=== PATIENT | male | born 1955 ===

== ENCOUNTER 2020-07-01 12:21 | Outpatient (REF) | payer MEDICARE, MEDICAID, SELFPAY | END 2020-07-01 12:22 | disposition home or self-care (01) | LOC: HO.LAB 12:21 | PROVIDERS: Visit Provider Internal Medicine | DX: Z20.828 Contact with and (suspected) exposure to other viral communicable diseases (principal) | CPT/HCPCS: C9803; U0003 ==

== ENCOUNTER → 2021-02-02 06:56 | Outpatient (REF) | payer MEDICARE, SELFPAY ==
--- NOTE | 2021-02-02 | ECG_ITS ---
Test Reason : F31.9 BIPOLAR DISORD Blood Pressure : / mmHG Vent. Rate : 048 BPM Atrial Rate : 048 BPM P-R Int : 140 ms QRS Dur : 074 ms QT Int : 406 ms P-R-T Axes : 076 067 076 degrees QTc Int : 362 ms Sinus bradycardia Otherwise normal ECG When compared with ECG of 02-APR-2018 09:00, Vent. rate has decreased BY 49 BPM QT has shortened Referred By: Magdalena Fisher Electronically Signed By:SAUD ALEXANDER MD
== END ==
LOC: HO.CARD 06:56
PROVIDERS: PCP Family Medicine; Visit Provider Family Medicine
DX: F31.9 Bipolar disorder, unspecified (principal)
CPT/HCPCS: 93005

== ENCOUNTER → 2021-09-20 11:07 | Outpatient (BNVA) | payer MEDICARE, SELFPAY | PROVIDERS: PCP Registered Nurse Community Health; Referring Provider Registered Nurse Community Health; Visit Provider Physician Assistant | DX: Z12.11 Encounter for screening for malignant neoplasm of colon (principal); F11.90 Opioid use, unspecified, uncomplicated; F40.298 Other specified phobia; R10.13 Epigastric pain | CPT/HCPCS: 99202 ==

== ENCOUNTER 2021-12-03 09:00 | Day surgery (SDC) | payer MEDICARE, SELFPAY ==
[2021-11-29 14:21] VITALS: BMI 19.7
--- NOTE | 2021-12-02 09:37 | P.CONAN_ITS ---
Documented by User: Breonna Encarnacion NP 12/02/21 09:37 HPI - Anesthesia Eval Consult details Narrative: 66yo M for Upper Endoscopy and Colonoscopy Methadone daily PMFSH Active Problems Active Problems: All Active Problems (Updated 11/29/21 @ 14:20 by Grace Siegel RN) Encounter for screening colonoscopy (Acute) Dyspepsia (Acute) Cancer phobia (Acute) Methadone use (Acute) Past Medical History Medical History Anxiety Methadone use Family History Family History Father Cancer Father Cancer Other HTN (hypertension) Surgical History Surgical History History of esophagogastroduodenoscopy (EGD) Hx of colonoscopy Social History Social History Patient Tobacco Use Status: Current everyday Tobacco user Tobacco use type: Cigarette Cigarettes Per Day: 5 Use of substances other than those prescribed or required for medical reasons: No Are you DNR?: No Advance Directives: No Advance Directives Information Provided: Yes Advance Directives on File: No Meds Allergies Allergy/AdvReac Type Severity Reaction Status Date / Time No Known Allergies Allergy Verified 11/29/21 14:21 [No Known Allergies*] Home Medications Medication Instructions Recorded Confirmed Last Taken Type famotidine 40 mg tablet 40 mg PO BID 09/20/21 11/29/21 Unknown History methadone 40 mg soluble tablet 35 mg PO DAILY tab 09/20/21 11/29/21 12/03/21 History nicotine (polacrilex) 4 mg gum mg PO 09/20/21 Unknown History nicotine 14 mg/24 hr daily 1 patch TOPICAL DAILY 09/20/21 11/29/21 Unknown History transdermal patch perphenazine 8 mg tablet 8 mg PO BID 09/20/21 11/29/21 Unknown History Exam Exam Date and Time: December 02, 2021 0937 Height,Weight and Vital Signs: Height 5 ft 6 in Weight 55.338 kg Assessment and Plan Assessment Anesthesia Assessment: Chart Reviewed Documented by User: Moni Brooks MD 12/03/21 10:32 [facility] Past Medical History Medical History Anxiety Methadone use Functional capacity: independent ambulation Family History Family History Father Cancer Father Cancer Other HTN (hypertension) Family history of problems with anesthesia: No Surgical History Surgical History History of esophagogastroduodenoscopy (EGD) Hx of colonoscopy History of Problems with Anesthesia: No Social History Social History Patient Tobacco Use Status: Current everyday Tobacco user Tobacco use type: Cigarette Cigarettes Per Day: 5 Use of substances other than those prescribed or required for medical reasons: No Are you DNR?: No Advance Directives: No Advance Directives Information Provided: Yes Advance Directives on File: No Meds Allergies Allergy/AdvReac Type Severity Reaction Status Date / Time No Known Allergies Allergy Verified 11/29/21 14:21 [No Known Allergies*] Home Medications Medication Instructions Recorded Confirmed Last Taken Type famotidine 40 mg tablet 40 mg PO BID 09/20/21 11/29/21 Unknown History methadone 40 mg soluble tablet 35 mg PO DAILY tab 09/20/21 11/29/21 12/03/21 History nicotine (polacrilex) 4 mg gum mg PO 09/20/21 Unknown History nicotine 14 mg/24 hr daily 1 patch TOPICAL DAILY 09/20/21 11/29/21 Unknown History transdermal patch perphenazine 8 mg tablet 8 mg PO BID 09/20/21 11/29/21 Unknown History Exam Airway Mallampati Class: II TM Dist: >3cm Neck ROM: Full Denture: Upper and Lower Heart: RRR Lungs: CTS Assessment and Plan Final Anesthetic Review Family History of Problems with Anesthesia: No History of Problems with Anesthesia: No NPO: Yes ASA Class: II Final Preanesthetic Review: No Changes in Pt Med Stat, Meds/Allgs Chart Reviewed, Consent Obtained/Reviewed and Anes Risks/Benef Reviewed Patient Risk: Low Procedure Risk: Low Anesthetic Plan Anesthetic Plan: MAC: Disposition: Standard PACU
[2021-12-03 09:17] VITALS: BP 106/72; PULSE 78; RESP 16; TEMP 36.4; O2SAT 97
[2021-12-03] MEDS: Lactated Ringers 1,000 ML 100 ML IVCONT (09:32)
--- NOTE | 2021-12-03 10:10 | MHC.SHP ---
Pre-Procedural Eval Section A Date of Service: 12/03/21 The patient is an INPATIENT: No The History & Physical has been completed within 30 days and I have reviewed it.: No Section B Chief Complaint: screening,epigastric pain Relevant Family History (Specify if Yes): Yes Relevant Social History: Tobacco Use Present Medications: see Short Stay Collaborative assessment Medical History: Significant History (Dyspepsia, cancer phobia, methadone use) History of Previous Operations: Relevant previous surgery/procedure and date(s) (History of EGD and colonoscopy) Allergies: Allergies Allergy/AdvReac Type Severity Reaction Status Date / Time No Known Allergies Allergy Verified 11/29/21 14:21 [No Known Allergies*] Review of Systems Sugical H&P ROS: Negative: Constitution, Cardiovascular and Gastrointestinal and Yes, Specify: Respiratory (chronic cough) Exam Surgical H&P Exam: Normal: Heart, Normal: Lungs, Normal: Extremities and Normal: Abdomen Plan Diagnosis/Plan: Unchanged I have reviewed the history and physical and performed a pertinent physical examination on my patient. No changes have occurred unless specified.
--- NOTE | 2021-12-03 10:12 | W.PM.OPN ---
Operative Note Operative Note Date of Service: 12/03/21 Narrative: Pre-op diagnosis: Colon cancer screening, dyspepsia, family history of throat cancer (Dad in his early 60's) Post-op diagnosis:?other (gastritis, duodenitis, diverticulosis) Procedure: FLEXIBLE TRANSORAL UPPER GASTROINTESTINAL ENDOSCOPY WITH BIOPSIES AND COLONOSCOPY TILL CECUM UPPER ENDOSCOPY Consent:?Indications for the procedure and potential complications of bleeding, perforation, reaction to medications and missed diagnosis were discussed with the patient and informed consent was obtained. Instrument:?Olympus GIF H 190 mid size upper endoscope Monitoring: Vital signs and clinical assessment, continuous EKG monitoring, Pulse oximetry, Carbon Dioxide monitoring and blood pressure monitoring were done throughout the procedure. Procedure:?The patient was placed in the left lateral decubitis position and pre-procedure medications were administered and a bite block was placed. The endoscope was inserted into the mouth and advanced under direct vision to the third part of duodenum. A careful inspection was made as the upper endoscope was withdrawn including a retroflexed examination of the proximal stomach; Findings and interventions are described below. Findings: Larynx:? Normal Esophagus:?GE junction at 40 cms.? No esophagitis or Tolliver's. Stomach:?Mild gastric erythema. Biopsies were obtained. Grade 2 flap valve on retroflexed examination of the cardia. Duodenum:?Mild duodenitis in the bulb and nomral descending duodenum Intervention:?Biopsies as noted above COLONOSCOPY PROCEDURE NOTE Consent:?Indications for the procedure and potential complications of bleeding, perforation, reaction to medications and missed diagnosis were discussed with the patient and informed consent was obtained. Instrument:?Olympus PCF H 190 L variable stiffness pediatric colonoscope Monitoring:?Vital signs and clinical assessment, intermittent blood pressure monitoring, continuous EKG monitoring, Pulse oximetry and Carbon Dioxide monitoring were done throughout the procedure. Colon withdrawl time was 21? minutes. Procedure:?The patient was placed in the left lateral decubitis position and pre-procedure medications were administered. After a digital rectal examination of the ano-rectum, the video colonoscope was inserted into the rectum and advanced through the colon to the cecum. The colonoscope was slowly withdrawn in a retrograde panoramic fashion and the colon mucosa was carefully examined including a retroflexed view of the rectum. Findings and interventions are described below. Procedure Difficulty:?: Colon was long and tortuous and there was spasm and some loop formation Findings: Terminal Ileum: Not evaluated Cecum:? Partially evaluated due to poor prep in the cecum Ascending Colon:??Normal Transverse Colon:??Normal Descending Colon:? Moderate diverticulosis Sigmoid Colon:??Moderate diverticulosis Rectum:??Normal Ano-rectum:??Hypertrophied anal papillae Colon preparation:? Good to fair despite copious irrigation and poor in the cecum due to semi-solid stools Impression and Post Procedure Diagnosis: Endoscopy Findings: STOMACH: Mild gastric erythema. Biopsies were obtained to check for H Pylori. DUODENUM: Mild duodenitis in the bulb Colonoscopy Findings: No polyps were detected Moderate diverticulosis seen in the Left colon Plan: Await pathology results Patient has an appointment on 12/16/21 in the GI Clinic with FRANCO Moss. Repeat Colonoscopy interval based on path results - in 5 years due to fair prep (Bisacodyl 2 tablets daily x 5 days before colonoscopy versus 2 day prep for future colonoscopies). Above findings were reviewed with the patient and diverticulosis handouts were given in the discharge area Surgeon: Rizwan Casas MD Anesthesia:?MAC (Melva Akhtar CRNA) Was an Medical Practitioners used for this Procedure?:?Yes Medical Practitioners:?Idania Sheffield Estimated blood loss (mL):?0 Pathology:?other (a. gastric antrum bx's, r/o h. pylori) Condition:?stable Disposition:?PACU
[2021-12-03 11:33] VITALS: BP 105/56; PULSE 76; RESP 16; TEMP 36.4; O2SAT 99
[2021-12-03 11:48] VITALS: BP 104/62; PULSE 68; RESP 17; TEMP 36.1; O2SAT 97
--- NOTE | 2021-12-03 14:36 | HO.POSTANES ---
Post Anesthesia Evaluation Post Anesthesia Evaluation Vital Signs: Vital Signs Temp Pulse Resp BP Pulse Ox 12/03/21 11:48 97.0 F 68 17 104/62 97 12/03/21 11:33 97.6 F 76 16 105/56 L 99 12/03/21 09:17 97.6 F 78 16 106/72 97 Anesthesia: Monitored Mental Status: Awake Pain Control: Satisfactory Nausea/Vomiting: None Hydration: Adequate Anesthesia-Related Issues: No Anes. Related Issues
== END 2021-12-03 13:10 | disposition home or self-care (01) ==
PROVIDERS: Visit Provider Internal Medicine Gastroenterology
PROC: (CPT 43239; principal; 2021-12-03 10:30)
DX: Z12.11 Encounter for screening for malignant neoplasm of colon (principal); K57.30 Diverticulosis of large intestine without perforation or abscess without bleeding; K62.89 Other specified diseases of anus and rectum; K29.60 Other gastritis without bleeding; K29.80 Duodenitis without bleeding; Z80.1 Family history of malignant neoplasm of trachea, bronchus and lung; F41.1 Generalized anxiety disorder; F11.90 Opioid use, unspecified, uncomplicated; F40.298 Other specified phobia; Z79.899 Other long term (current) drug therapy
CPT/HCPCS: 43239; G0121; 88305; 88342; J2250

== ENCOUNTER → 2021-12-16 08:42 | Outpatient (BNVA) | payer MEDICARE, SELFPAY | PROVIDERS: Visit Provider Physician Assistant | DX: K57.30 Diverticulosis of large intestine without perforation or abscess without bleeding (principal) | CPT/HCPCS: 99212 ==

== ENCOUNTER 2022-03-08 12:37 | Outpatient (REF) | payer MEDICARE, SELFPAY ==
--- NOTE | ~2022-03-08 | XR_ITS ---
EXAMINATION: XR SHOULDER, RIGHT CLINICAL INFORMATION: Shoulder pain COMPARISON: None TECHNIQUE: Four views of the right shoulder. FINDINGS: No fracture or dislocation. The glenohumeral joint is well aligned. Small osteophytes are present. The joint space is maintained. Mild hypertrophic degenerative change of the acromioclavicular joint. The visualized lung is clear. The visualized ribs are intact. XR/XR shoulder RT min 2V IMPRESSION: Mild degenerative changes at the right shoulder.
== END 2022-03-08 12:38 | disposition home or self-care (01) ==
LOC: HO.XRAY 12:37
PROVIDERS: PCP Registered Nurse Community Health; Visit Provider Registered Nurse Community Health
DX: M25.511 Pain in right shoulder (principal)
CPT/HCPCS: 73030

== ENCOUNTER → 2022-03-25 09:59 | Outpatient (BNVA) | payer MEDICARE, SELFPAY | PROVIDERS: PCP Registered Nurse Community Health; Visit Provider Surgery | DX: K40.90 Unilateral inguinal hernia, without obstruction or gangrene, not specified as recurrent (principal); F11.90 Opioid use, unspecified, uncomplicated; R10.13 Epigastric pain | CPT/HCPCS: 99202 ==

== ENCOUNTER 2022-03-30 08:43 | Outpatient (REF) | payer MEDICARE, SELFPAY ==
--- NOTE | 2022-03-30 09:00 | PFT_ITS ---
Forced vital capacity 69%, FEV1 41%, FEV1/FVC ratio is 45, HOT13-47 of 16% and MVV 34%. Post bronchodilator therapy, there is marked improvement in FVC, FEV1, and ONR94-19. Total lung capacity 104% and residual volume 178%. Diffusion capacity 51%. CONCLUSION: Severe obstructive airway disorder with evidence of air trapping. Marked improvement after bronchodilator therapy resulting in partial reversibility. These findings are consistent with asthma/COPD overlap syndrome. Clinical correlation is recommended. MD GERONIMO Pino/MODL / [phone]
== END 2022-03-30 08:44 | disposition home or self-care (01) ==
LOC: HO.RESP 08:43
PROVIDERS: PCP Registered Nurse Community Health; Visit Provider Registered Nurse Community Health
DX: R06.02 Shortness of breath (principal); F17.200 Nicotine dependence, unspecified, uncomplicated
CPT/HCPCS: 94060; 94727; 94729

== ENCOUNTER → 2022-07-13 10:40 | Outpatient (BNVA) | payer OTHER, SELFPAY | PROVIDERS: PCP Registered Nurse Community Health; Visit Provider Internal Medicine | DX: J44.9 Chronic obstructive pulmonary disease, unspecified (principal); F17.210 Nicotine dependence, cigarettes, uncomplicated | CPT/HCPCS: 99202 ==

== ENCOUNTER 2023-03-23 13:26 | Outpatient (REF) | payer OTHER, SELFPAY ==
--- NOTE | ~2023-03-23 | XR_ITS ---
EXAMINATION: XR SHOULDER, BILATERAL CLINICAL INFORMATION: Bilateral Shoulder Pain COMPARISON: None available. TECHNIQUE: AP external rotation, Grashey, scapular Y, and axillary views of the both shoulders. FINDINGS: Examination of the right shoulder show slight elevation of the right humeral head, which could indicate rotator cuff insufficiency. No fracture, dislocation or bone lesion is evident. There are no significant erosive or proliferative findings. Examination of the left shoulder shows no fracture, dislocation or bone lesion. No erosive or proliferative changes are detected. XR/XR shoulder LT min 2V IMPRESSION: 1. Mild elevation of the right humeral head which could indicate chronic rotator cuff insufficiency or thickening. 2. Unremarkable plain radiographs of the left shoulder.
--- NOTE | ~2023-03-23 | XR_ITS ---
EXAMINATION: XR SHOULDER, BILATERAL CLINICAL INFORMATION: Bilateral Shoulder Pain COMPARISON: None available. TECHNIQUE: AP external rotation, Grashey, scapular Y, and axillary views of the both shoulders. FINDINGS: Examination of the right shoulder show slight elevation of the right humeral head, which could indicate rotator cuff insufficiency. No fracture, dislocation or bone lesion is evident. There are no significant erosive or proliferative findings. Examination of the left shoulder shows no fracture, dislocation or bone lesion. No erosive or proliferative changes are detected. XR/XR shoulder RT min 2V IMPRESSION: 1. Mild elevation of the right humeral head which could indicate chronic rotator cuff insufficiency or thickening. 2. Unremarkable plain radiographs of the left shoulder.
== END 2023-03-23 13:27 | disposition home or self-care (01) ==
LOC: HO.HHCX 13:26
PROVIDERS: Visit Provider Family Medicine
DX: S46.011A Strain of muscle(s) and tendon(s) of the rotator cuff of right shoulder, initial encounter (principal); S46.012A Strain of muscle(s) and tendon(s) of the rotator cuff of left shoulder, initial encounter
CPT/HCPCS: 73030

== ENCOUNTER 2023-04-20 09:43 | Outpatient (AMB) | payer OTHER, SELFPAY ==
--- NOTE | 2023-04-20 10:04 | MHC.OFFVIS ---
Intake Intake Visit Reasons: New Pt - Bilateral Shoulder Pain Intake Note: Leon is a 68 year old left hand dominant male who presents today as a new patient with complaints of bilateral shoulder pain. Right should worse than the left shoulder. Patient reports that this pain has been ongoing for about 15 years. 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 Has not done PT in many years, found minimal relief with Tylenol and Lidocaine patches. Allergies No Known Allergies [No Known Allergies*] Allergy (Verified 04/20/23 10:08) Medication List - Last Reconciled 04/20/23 by Jocelyn Shanks, RN albuterol sulfate 90 mcg/actuation 2 puffs inhalation Q6H PRN famotidine 40 mg PO DAILY PRN fluticasone propion-salmeterol 500-50 mcg/dose (Wixela Inhub) 1 inh inhalation BID 30 days methadone 35 mg PO DAILY perphenazine 8 mg PO BID PRN HPI New Pt - Bilateral Shoulder Pain HPI Details Leon is a 68 year old man who presents with complaints of chronic bilateral shoulder pain, R>L. He says his pain has been present for ~15 years. He has pain with daily activity, which he says is primarily in his neck & upper back. He denies any numbness or tingling. He attended PT in [place] in the past, which he did not find particularly helpful. [facility] Medical History (Updated 04/20/23 @ 10:29 by Jaun Powell) Asthma-COPD overlap syndrome Smoker Anxiety Methadone use Surgical History Hx of colonoscopy History of esophagogastroduodenoscopy (EGD) Family History Father Cancer Father Cancer Other HTN (hypertension) Social History Patient Tobacco Use Status: Current everyday Tobacco user Tobacco use type: Cigarette Cigarettes Per Day: 3 Years Smoked: 53 Review of Systems Const All systems reviewed & are unremarkable except as noted in HPI and below Physical Exam Const General: no acute distress, alert and awake Orientation/consciousness: patient oriented x3 HEENT Head: Yes normocephalic and Yes atraumatic Eyes EOM: EOMs intact bilaterally Resp Effort & Inspection: normal respiratory effort and able to speak in complete sentences Cardio Jugular venous distension: no JVD Skin General skin exam: turgor normal Rashes: no rashes Neuro General: patient oriented x3 Extrem Other: Bilateral Shoulders: Tenderness over ky-scapular region & trapezius + H&N on the right, but mild Psych Appearance: grossly normal Affect: normal affect Attitude: cooperative Office Procedures Joint Injection/Drain Joint Injection/Drain Details: Injected 1 mL of Decadron and 3 mL 1% lidocaine and 3 mL of 0.25% Marcaine. Site was prepped using aseptic technique. Patient tolerated the procedure well. Primary Site: right shoulder Approach Used: posterolateral Coding 81254 - Large joint Procedure code (CPT) selection complete Results Reviewed Results Reviewed: 04/20/23 10:16 BUPivacaine MPF 0.25 % [Sensorcaine-MPF 0.25% 10 ML] 10 ml .ROUTE .STK-MED ONE Lidocaine HCl 2 % MPF [Xylocaine 2 % MPF] 5 ml .ROUTE .STK-MED ONE dexAMETHasone sod phosphate [Decadron] 4 mg .ROUTE .STK-MED ONE I personally reviewed relevant radiographs. 1. Mild elevation of the right humeral head which could indicate chronic rotator cuff insufficiency or thickening. 2. Unremarkable plain radiographs of the left shoulder. Assessment & Plan Assessment & Plan (1) Chronic periscapular pain: Code(s): M25.519 - Pain in unspecified shoulder; G89.29 - Other chronic pain Plan: This is a 68 year old man primarily with ky-scapular & thoracic pain, along with right shoulder impingement syndrome He has pain with daily activity, and denies any numbness or tingling. He found limited relief from PT in the past and denies any other treatment. I injected his right shoulder today, which he tolerated well. If this injection is helpful then we can repeat in the future, but I suspect this will not be the case. I think he would benefit from seeing our colleagues in Pain Management for what appears to be periscapular and thoracic back pain instead. (2) Impingement syndrome of right shoulder: Code(s): M75.41 - Impingement syndrome of right shoulder Plan Scribed for Anup Graham MD by Jaun Powell medical sales consultant, on 04/20/23 at 10:15 AM, EST. Coding Level of Care Code New Pt Level 3 (91816) Diagnoses Chronic periscapular pain M25.519; G89.29 Impingement syndrome of right shoulder M75.41 CPT Codes Coding - 96821 Large joint: 72811 - Large joint ([id number])
== END 2023-04-20 10:39 | disposition home or self-care (01) ==
PROVIDERS: PCP Registered Nurse Community Health; Visit Provider Orthopaedic Surgery
DX: M75.41 Impingement syndrome of right shoulder (principal); G89.29 Other chronic pain
CPT/HCPCS: 20610; 99203

== ENCOUNTER → 2023-04-20 09:43 | Outpatient (BNVA) | payer OTHER, SELFPAY | PROVIDERS: PCP Registered Nurse Community Health; Visit Provider Orthopaedic Surgery | DX: M75.41 Impingement syndrome of right shoulder (principal); G89.29 Other chronic pain; M25.511 Pain in right shoulder | CPT/HCPCS: 20610; J1100 ==

== ENCOUNTER 2024-01-16 10:54 | Outpatient (REF) | payer OTHER, SELFPAY ==
--- NOTE | ~2024-01-16 | XR_ITS ---
EXAMINATION: XR SHOULDER, LEFT CLINICAL INFORMATION: Acute left shoulder pain COMPARISON: Radiographs 03/23/2023 TECHNIQUE: AP external rotation, Grashey, scapular Y, and axillary views of the left shoulder. FINDINGS: Mild glenohumeral and moderate acromioclavicular osteoarthritis. No change. No fracture or malalignment. XR/XR shoulder LT min 2V IMPRESSION: Mild glenohumeral and moderate acromioclavicular osteoarthritis.
== END 2024-01-16 10:55 | disposition home or self-care (01) ==
LOC: HO.HHCX 10:54
PROVIDERS: Visit Provider Family Medicine
DX: M25.512 Pain in left shoulder (principal)
CPT/HCPCS: 73030

== ENCOUNTER 2024-02-08 09:05 | Outpatient (AMB) | payer OTHER, SELFPAY ==
[2024-02-08 09:06] VITALS: BMI 19.8
--- NOTE | 2024-02-08 09:06 | MHC.OFFVIS ---
Vital Signs 02/08/24 09:06 Height 5 ft 6 in Weight 122 lb 8 oz BMI 19.8 Intake Visit Reasons: Right inguinal hernia Intake Note: This patient presents for a right inguinal hernia assessment. Pt c/o; reports bulge, reports pain and discomfort, occasional constipation. Shock Absorption Floor Layer Required: No Shock Absorption Floor Layer Services: Shock Absorption Floor Layer Offered & Declined Accompanied by: Other Relationship Allergies No Known Allergies [No Known Allergies*] Allergy (Verified 02/08/24 09:12) Medication List - Last Reconciled 02/08/24 by Asim Delcid MD albuterol sulfate 90 mcg/actuation 2 puffs inhalation Q6H PRN famotidine 40 mg PO DAILY PRN fluticasone propion-salmeterol 500-50 mcg/dose (Wixela Inhub) 1 inh inhalation BID 30 days methadone 35 mg PO DAILY perphenazine 8 mg PO BID PRN HPI HPI Right inguinal hernia: Details: 69-year-old male referred for a right inguinal hernia. He says that he has had this reducible mass on right groin for about 10 years. He however says that he has been worsening with more discomfort. His states that she thinks this has been getting bigger. He has a history of COPD and asthma as well as remote history of drug abuse. He has been on methadone for years now and says he has not used drugs for several years. He says he is healthy overall. [facility] Medical History Asthma-COPD overlap syndrome Smoker Anxiety Methadone use Surgical History Hx of colonoscopy History of esophagogastroduodenoscopy (EGD) Family History Father Cancer Father Cancer Other HTN (hypertension) Social History Patient Tobacco Use Status: Current everyday Tobacco user Tobacco use type: Cigarette Cigarettes Per Day: 3 Years Smoked: 53 Review of Systems Const Denies chills and Denies fever(s) Card Denies chest pain, Denies dyspnea and Denies dyspnea on exertion Resp Denies cough, Denies dyspnea and Denies dyspnea on exertion GI Denies hematochezia and Denies change in bowel habits Denies hematuria and Denies difficulty urinating Musc Denies back pain and Denies limited range of motion Neuro Denies focal weakness and Denies convulsions Psych Denies depression and Denies mood swings Physical Exam Vital Signs: BMI result Body Mass Index 19.8 Const General: comfortable and no acute distress Orientation/consciousness: patient oriented x3 Neck Neck: Yes no lymphadenopathy Resp Auscultation: clear to auscultation bilaterally Cardio Rhythm: regular rhythm GI Other: Reducible mass on the right groin Palpation (GI): Soft to palpation, nontender and no guarding Neuro General: patient oriented x3 Assessment & Plan Assessment & Plan (1) Right inguinal hernia: Code(s): K40.90 - Unilateral inguinal hernia, without obstruction or gangrene, not specified as recurrent Category: Medical Plan He has significant discomfort with his right inguinal hernia. Wants to proceed with repair. I reviewed with him the technique of repair of the right inguinal hernia with mesh. I explained the risks including but not limited to bleeding, infections, bowel injury, injury to other organs including the vas deferens, recurrence, postop pain, as well as the benefits and alternatives. I also explained to him what to expect postoperatively . He understands and wants to proceed. Coding Level of Care Code New Pt Level 3 (17826) Diagnoses Right inguinal hernia K40.90
== END 2024-02-08 09:28 | disposition home or self-care (01) ==
PROVIDERS: PCP Registered Nurse Community Health; Visit Provider Surgery
DX: K40.90 Unilateral inguinal hernia, without obstruction or gangrene, not specified as recurrent (principal)
CPT/HCPCS: 99204

== ENCOUNTER → 2024-02-08 09:05 | Outpatient (BNVA) | payer OTHER, SELFPAY | PROVIDERS: PCP Registered Nurse Community Health; Visit Provider Surgery | DX: K40.90 Unilateral inguinal hernia, without obstruction or gangrene, not specified as recurrent (principal) | CPT/HCPCS: 99202 ==

== ENCOUNTER 2024-02-16 10:28 | Outpatient (AMB) | payer OTHER, SELFPAY ==
--- NOTE | 2024-02-16 11:10 | A.OFFVIS_ITS ---
Vital Signs 02/16/24 11:11 Height 5 ft 6 in Weight 122 lb BMI 19.7 Intake Visit Reasons: OV-B/L shoulder pain-Left shoulder worse Intake Note: Leon is a 69 year old male who presents today for a follow up appointment of his bilateral periscapular pain. He was last seen in April of 2023, where the right shoulder injection. He was also given a referral to pain management for thoracic back and periscapular pain. Patient reports that this injection was helpful he would like to have both of his shoulder injected. 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 He was last seen in April of 2023, where the right shoulder injection. He was also given a referral to pain management for thoracic back and periscapular pain. Patient reports that this injection was helpful he would like to have both of his shoulder injected. 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 [facility] Medical History Asthma-COPD overlap syndrome Smoker Anxiety Methadone use Surgical History Hx of colonoscopy History of esophagogastroduodenoscopy (EGD) Family History Father Cancer Father Cancer Other HTN (hypertension) Social History Patient Tobacco Use Status: Current everyday Tobacco user Tobacco use type: Cigarette Cigarettes Per Day: 3 Years Smoked: 53 Physical Exam Vital Signs: BMI result Body Mass Index 19.7 Const General: no acute distress, alert and awake Orientation/consciousness: patient oriented x3 HEENT Head: Yes normocephalic and Yes atraumatic Eyes EOM: EOMs intact bilaterally Resp Effort & Inspection: normal respiratory effort and able to speak in complete sentences Cardio Jugular venous distension: no JVD Skin General skin exam: turgor normal Rashes: no rashes Neuro General: patient oriented x3 Extrem Other: Bilateral Shoulders: Tenderness over ky-scapular region & trapezius + H&N on the right, but mild Psych Appearance: grossly normal Affect: normal affect Attitude: cooperative Office Procedures Joint Injection/Aspiration Joint Injection/Aspiration Details: Injected 1 mL of Decadron and 3 mL 1% lidocaine and 3 mL of 0.25% Marcaine. Site was prepped using aseptic technique. Patient tolerated the procedure well. Primary Site: right shoulder Secondary Site: left shoulder Approach Used: anterolateral Coding - Large joint 52184 - Glenohumeral/Tronchanteric Bursa/Intraarticular Procedure code (CPT) selection complete Assessment & Plan Assessment & Plan (1) Impingement of both shoulders: Code(s): M25.811 - Other specified joint disorders, right shoulder; M25.812 - Other specified joint disorders, left shoulder Category: Medical Plan: Bilateral shoulder impingement syndrome/ bursitis Injected both shoulders. F/u if no improvment Coding Level of Care Code Est Pt Level 3 (25150) Diagnoses Impingement of both shoulders M25.811; M25.812 CPT Codes Coding - Large joint: 23258 - Large joint ([id number]) Coding - Joint 7: 74680 - Glenohumeral/Tronchanteric Bursa/Intraarticular ([id number])
[2024-02-16 11:11] VITALS: BMI 19.7
== END 2024-02-16 11:32 | disposition home or self-care (01) ==
PROVIDERS: PCP Registered Nurse Community Health; Visit Provider Orthopaedic Surgery
DX: M25.811 Other specified joint disorders, right shoulder (principal); M25.812 Other specified joint disorders, left shoulder
CPT/HCPCS: 20610; 99213

== ENCOUNTER → 2024-02-16 10:28 | Outpatient (BNVA) | payer OTHER, SELFPAY | PROVIDERS: PCP Registered Nurse Community Health; Visit Provider Orthopaedic Surgery | DX: M25.811 Other specified joint disorders, right shoulder (principal); M25.812 Other specified joint disorders, left shoulder | CPT/HCPCS: 20610; 99212; J0665; J1100 ==

== ENCOUNTER 2024-02-22 09:01 | Outpatient (AMB) | payer OTHER, SELFPAY ==
[2024-02-22 09:18] VITALS: BP 94/52; PULSE 61; O2SAT 92; BMI 19.4
--- NOTE | 2024-02-22 09:18 | A.OFFVIS_ITS ---
Vital Signs 02/22/24 09:18 Height 5 ft 6 in Weight 120 lb 2.431 oz BMI 19.4 BP 94/52 L Blood Pressure Location Rt brachial Position Sitting Pulse 61 Pulse Source Pulse Oximeter Pulse Oximetry (%) 92 Oxygen Delivery Method Room Air Intake Visit Reasons: R Inguinal Hernia - Bhavin 03/05 Intake Note: pt is here for pre-op clearance and states he feels well, pt needs refill on Wixela sent to 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 UNDERGOING HERNIORRHAPHY HE WAS LAST SEEN BY ME IN JUNE 2022. HIS THE PULMONARY FUNCTION TEST SHOWED THAT HE HAD RATHER SEVERE OBSTRUCTIVE AIRWAY DISORDER WITH GOOD RESPONSE TO BRONCHODILATORS, C/W ASTHMA/COPD OVERLAP SYNDROME. HE HAS BEEN SMOKING CIGARETTES FOR WHOLE ADULT LIFE. HE CLAIMS THAT HE HAS NOT SMOKED SINCE 8 MONTHS AGO. BREATHING HADDAD FEELING BETTER AND HAS ONLY MILD OCCASIONAL COUGH. HE WORKS AT [employer] AND WALKS AROUND THE WHOLE DAY WITHOUT GETTING SHORT OF BREATH. HIS CURRENT INHALER IS WIXELA 500-50 1 INHALATION B.I.D. HE HARDLY NEEDS TO USE ALBUTEROL. [facility] Medical History Asthma-COPD overlap syndrome Smoker Anxiety Methadone use Surgical History Hx of colonoscopy History of esophagogastroduodenoscopy (EGD) Family History Father Cancer Father Cancer Other HTN (hypertension) Social History Patient Tobacco Use Status: Former Tobacco user Tobacco use type: Cigarette Cigarettes Per Day: 3 Years Smoked: 53 Review of Systems Const All systems reviewed & are unremarkable except as noted in HPI and below Eyes Reports no additional complaints ENT Reports no additional complaints Card Denies chest pain, Denies irregular heart rhythm and Reports dyspnea on exertion (mild) Resp Reports as per HPI and Reports dyspnea on exertion (mild) GI Reports dyspepsia and Reports heartburn (Controlled with med) Reports no additional complaints Musc Reports back pain and Reports myalgias Skin/Breast Reports system reviewed and no additional complaints, except as documented Neuro Reports no additional complaints Psych Reports anxiety Endo Reports no additional complaints Tarun/Lymph Reports no additional complaints Aller/Immun Reports no additional complaints Physical Exam Vital Signs: Last Vital Signs Pulse 61 02/22/24 09:18 BP 94/52 L 02/22/24 09:18 Pulse Ox 92 02/22/24 09:18 Oxygen Delivery Method Room Air 02/22/24 09:18 BMI result Body Mass Index 19.4 Const Other: He is of a thin build, otherwise healthy looking General: comfortable, no acute distress, alert and awake Orientation/consciousness: patient oriented x3 HEENT Head: Yes normal to inspection General nose exam: No nasal polyps present and No nasal discharge present Face and sinus: Yes sinuses nontender Mouth: oropharynx normal Throat: Yes posterior oropharynx normal Eyes General: appearance normal, both eyes and all related structures Neck Neck: Yes normal visual inspection, Yes no lymphadenopathy, Yes trachea midline and Yes no JVD Thyroid: Thyroid normal Chest Chest palpation & inspection: normal inspection of the chest, normal palpation of entire chest wall and no tenderness Resp Other: Percussion note hyper-resonant, Breath sounds are moderately distant with Prolonged expiratory phase NO WHEEZES OR CREPITATIONS ARE HEARD TODAY. Cardio Palpation: normal PMI Rate: regular rate Rhythm: regular rhythm Heart sounds: no gallops and no murmurs Peripheral pulses: Peripheral pulses 2+ throughout GI Palpation (GI): Soft to palpation, nontender, No hepatosplenomegaly present and no masses Auscultation: normal bowel sounds Back/Spine/Pelvis Thoracic/Lumbar Spine: thoracic and lumbar spine normal to inspection Skin General skin exam: no rashes or lesions noted Neuro General: patient oriented x3 and no focal motor deficits Cranial nerves: Yes CN's II-XII intact bilaterally Extrem General: Yes normal to inspection, Yes no clubbing, cyanosis or edema and Yes no calf tenderness Psych Appearance: grossly normal and well kempt Speech and movement: Normal speech and movement present Office Procedures Spirometry Testing Spirometry Comments: In office spirometry completed with results given to Dr Bridges. 28746- Spirometry Results Reviewed Results Reviewed: SPIROMETRY FVC 83% FEV1 54%, FEF 25-75 % c/w moderately severe obstructive airway disorder Assessment & Plan Assessment & Plan (1) Asthma-COPD overlap syndrome: Comment: THIS GENTLEMAN HAS BEEN TREATED FOR ASTHMA/COPD OVERLAP SYNDROME WITH ICS/LABA . COMBINATION AND HAS DONE VERY WELL CURRENTLY HE IS ON WIXELA 500-50 1 INHALATION B.I.D.. HE HARDLY NEEDS TO USE ALBUTEROL HFA. HIS PHYSICAL CAPACITY IS GOOD HE WORKS WHOLE DAY WITHOUT SHORTNESS OF BREATH. Code(s): J44.9 - Chronic obstructive pulmonary disease, unspecified Category: Medical (2) Smoker: Comment: Longstanding history but cut down to 3-5 cigarettes a day for a few years and then has now completely quit. He seems to be well motivated and does not have intention to go back to smoking. Code(s): F17.200 - Nicotine dependence, unspecified, uncomplicated Category: Social Hx Plan: Commended for not smoking. I talked to him about annual lung screening, and he is agreeable So I have made referral for annual lung screening program Plan FAR PULMONARY CLEARANCE IS CONCERNED, HE HAS NO CONTRAINDICATION. FROM PULMONARY POINT OF VIEW HE IS CLEARED FOR SURGERY. . Medications: New fluticasone propion-salmeterol 250-50 mcg/dose (Wixela Inhub) 1 inh inhalation BID 60 ea 5RF asthma/copd 30 days Coding Level of Care Code Est Pt Level 3 (42287) Diagnoses Asthma-COPD overlap syndrome J44.9 Smoker F17.200 CPT Codes Spirometry - CPT: 69719- Spirometry ([id number])
== END 2024-02-22 09:50 | disposition home or self-care (01) ==
PROVIDERS: PCP Registered Nurse Community Health; Visit Provider Internal Medicine
DX: J44.9 Chronic obstructive pulmonary disease, unspecified (principal); F17.200 Nicotine dependence, unspecified, uncomplicated
CPT/HCPCS: 94010; 99213

== ENCOUNTER → 2024-02-22 09:01 | Outpatient (BNVA) | payer OTHER, SELFPAY | PROVIDERS: PCP Registered Nurse Community Health; Visit Provider Internal Medicine | DX: J44.9 Chronic obstructive pulmonary disease, unspecified (principal); F17.210 Nicotine dependence, cigarettes, uncomplicated | CPT/HCPCS: 94010; 99212 ==

== ENCOUNTER 2024-03-05 08:11 | Day surgery (SDC) | payer MEDICARE, SELFPAY ==
[2024-02-22 10:25] VITALS: BP 112/65; PULSE 52; RESP 16; O2SAT 97; BMI 19.4
--- NOTE | 2024-03-04 11:42 | HO.ANESPROP2 ---
Documented by User: Breonna Encarnacion NP 03/04/24 11:43 HPI - Anesthesia Eval Consult details Narrative: 69yo M for Right Hernia Inguinal Reducible with mesh Pulmo optimized PAT 02/22/[address] Ortiz Methadone daily PMFSH Active Problems Active Problems: All Active Problems Personal history of nicotine dependence (Acute) Impingement of both shoulders (Acute) Impingement syndrome of right shoulder (Acute) Chronic periscapular pain (Acute) Right inguinal hernia (Acute) Diverticulosis of colon (Acute) Cancer phobia (Acute) Dyspepsia (Acute) Asthma-COPD overlap syndrome (Acute) Methadone use (Acute) Past Medical History Medical History Methadone use Hepatitis Memory impairment Asthma-COPD overlap syndrome Personal history of nicotine dependence Arthritis Shoulder pain, bilateral Mood disorder Inguinal hernia Dizziness Heartburn Vitamin D deficiency Anxiety Family History Family History Father Cancer Father Cancer Other HTN (hypertension) Family history of problems with anesthesia: No Surgical History Surgical History Hx of hemorrhoidectomy Hx of removal of cyst Hx of colonoscopy History of esophagogastroduodenoscopy (EGD) History of Problems with Anesthesia: No Social History Social History Are you a primary child care center administrator to a significant other at home: No Do you presently have visiting nurse or other home services: No Comment: counts correct Patient Tobacco Use Status: Former Tobacco user Tobacco use type: Cigarette Cigarettes Per Day: 3 Years Smoked: 53 Meds Allergies Allergy/AdvReac Type Severity Reaction Status Date / Time No Known Allergies Allergy Verified 03/05/24 09:00 [No Known Allergies*] Home Medications ?Medication ?Instructions ?Recorded ?Confirmed ?Last Taken ?Type albuterol sulfate 90 mcg/actuation 2 puff inhalation Q6H PRN 07/13/22 02/22/24 Unknown History aerosol inhaler Shortness Of Breath Or Wheezing famotidine 40 mg tablet 40 mg PO DAILY PRN Heartburn 07/13/22 02/22/24 Unknown History ascorbic acid (vitamin C) 500 mg 500 mg PO DAILY 02/22/24 02/22/24 Unknown History tablet (Vitamin C) cyanocobalamin (vitamin B-12) 500 500 mcg PO DAILY 02/22/24 02/22/24 Unknown History mcg tablet (Vitamin B-12) fluticasone 250 mcg-salmeterol 50 1 inh inhalation DAILY asthma/copd 02/22/24 02/22/24 03/05/24 04:00 History mcg/dose blistr powdr for inhalation (Wixela Inhub) methadone 35 mg PO BEDTIME 02/22/24 02/22/24 03/05/24 04:00 History omega 0-gqv-oxt-fish oil 1,000 mg 1 cap PO DAILY 02/22/24 02/22/24 02/27/24 History (120 mg-180 mg) capsule (Fish Oil) Exam Height,Weight and Vital Signs: Height 5 ft 6 in Weight 54.431 kg Last Vital Signs Pulse 52 02/22/24 10:25 Resp 16 02/22/24 10:25 BP 112/65 02/22/24 10:25 Pulse Ox 97 02/22/24 10:25 O2 Del Method Room Air 02/22/24 10:25 Assessment and Plan Assessment Anesthesia Assessment: Chart Reviewed Final Anesthetic Review Family History of Problems with Anesthesia: No History of Problems with Anesthesia: No Documented by User: Chela Orantes MD 03/05/24 12:21 [facility] Active Problems Active Problems: All Active Problems Personal history of nicotine dependence (Acute) Impingement of both shoulders (Acute) Impingement syndrome of right shoulder (Acute) Chronic periscapular pain (Acute) Right inguinal hernia (Acute) Diverticulosis of colon (Acute) Cancer phobia (Acute) Dyspepsia (Acute) Asthma-COPD overlap syndrome (Acute) Methadone use (Acute)- last dose this morning 03/05/24 Smoker- quit 9 months ago Left shoulder pain from arthritis Past Medical History Medical History Methadone use Hepatitis Memory impairment Asthma-COPD overlap syndrome Personal history of nicotine dependence Arthritis Shoulder pain, bilateral Mood disorder Inguinal hernia Dizziness Heartburn Vitamin D deficiency Anxiety Family History Family History Father Cancer Father Cancer Other HTN (hypertension) Family history of problems with anesthesia: No Surgical History Surgical History Hx of hemorrhoidectomy Hx of removal of cyst Hx of colonoscopy History of esophagogastroduodenoscopy (EGD) History of Problems with Anesthesia: No Social History Social History Are you a primary child care center administrator to a significant other at home: No Do you presently have visiting nurse or other home services: No Comment: counts correct Patient Tobacco Use Status: Former Tobacco user Tobacco use type: Cigarette Cigarettes Per Day: 3 Years Smoked: 53 Meds Allergies Allergy/AdvReac Type Severity Reaction Status Date / Time No Known Allergies Allergy Verified 03/05/24 09:00 [No Known Allergies*] Home Medications ?Medication ?Instructions ?Recorded ?Confirmed ?Last Taken ?Type albuterol sulfate 90 mcg/actuation 2 puff inhalation Q6H PRN 07/13/22 02/22/24 Unknown History aerosol inhaler Shortness Of Breath Or Wheezing famotidine 40 mg tablet 40 mg PO DAILY PRN Heartburn 07/13/22 02/22/24 Unknown History ascorbic acid (vitamin C) 500 mg 500 mg PO DAILY 02/22/24 02/22/24 Unknown History tablet (Vitamin C) cyanocobalamin (vitamin B-12) 500 500 mcg PO DAILY 02/22/24 02/22/24 Unknown History mcg tablet (Vitamin B-12) fluticasone 250 mcg-salmeterol 50 1 inh inhalation DAILY asthma/copd 02/22/24 02/22/24 03/05/24 04:00 History mcg/dose blistr powdr for inhalation (Wixela Inhub) methadone 35 mg PO BEDTIME 02/22/24 02/22/24 03/05/24 04:00 History omega 8-wxn-mud-fish oil 1,000 mg 1 cap PO DAILY 02/22/24 02/22/24 02/27/24 History (120 mg-180 mg) capsule (Fish Oil) Exam Height,Weight and Vital Signs: Height 5 ft 6 in Weight 54.431 kg Last Vital Signs Pulse 52 02/22/24 10:25 Resp 16 02/22/24 10:25 BP 112/65 02/22/24 10:25 Pulse Ox 97 02/22/24 10:25 O2 Del Method Room Air 02/22/24 10:25 Vital Signs Temp Pulse Resp BP Pulse Ox O2 Del Method 03/05/24 09:08 97.7 F 48 L 15 105/60 99 Room Air Airway Mallampati Class: II TM Dist: >3cm Neck ROM: Full Denture: Upper Loose/Missing/Broken Teeth: Yes (Full denture top. No teeth bottom) Heart: RRR Lungs: CTAB Assessment and Plan Assessment Anesthesia Assessment: Anesthesia Plan Discussed and Chart Reviewed Final Anesthetic Review Family History of Problems with Anesthesia: No History of Problems with Anesthesia: No NPO: Yes ASA Class: III Final Preanesthetic Review: No Changes in Pt Med Stat, Meds/Allgs Chart Reviewed, Consent Obtained/Reviewed and Anes Risks/Benef Reviewed Patient Risk: Intermediate Procedure Risk: Low Assessment/Block/Sedation in SS: Assess/Block/Sedation-SS Anesthetic Plan Anesthetic Plan: GA Disposition: Standard PACU
[2024-03-05 09:08] VITALS: BP 105/60; PULSE 48; RESP 15; TEMP 36.5; O2SAT 99
[2024-03-05 09:27] VITALS: BMI 19.0
[2024-03-05] MEDS: Lactated Ringers 1,000 ML 100 ML IVCONT (09:53)
--- NOTE | 2024-03-05 11:08 | MHC.SHP ---
Pre-Procedural Eval Section A - 24 Hr Update-Section A only Date of Service: 03/05/24 The patient is an INPATIENT: No Changes since office visit: No Cold of Flu in the past 2 weeks, No New Medical Problems, No Changes in Medication and No Patient answered all questions The patient has been examined within 24 hours of the surgical procedure. The History & Physical has been completed within 30 days and I have reviewed it.: Yes Section B - Complete if H&P > 30 days Chief Complaint: Unilateral inguinal hernia, without obstruction Allergies: Allergies Allergy/AdvReac Type Severity Reaction Status Date / Time No Known Allergies Allergy Verified 03/05/24 09:00 [No Known Allergies*] Plan I have reviewed the history and physical and performed a pertinent physical examination on my patient. No changes have occurred unless specified. Time Spent With Patient Time: Total time managing care of this patient today ____ minutes.
--- NOTE | 2024-03-05 12:19 | W.PM.OPN ---
Operative Note Operative Note Date of Service: 03/05/24 Narrative: Preop Diagnosis: Right inguinal hernia, reducible Postop diagnosis: Right inguinal hernia, reducible, direct Procedure: Repair of a right inguinal hernia with mesh and plug Surgeon: Asim Delcid MD occupational therapist's assistant: FRANCO Acharya The patient is a 69-year-old male with a reducible mass on the right groin consistent with a right inguinal hernia. He understood the technique of repair with mesh and was aware of the risks, benefits, and alternatives He was brought to the operating room and placed supine under general anesthesia via laryngeal mask airway. The right groin was prepped and draped in the usual sterile fashion. A surgical time-out was done. The patient received cefazolin 2 g IV preoperatively I infiltrated the planned line of incision with lidocaine 1%. I made a short incision on the skin along an imaginary line from the anterior superior iliac spine to the pubic ramus using blade 15. This was carried down with electrocautery through the full-thickness of the skin and subcutaneous fat down to the fascia. The external oblique aponeurosis was visualized and was dissected to expose the external ring. I then made an incision on the external oblique aponeurosis to enter the inguinal canal. I applied hemostats on the divided edges of the aponeurosis. I did blunt dissection of the underside of the aponeurosis to create space for the mesh. I then did blunt dissection of the spermatic cord and its contents with my index finger until was able to pass a Fleming drain around this. The Vince drain was used for retraction. I identified vas deferens and the accompanying vessels. These were protected during the dissection. A hernia sac was seen adjacent to this and we this from the rest of the cord contents. This turned out to be a direct hernia on the floor of the canal. I gently dissected down to the floor. I used a large size Prolene plug this was positioned to reinforced the hernia. The plug was secured with Prolene 2 sutures to the shelving edge of the inguinal meant laterally in the internal oblique superiorly medially using the inner leaves of the plug I then reinforced the entire floor with a keyhole mesh. The tails of the mesh were passed around the cord at the level of the internal ring and were secured together with Prolene 2 sutures. I flattened the mesh. The mesh was secured to the pubic ramus inferomedially, the shelving edge of the inguinal ligament laterally as well as the internal oblique medially using Prolene 2 sutures. I then irrigated. Hemostasis was confirmed. I then reapposed the external oblique aponeurosis with Polysorb 2-0 sutures to re-create the external ring The subcutaneous layer was reapposed with Polysorb 3-0 sutures. Skin closure was achieved with Polysorb 4-0 subcuticular running stitch The area was infiltrated with Marcaine 0.5% for postop analgesia and the procedure was completed The patient tolerated the procedure well. There were no immediate complications. Initial and final counts of sponges and instruments were correct. Estimated blood loss was about 10 cc. The patient was extubated without difficulty and transferred to the recovery room with stable vital signs.
[2024-03-05 12:44] VITALS: BP 109/64; PULSE 75; RESP 16; TEMP 36.4; O2SAT 98
[2024-03-05 12:49] VITALS: BP 114/64; BP 117/66; PULSE 67; PULSE 77; RESP 16; O2SAT 97; O2SAT 98
[2024-03-05 12:54] VITALS: BP 126/60; PULSE 83; RESP 16; O2SAT 97
[2024-03-05 13:09] VITALS: BP 111/69; PULSE 81; RESP 16; TEMP 36.4; O2SAT 97
== END 2024-03-05 13:33 | disposition home or self-care (01) ==
PROVIDERS: PCP Family Medicine; Visit Provider Surgery
PROC: (CPT 49505; principal; 2024-03-05 11:20)
DX: K40.90 Unilateral inguinal hernia, without obstruction or gangrene, not specified as recurrent (principal); J45.909 Unspecified asthma, uncomplicated; J44.9 Chronic obstructive pulmonary disease, unspecified; F11.90 Opioid use, unspecified, uncomplicated; Z79.51 Long term (current) use of inhaled steroids; Z79.899 Other long term (current) drug therapy; Z87.891 Personal history of nicotine dependence
CPT/HCPCS: 49505; C1781; J0131; J0690; J1100; J1596; J2250; J2371; J2405; J2704; J2795; J3010

== ENCOUNTER → 2024-03-05 08:11 | Outpatient (BNV) | payer MEDICARE, SELFPAY | PROVIDERS: PCP Family Medicine; Visit Provider Surgery | DX: K40.90 Unilateral inguinal hernia, without obstruction or gangrene, not specified as recurrent (principal) | CPT/HCPCS: 49505 ==

== ENCOUNTER 2024-03-14 10:44 | Outpatient (AMB) | payer OTHER, SELFPAY ==
--- NOTE | 2024-03-14 10:47 | A.OFFVIS_ITS ---
Vital Signs 03/14/24 10:52 Height 5 ft 6 in Weight 120 lb BMI 19.4 Intake Visit Reasons: S/P RIH w/mesh Intake Note: This patient presents for post-op assessment status post right inguinal hernia repair with mesh. Pt c/o; reports no complains pertaining to surgery. 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 He tolerated procedure well. He currently denies significant complaints. He says that he had returned to work 5 days postoperatively. 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 [facility] Medical History Methadone use Hepatitis Memory impairment Asthma-COPD overlap syndrome Personal history of nicotine dependence Arthritis Shoulder pain, bilateral Mood disorder Inguinal hernia Dizziness Heartburn Vitamin D deficiency Anxiety Surgical History History of right inguinal hernia repair (~03/05/24) Hx of hemorrhoidectomy Hx of removal of cyst Hx of colonoscopy History of esophagogastroduodenoscopy (EGD) Family History Father Cancer Father Cancer Other HTN (hypertension) Social History Are you a primary skin care therapist to a significant other at home: No Do you presently have visiting nurse or other home services: No Comment: counts correct Patient Tobacco Use Status: Former Tobacco user Tobacco use type: Cigarette Cigarettes Per Day: 3 Years Smoked: 53 Review of Systems Const Denies chills and Denies fever(s) Card Denies chest pain, Denies dyspnea and Denies dyspnea on exertion Resp Denies cough, Denies dyspnea and Denies dyspnea on exertion GI Denies hematochezia and Denies change in bowel habits Denies hematuria and Denies difficulty urinating Musc Denies back pain and Denies limited range of motion Neuro Denies focal weakness and Denies convulsions Psych Denies depression and Denies mood swings Physical Exam Const Other: Looks well General: comfortable and no acute distress Resp Effort & Inspection: normal respiratory effort GI Other: Right inguinal hernia repair site is healing well, repair intact, not infected Palpation (GI): Soft to palpation, not firm, nontender and no guarding Assessment & Plan Assessment & Plan (1) Right inguinal hernia: Code(s): K40.90 - Unilateral inguinal hernia, without obstruction or gangrene, not specified as recurrent Category: Medical Plan: Status post repair with mesh. He is doing well postoperatively. The repair s ite appears intact. I advised him to avoid lifting anything more than 20 lb for at least 3 more weeks. He can otherwise follow up on a p.r.n. basis. I emphasized to him that he should take it easy at work as he said he returned to work 5 days after the procedure already. Coding Level of Care Code Global (83068) Diagnoses Right inguinal hernia K40.90
[2024-03-14 10:52] VITALS: BMI 19.4
== END 2024-03-14 10:56 | disposition home or self-care (01) ==
PROVIDERS: PCP Family Medicine; Visit Provider Surgery
DX: K40.90 Unilateral inguinal hernia, without obstruction or gangrene, not specified as recurrent (principal)
CPT/HCPCS: 99024

== ENCOUNTER → 2024-03-14 10:44 | Outpatient (BNVA) | payer OTHER, SELFPAY | PROVIDERS: PCP Registered Nurse Community Health; Visit Provider Surgery | DX: Z48.815 Encounter for surgical aftercare following surgery on the digestive system (principal); Z98.890 Other specified postprocedural states | CPT/HCPCS: 99212 ==

== ENCOUNTER 2024-03-21 10:43 | Outpatient (AMB) | payer OTHER, SELFPAY ==
--- NOTE | 2024-03-21 10:59 | MHC.OFFVIS ---
Vital Signs 03/21/24 11:00 Height 5 ft 6 in Weight 120 lb BMI 19.4 BP 102/58 L Blood Pressure Location Lt brachial Position Sitting Pulse 71 Pulse Source Pulse Oximeter Pulse Oximetry (%) 96 Oxygen Delivery Method Room Air Intake Visit Reasons: Asthma/COPD Intake Note: pt is here for follow up and he states his breathing is so/so, his hernia surgery went well. Data Storage Specialist Required: No Allergies No Known Allergies [No Known Allergies*] Allergy (Verified 03/21/24 11:18) Medication List - Last Reconciled 03/21/24 by Braydon Bridges MD albuterol sulfate 90 mcg/actuation 2 puffs inhalation Q6H PRN ascorbic acid (vitamin C) (Vitamin C) 500 mg PO DAILY cyanocobalamin (vitamin B-12) (Vitamin B-12) 500 mcg PO DAILY famotidine 40 mg PO DAILY PRN fluticasone propion-salmeterol 250-50 mcg/dose (Wixela Inhub) 1 inh inhalation DAILY ibuprofen 600 mg PO Q6H PRN [methadone 35 mg PO BEDTIME] omega 3-mwc-fic-fish oil 1,000 mg (120 mg-180 mg) (Fish Oil) 1 cap PO DAILY vitamin E (dl, acetate) 45 mg PO DAILY Do you need a note to return to daycare/school/sports/work: No HPI HPI Asthma/COPD: Details: 67 years old gentleman with history of bronchial asthma and smoking, is here for follow-up. He underwent his surgery ( herniorrhaphy) uneventfully. Since after his surgery he is not smoking at all. His breathing is very stable. Using Wixela 250-50 twice a day but in fact he is now using it only once a day and remains asymptomatic. He is hardly needing to use albuterol . [facility], [facility] Medical History Methadone use Hepatitis Memory impairment Asthma-COPD overlap syndrome Personal history of nicotine dependence Arthritis Shoulder pain, bilateral Mood disorder Inguinal hernia Dizziness Heartburn Vitamin D deficiency Anxiety Surgical History History of right inguinal hernia repair (~03/05/24) Hx of hemorrhoidectomy Hx of removal of cyst Hx of colonoscopy History of esophagogastroduodenoscopy (EGD) Family History Father Cancer Father Cancer Other HTN (hypertension) Social History Are you a primary animal daycare provider to a significant other at home: No Do you presently have visiting nurse or other home services: No Comment: counts correct Patient Tobacco Use Status: Former Tobacco user Tobacco use type: Cigarette Cigarettes Per Day: 3 Years Smoked: 53 Review of Systems Const All systems reviewed & are unremarkable except as noted in HPI and below Eyes Reports no additional complaints ENT Reports no additional complaints Card Denies chest pain, Denies irregular heart rhythm and Reports dyspnea on exertion (mild) Resp Reports as per HPI and Reports dyspnea on exertion (mild) GI Reports dyspepsia and Reports heartburn (Controlled with med) Reports no additional complaints Musc Reports back pain and Reports myalgias Skin/Breast Reports system reviewed and no additional complaints, except as documented Neuro Reports no additional complaints Psych Reports anxiety Endo Reports no additional complaints Tarun/Lymph Reports no additional complaints Aller/Immun Reports no additional complaints Physical Exam Vital Signs: Last Vital Signs Pulse 71 03/21/24 11:00 BP 102/58 L 03/21/24 11:00 Pulse Ox 96 03/21/24 11:00 Oxygen Delivery Method Room Air 03/21/24 11:00 BMI result Body Mass Index 19.4 Const Other: He is of a thin build, otherwise healthy looking General: comfortable, no acute distress, alert and awake Orientation/consciousness: patient oriented x3 HEENT Head: Yes normal to inspection General nose exam: No nasal polyps present and No nasal discharge present Face and sinus: Yes sinuses nontender Mouth: oropharynx normal Throat: Yes posterior oropharynx normal Eyes General: appearance normal, both eyes and all related structures Neck Neck: Yes normal visual inspection, Yes no lymphadenopathy, Yes trachea midline and Yes no JVD Thyroid: Thyroid normal Chest Chest palpation & inspection: normal inspection of the chest, normal palpation of entire chest wall and no tenderness Resp Other: Percussion note hyper-resonant, Breath sounds are moderately distant with Prolonged expiratory phase NO WHEEZES OR CREPITATIONS ARE HEARD TODAY. Cardio Palpation: normal PMI Rate: regular rate Rhythm: regular rhythm Heart sounds: no gallops and no murmurs Peripheral pulses: Peripheral pulses 2+ throughout GI Palpation (GI): Soft to palpation, nontender, No hepatosplenomegaly present and no masses Auscultation: normal bowel sounds Back/Spine/Pelvis Thoracic/Lumbar Spine: thoracic and lumbar spine normal to inspection Skin General skin exam: no rashes or lesions noted Neuro General: patient oriented x3 and no focal motor deficits Cranial nerves: Yes CN's II-XII intact bilaterally Extrem General: Yes normal to inspection, Yes no clubbing, cyanosis or edema and Yes no calf tenderness Psych Appearance: grossly normal and well kempt Speech and movement: Normal speech and movement present Assessment & Plan Assessment & Plan (1) Asthma-COPD overlap syndrome: Comment: THIS GENTLEMAN HAS BEEN TREATED FOR ASTHMA/COPD OVERLAP SYNDROME WITH ICS/LABA COMBINATION AND HAS DONE VERY WELL CURRENTLY HE IS ON WIXELA 250-50 1 INHALATION B.I.D.. HE TELLS ME THAT HE IS USING IT ONLY ONCE A DAY MOST OF THE TIMES. HE HARDLY NEEDS TO USE ALBUTEROL HFA. HIS PHYSICAL CAPACITY IS GOOD HE WORKS WHOLE DAY WITHOUT SHORTNESS OF BREATH. Code(s): J44.9 - Chronic obstructive pulmonary disease, unspecified Category: Medical Plan: ADVISED TO USE WIXELA 250-50 ONCE A DAY BUT INCREASE TO B.I.D. IF STARTS HAVING ANY COUGH OR WHEEZING. I EXPLAINED TO HIM THE IMPORTANCE OF NOT SMOKING . BECAUSE IT IS THE SMOKING OFF CIGARETTES WHICH WILL CAUSE COUGH. HE UNDERSTANDS WELL. Coding Level of Care Code Est Pt Level 3 (22125) Diagnoses Asthma-COPD overlap syndrome J44.9
[2024-03-21 11:00] VITALS: BP 102/58; PULSE 71; O2SAT 96; BMI 19.4
== END 2024-03-21 11:18 | disposition home or self-care (01) ==
LOC: HO.HPS 10:43
PROVIDERS: PCP Family Medicine; Visit Provider Internal Medicine
DX: J44.9 Chronic obstructive pulmonary disease, unspecified (principal)
CPT/HCPCS: 99213

== ENCOUNTER → 2024-03-21 10:43 | Outpatient (BNVA) | payer OTHER, SELFPAY | PROVIDERS: PCP Family Medicine; Visit Provider Internal Medicine | DX: J44.9 Chronic obstructive pulmonary disease, unspecified (principal) | CPT/HCPCS: 99212 ==

== ENCOUNTER 2024-04-22 11:16 | Outpatient (REF) | payer MEDICARE, SELFPAY ==
[2024-04-22 13:26] LABS: MANUAL DIFF FLAG NO
[2024-04-22 13:35] LABS: Basophils Percent Auto 0.5 % (0-2); Eosinophils Absolute Auto 0.3 X10*3/uL (0.0-0.4); Eosinophils Percent Auto 4.8 % (0-4); Hematocrit 40.9 % (42.0-52.0); Hemoglobin 12.9 g/dl (14.0-18.0); Imm Gran Abs Auto 0.01 X10*3/uL (0.00-0.03); Imm Gran Pct Auto 0.2 % (0.0-0.4); Lymphocytes Absolute Auto 2.1 X10*3/uL (1.2-4.9); Lymphocytes Percent Auto 33.8 % (20-40); Mean Corpuscular HGB Conc 31.5 g/dl (31.0-36.0); Mean Corpuscular Hemoglobin 29.7 pg (27.0-33.0); Mean Platelet Volume 10.4 fL (9.4-12.4); Monocytes Absolute Auto 0.5 X10*3/uL (0.1-1.2); Monocytes Percent Auto 8.5 % (2-11); Neutrophils Absolute Auto 3.2 x10*3/uL (2.0-8.3); Neutrophils Percent Auto 52.2 % (45-73); Platelet Count 235 X10*3/uL (160-400); Red Blood Count 4.35 X10*6/uL (4.60-5.80); White Blood Count 6.1 X10*3/uL (4.8-10.8)
[2024-04-22 14:03] LABS: Alanine Aminotransferase 25 U/L (0-40); Albumin Level 4.4 g/dL (3.5-5.0); Alkaline Phosphatase 82 U/L (39-117); Anion Gap 14 (12-20); Aspartate Amino Transferase 24 U/L (5-37); Bilirubin Total 0.5 mg/dL (0.0-1.0); Blood Urea Nitrogen 23 mg/dL (9-16); Carbon Dioxide 25 mmol/L (22-29); Chloride 106 mmol/L (96-108); Cholesterol 170 mg/dL (<200); Estimated Glomerular Filt Rate > 60; Glucose Random 108 mg/dL (60-115); HDL Cholesterol 95 mg/dL (>40); LDL Cholesterol Calculated 69 mg/dL (<100); Potassium 5.2 mmol/L (3.3-5.1); Sodium 140 mmol/L (135-145); Total Protein 7.7 g/dL (6.5-8.0); Triglycerides 31 mg/dL (<150)
[2024-04-22 14:12] LABS: TSH reflex Free T4 1.15 uIU/mL (0.32-4.0); Vitamin D 25-OH Total 46.1 ng/mL (>30)
[2024-04-22 14:24] LABS: Vitamin B12 953 pg/mL (200-900)
[2024-04-22 14:32] LABS: Reflex LDLD? No
[2024-04-22 14:50] LABS: Folate 11.9 ng/mL (> or = 4.0)
[2024-04-23 04:33] LABS: Hepatitis A Antibody IgG REACTIVE (Nonreactive); ~Hepatitis A Antibody IgG 10.36 S/CO (0.00-0.99)
[2024-04-23 04:50] LABS: HBS Num1 0.37 mIU/mL (0-7.99); HBc Num1 0.17 S/CO (0.00-0.79); HBsAGNum1 0.58 S/CO (0.00-0.99); HIV AB/AG Nonreactive (Nonreactive); HIV Num 1 0.07 S/CO (0.00-0.99); Hepatitis B Core Antibody Nonreactive (Nonreactive); Hepatitis B Surface Antigen Negative (Negative); ~HepC Num1 0.12 S/CO (0.00-0.79); ~Hepatitis B Surface Antibody NONREACTIVE (Nonreactive); ~Hepatitis C Antibody Nonreactive (Nonreactive)
== END 2024-04-22 11:17 | disposition home or self-care (01) ==
LOC: HO.HHCL 11:16
PROVIDERS: Visit Provider Family Medicine
DX: R41.3 Other amnesia (principal); E55.9 Vitamin D deficiency, unspecified; Z11.3 Encounter for screening for infections with a predominantly sexual mode of transmission; Z13.220 Encounter for screening for lipoid disorders
CPT/HCPCS: 36415; 80053; 80061; 82306; 82607; 82746; 84443; 85025; 86704; 86706; 86708; 86803; 87340; 87389

== ENCOUNTER 2024-05-03 08:28 | Outpatient (REF) | payer MEDICARE, SELFPAY ==
[2024-05-03 12:18] LABS: Immature Retic Fraction 9.8 % (2.3-13.4); Reticulocyte Percent 0.9 % (0.5-1.8); Reticulocytes Absolute 0.043 X10*6/uL (0.026-0.095)
[2024-05-03 12:46] LABS: Anion Gap 11 (12-20); Blood Urea Nitrogen 21 mg/dL (9-16); Calcium 9.9 mg/dL (8.4-10.2); Carbon Dioxide 29 mmol/L (22-29); Chloride 105 mmol/L (96-108); Estimated Glomerular Filt Rate > 60; Glucose Random 94 mg/dL (60-115); Iron 67 mcg/dL (45-160); Percent Iron Saturation 23 % (15-50); Potassium 5.2 mmol/L (3.3-5.1); Sodium 140 mmol/L (135-145); Total Iron Binding Capacity 286 mcg/dL (228-428); Unsaturated Iron Binding 219 ug/dL
[2024-05-03 13:02] LABS: Ferritin 103 ng/mL (20-250)
[2024-05-03 13:20] LABS: Estimated Average Glucose 114 mg/dL; Hemoglobin A1C 127.4355 umol/L; Hemoglobin A1c % 5.6 % (<6.0); Total Hemoglobin (HGBA1C) 3417.0538 umol/L
== END 2024-05-03 08:29 | disposition home or self-care (01) ==
LOC: HO.HHCL 08:28
PROVIDERS: Visit Provider Family Medicine
DX: E87.5 Hyperkalemia (principal); R73.9 Hyperglycemia, unspecified; D64.9 Anemia, unspecified
CPT/HCPCS: 36415; 80048; 82728; 83036; 83540; 85045

== ENCOUNTER 2024-05-29 07:21 | Outpatient (REF) | payer MEDICARE, SELFPAY | END 2024-05-29 07:22 | disposition home or self-care (01) | LOC: HO.MRI 07:21 | PROVIDERS: PCP Family Medicine; Visit Provider Family Medicine | DX: Z13.89 Encounter for screening for other disorder (principal) ==

== ENCOUNTER 2024-07-11 10:42 | Outpatient (REF) | payer MEDICARE, SELFPAY ==
[2024-07-11 13:30] LABS: Anion Gap 11 (12-20); Blood Urea Nitrogen 19 mg/dL (9-16); Calcium 9.2 mg/dL (8.4-10.2); Carbon Dioxide 29 mmol/L (22-29); Chloride 106 mmol/L (96-108); Estimated Glomerular Filt Rate > 60; Glucose Random 80 mg/dL (60-115); Potassium 4.7 mmol/L (3.3-5.1); Sodium 141 mmol/L (135-145)
== END 2024-07-11 10:43 | disposition home or self-care (01) ==
LOC: HO.HHCL 10:42
PROVIDERS: Visit Provider Family Medicine
DX: E87.5 Hyperkalemia (principal)
CPT/HCPCS: 36415; 80048

== ENCOUNTER 2024-09-13 10:07 | Outpatient (AMB) | payer MEDICARE, SELFPAY ==
--- NOTE | 2024-09-13 10:48 | MHC.OFFVIS ---
Intake Visit Reasons: INJ-Bilat shoulder cortisone injection Intake Note: Leon is a 69 year old left hand dominant male who presents today for a follow up of his bilateral shoulder impingement/burisitis. Injections were administered to bilateral shoulders on 02/16/24.He would like both of his shoulder injected today and reports that he would like to discuss surgery Allergies No Known Allergies [No Known Allergies*] Allergy (Verified 03/21/24 11:18) HPI HPI INJ-Bilat shoulder cortisone injection: Details: 69-year-old gentleman with bilateral shoulder pain. His left is worse than his right. His right shoulder he has pretty good motion. Left shoulder he has pain with overhead activity. [facility] Medical History (Updated 09/16/24 @ 10:34 by Anup Graham MD) Methadone use Hepatitis Memory impairment Asthma-COPD overlap syndrome Personal history of nicotine dependence Arthritis Shoulder pain, bilateral Mood disorder Inguinal hernia Dizziness Heartburn Vitamin D deficiency Anxiety Surgical History History of right inguinal hernia repair (~03/05/24) Hx of hemorrhoidectomy Hx of removal of cyst Hx of colonoscopy History of esophagogastroduodenoscopy (EGD) Family History Father Cancer Father Cancer Other HTN (hypertension) Social History Are you a primary home visit field care manager to a significant other at home: No Do you presently have visiting nurse or other home services: No Comment: counts correct Patient Tobacco Use Status: Former Tobacco user Tobacco use type: Cigarette Cigarettes Per Day: 3 Years Smoked: 53 Physical Exam Extrem Other: Right shoulder with a negative empty can in mildly positive Fletcher and Neer. Left shoulder with 4- out of 5 empty can. Positive Fletcher and Neer. External rotation at 30 degrees bilaterally. Office Procedures Joint Inj/Aspir; Non-Pain Clin Joint Injection/Drain Details: Injected 1 mL of Decadron and 3 mL 1% lidocaine and 3 mL of 0.25% Marcaine. Site was prepped using aseptic technique. Patient tolerated the procedure well. Shoulders, Hips, Knees, Shoulder Injection Large joint 45829: Bilateral Shoulders Coding Procedure code (CPT) selection complete Assessment & Plan Assessment & Plan (1) Internal derangement of shoulder: Code(s): M24.819 - Other specific joint derangements of unspecified shoulder, not elsewhere classified Category: Medical Plan: 69-year-old gentleman with intermittent bilateral shoulder pain. Today the left is greater than the right. Does have some evidence of potential rotator cuff arthropathy on the left. He is not a good surgical candidate. I injected bilateral shoulders. He may follow up as needed. Coding Level of Care Code Est Pt Level 3 (16138) Diagnoses Internal derangement of shoulder M24.819 CPT Codes Shoulders, Hips, Knees, - Shoulder Injection Large joint 00376: Bilateral Shoulders ([id number])
--- OUTSIDE RECORDS SUMMARY | 2024-09-13 11:14 | XMS_ITS | Encounter Summary ---
Author Organization [employer] Address [address] [facility] [address] [place] [address] Care Team Providers Care Inspector Missile Name Role Phone Pauly Sánchez MD Primary Care Provider [phone] Reason for Visit * Reason Comments Pre-visit Planning Pre-visit planning - LVM Encounter Details Date Type Department Care Team ([facility] Contact Info) Description 08/22/2024 Patient Outreach [facility] [address] [place] [address] Pauly Sánchez MD [address] [place] [address] Pre-visit Planning (Pre-visit planning - LVM ) Social History Tobacco Use Types Packs/Day Years Used Date Smoking Tobacco: Some Days Cigarettes 0.3 54 Passive Smoke Exposure: Current Smokeless Tobacco: Never Alcohol Use Standard Drinks/Week Comments Never 0 (1 standard drink = 0.6 oz pur e alcohol) Depression Answer Date Recorded Patient Health Questionnaire-9 Score 0 01/16/2024 Patient Health Questionnaire-9 Score 0 01/16/2024 Last PHQ-9: Questionnaire Data Not on file 0 01/16/2024 Housing Stability Answer Date Recorded What is your housing situation today? I have emilee saldana 01/16/[address] you li ve. Do you have problems with any of the following? None of the above 01/16/2024 Food Insecurity Answer Date Recorded Within the past 12 months, y ou worried that your food would run out before you got money to buy more: Never True 01/16/2024 Within the past 12 months,th e food you bought just didn't last and you didn't have enough money to get more: Never True 08/2023 Transportation Answer Date Recorded In the past 12 months, has l ack of transportation kept you from medical appts, meetings, work or from getting things needed for daily living? No 01/16/2024 Utilities Answer Date Recorded In the past 12 months, has t he electric, gas, oil or water company threatened to shut off services in your home? No 01/16/2024 Depression Answer Date Recorded Patient Health Questionnaire-2 Score 0 01/16/2024 Internet Access Answer Date Recorded Internet Access Q1 Yes 03/15/2024 Internet Access Q2 Not on file 03/15/2024 Sex and Gender Information Value Date Recorded Sex Assigned at Male 05/16/2022 10:38 AM EDT Legal Sex Male 10:38 AM EDT Gender Identity Male 05/16/2022 10:38 AM EDT Sexual Orientation Don't know 04/16/2024 9: 43 AM EDT Sexual Orientation Straight 04/16/2024 9: 43 AM EDT documented as of this encounter Progress Notes * Celestina Samson - 08/22/2024 11:37 AM EST GENESIS Lerbon placed outbound call to patient to complete pre-visit planning. No answer at this time. Patient name and were not confirmed. CC left voicemail requesting return call. Direct contact information provided. documented in this encounter Plan of Treatment Not on file documented as of this encounter Visit Diagnoses Not on filedocumented in this encounter Additional Health Concerns Assessment Noted Time PHQ-9 Depression Total Score: 0 01/16/20 9:53 AM EDT documented as of this encounter Care Teams Inspector Missile Relationship Specialty Start Date End Date Pauly Sánchez MD [address] [place] [id number] PCP - General Family Medicine 01/08/24 documented as of this encounter
--- OUTSIDE RECORDS SUMMARY | 2024-09-13 11:14 | XMS_ITS | Encounter Summary ---
Author Organization [employer] Address [address] [facility] 7t [place] [address] Care Team Providers Care Link Cutter Name Role Phone Pauly Sánchez MD Primary Care Provider [phone] Encounter Details Date Type Department Care Team ([facility] st Contact Info) Description 08/29/2024 Telephone [facility] [address] [place] [address] Pauly Sánchez MD [address] [place] [address] Social History Tobacco Use Types Packs/Day Years [...] AM EDT documented as of this encounter Miscellaneous Notes * Telephone Encounter - Robert Morrow - 08/29/2024 2:38 PM EST FYI to PCP - patient discharged from [facility] - Smoking Cessation effective today. Patient has had >3 consecutive canceled/no showed pharmacy visits and thus will be removed from the outreach list per existing workflow. If, upon further discussion, you feel patient would benefit from pharmacy services please issue a new referral to re-enroll. Thank you. documented in this encounter Plan of Treatment Not on file documented as of this encounter Visit Diagnoses Not on filedocumented in this encounter Additional Health Concerns Assessment Noted Time PHQ-9 Depression Total Score: 0 01/16/20 9:53 AM EDT documented as of this encounter Care Teams Link Cutter Relationship Specialty Start Date End Date Pauly Sánchez MD [address] [place] [address] PCP - General Family Medicine 01/08/24 documented as of this encounter
--- OUTSIDE RECORDS SUMMARY | 2024-09-13 11:14 | XMS_ITS | Encounter Summary ---
Author Organization [employer] Address [address] [facility] 7t [place] [address] Care Team Providers Care Plastic Mould Maker Name Role Phone Pauly Sánchez MD Primary Care Provider [phone] Reason for Visit * Reason Onset Date Comments FMLA 08/29/2024 I called the pat ient, regarding an application for FMLA. He stated that he has not seen the medicaid billing specialist yet, because his appointment is not until 09/13/24 at 10:15. I reminded him of his PCP appointment on 09/09/24 at 10:00. He stated that he needs to have the form completed eugene, because he has been out of work due to shoulder pain, and has not been getting paid. He informed me that he is not getting any relief, from the pain medication that he was prescribed, and would like to know if he co Encounter Details Date Type Department Care Team ([facility] Contact Info) Description 08/29/2024 Telephone [facility] [address] [place], [place] [phone] Pauly Sánchez MD [address] [place], [place] [phone] FMLA (I called the patient, regarding an application for FMLA. He stated that he has not seen the medicaid billing specialist yet, because his appointment is not until 09/13/24 at 10:15. I reminded him of his PCP appointment on 09/09/24 at 10:00. He stated that he needs to have the form completed eugene, because he has been out of work due to shoulder pain, and has not been getting paid. He informed me that he is not getting any relief, from the pain medication that he was prescribed, and would like to know if he co) Social History Tobacco Use Types Packs/Day Years [...] encounter Miscellaneous Notes * Telephone Encounter - Dolores Dupont RN - 08/30/2024 3:47 PM EST Returned phone call to pt to advise of below message from PCP. Advised pt to contact methadone clinic, pt stated he did and they increased his dose by 10mg. Advised him to let methadone provider knowif the pain is still intense. Pt verbalized understanding, said it's okay, I just want to know if they are going to do surgery or what. Advised again to call ortho office back and ask to be on cancellation list. Advised of NTTS allergist/pediatric pulmonologist nurse. Pt verbalized understanding, no further questions. * Telephone Encounter - Dolores Dupont RN - 08/30/2024 10:57 AM EST Telephone call to pt using [facility] interpreter translator Sonido #[id number]. Throughout call, pt did not allow for science interpreter to science interpreter. At end of call, science interpreter hung up early. Called pt back, no answer. During call, pt reports continued left shoulder pain due to torn rotator cuff 02/23. He confirmed heis taking the tylenol with codeine 3x daily but it isn't helping , states the pain is so bad laying down. Advised pt that this medication is only meant to be taken 2x daily however he reported again the pain is bad. He denies taking other pain meds except reports is on methadone. Advised him to call [facility] Orthopedics office daily and ask about cancellations for earlier appt. Advised him message would be sent to PCP in interim to advise on pain management. At this point, science interpreter hung up andpt hung up and did not answer return call. * Telephone Encounter - Sienna Farah MA - 08/29/2024 2:34 PM EST I called the patient, regarding an application for FMLA. He stated that he has not seen the medicaid billing specialist yet, because his appointment is not until 09/13/24 at 10:15. I reminded him of his PCPappointment on 09/09/24 at 10:00. He stated that he needs to have the form completed eugene, because he has been out of work due to shoulder pain, and has not been getting paid. He informed me that he is not getting any relief, from the pain medication that he was prescribed, and would like to know ifhe could be prescribed a different medication. A message will be sent to the Green Team nurses, asking them to contact him regarding meds. He verbalized understanding. documented in this encounter Plan of Treatment Not on file documented as of this encounter Visit Diagnoses Not on filedocumented in this encounter Additional Health Concerns Assessment Noted Time PHQ-9 Depression Total Score: 0 01/16/20 24 9:53 AM EDT documented as of this encounter Care Teams Plastic Mould Maker Relationship Specialty Start Date End Date Pauly Sánchez MD [address] [place] [address] PCP - General Family Medicine 01/08/24 documented as of this encounter
--- OUTSIDE RECORDS SUMMARY | 2024-09-13 11:14 | XMS_ITS | Encounter Summary ---
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 Pauly Sánchez MD [address] [place] [phone] Phone: tel: fax: [facility] Orthopedics [address] [place] [address] Phone: tel: Referral ID Status Reason Start Date Expiration Date Visits Requested Visits Authorized [id number] Authorized Specialty Services Required 08/22/2024 08/22/2025 1 1 Reason for Visit * Reason Onset Date Comments Results 08/22/2024 Encounter Details Date Type Department Care Team ([facility] st Contact Info) Description 08/22/2024 Telephone [facility] [address] [place] [address] Pauly Sánchez MD [address] [place], [place] [phone] Results Social History Tobacco Use Types Packs/Day Years [...] encounter Miscellaneous Notes * Telephone Encounter - Yomaira Day RN - 08/23/2024 11:11 AM EST TC placed to pt with BLS safety instructor Cat #[id number] to inform that PCP reviewed latest MRI results which showed a rotator cuff tendon tear. Pt will be referred to a orthopaedic specialist to go over all treatment options and next steps going forward. Pt states that he is agreeable to having a refillon the prescribed Acetaminophen-Codeine (Tylenol w/Codeine #3). Will forward this message to PCP for refill * Telephone Encounter - Pauly Sánchez MD - 08/22/2024 4:29 PM EST Informed of abnormal MRI report by our nurse. Patient has been hesitant to proceed to the surgery because he is concerned about his recovery time. MRI done at [facility] on 08/16/24 showed rotator cuff tear of left shoulder. Will refer to orthopedist. 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
--- OUTSIDE RECORDS SUMMARY | 2024-09-13 11:14 | XMS_ITS | Encounter Summary ---
Author Organization [employer] Address [address] [facility] 7t [place] [address] Care Team Providers Care Dental Sales Representative Name Role Phone Pauly Sánchez MD Primary Care Provider [phone] Reason for Visit * Reason Onset Date Comments chart prep 09/03/2024 Encounter Details Date Type Department Care Team ([facility] st Contact Info) Description 09/03/[address] [facility] [address] [place], [place] [phone] Leigh Bonilla MA chart prep Social History Tobacco Use Types Packs/Day Years [...] encounter Miscellaneous Notes * Telephone Encounter - Leigh Bonilla MA - 09/03/2024 3:46 PM EST ..chart Prep Labs: not applicable Images: not applicable Vaccines due: Hep A Due, RSV in Pharmacy Due, and Shingles in pharmacy Due Referrals: Orthopedics Pending appointment on 09/13/24 Screenings: Not Applicable Overdue care gaps: None documented in this encounter Plan of Treatment Not on file documented as of this encounter Visit Diagnoses Not on filedocumented in this encounter Additional Health Concerns Assessment Noted Time PHQ-9 Depression Total Score: 0 01/16/20 9:53 AM EDT documented as of this encounter Care Teams Dental Sales Representative Relationship Specialty Start Date End Date Pauly Sánchez MD [address] [place] [phone] PCP - General Family Medicine 01/08/24 documented as of this encounter
--- OUTSIDE RECORDS SUMMARY | 2024-09-13 11:14 | XMS_ITS | Clinical Summary ---
Author Organization [employer] Address [address] [place] [address] [address] [place] [address] Care Team Providers Care Select Banker Name Role Phone Josr Sánchez MD Primary Care Provider [phone] Allergies No known active allergies Medications acetaminophen (Tylenol Extra Strength) 500 MG tablet Take 2 tablets (1,000 mg) by mouth every 8 (eight) hours if needed for moderate pain. 180 tablet 1 01/16/20 24 Active Melatonin 3 MG capsule Take 1 capsule by mouth 2 hours prior to your desired bedtime 30 capsule 3 01/16/20 24 Active famotidine (Pepcid) 20 MG tabletIndicati ons:Heartburn Take 1 tablet (20 mg) by mouth if needed in the morning and at bedtime for heartburn. 180 tablet 2 09/09/19 25 Active acetaminophen- codeine (Tylenol w/ Codeine #3) 300-30 MG tabletIndicati ons:Chronic left shoulder pain Take 1 tablet by mouth if needed in the morning and at bedtime for severe pain. 56 tablet 09/09/19 25 Active budesonide-for moterol (Symbicort) 80-4.5 MCG/ACT inhalerIndicat ions:Chronic obstructive pulmonary disease, unspecified COPD type (CMS/HCC) Inhale 2 puffs in the morning and at bedtime. Rinse mouth with water after use to reduce aftertaste and incidence of candidiasis. Do not swallow. 10.2 g 1 09/09/19 25 Active albuterol 108 (90 Base) MCG/ACT inhaler Inhale 2 puffs every 4 (four) hours if needed for wheezing or shortness of breath. Maximum 8 puffs per day 18 g 3 09/09/19 25 026 Active Umeclidinium [place] (Incruse Ellipta) 62.5 MCG/ACT aerosol powder Inhale 1 Act (62.5 mcg) Once per day. 30 Act 09/09/19 25 Active Umeclidinium [place] (Incruse Ellipta) 62.5 MCG/ACT aerosol powder Inhale 1 puff Once per day. 1 each 11 01/16/20 24 025 Discontinued(Re order (will not trigger notification to Pharmacy)) budesonide-for moterol (Symbicort) 80-4.5 MCG/ACT inhalerIndicat ions:Chronic obstructive pulmonary disease, unspecified COPD type (CMS/HCC) Inhale 2 puffs in the morning and at bedtime. Rinse mouth with water after use to reduce aftertaste and incidence of candidiasis. Do not swallow. 10.2 g 1 01/16/20 24 025 Discontinued(Re order (will not trigger notification to Pharmacy)) albuterol 108 (90 Base) MCG/ACT inhaler Inhale 2 puffs every 4 (four) hours if needed for wheezing or shortness of breath. Maximum 8 puffs per day 18 g 3 01/16/20 24 025 Discontinued(Re order (will not trigger notification to Pharmacy)) famotidine (Pepcid) 20 MG tabletIndicati ons:Heartburn Take 1 tablet (20 mg) by mouth if needed in the morning and at bedtime for heartburn. 180 tablet 2 04/22/20 24 025 Discontinued(Re order (will not trigger notification to Pharmacy)) acetaminophen- codeine (Tylenol w/ Codeine #3) 300-30 MG tabletIndicati ons:Chronic left shoulder pain Take 1 tablet by mouth if needed in the morning and at bedtime for severe pain. 56 tablet 07/11/20 24 025 Discontinued(Re order (will not trigger notification to Pharmacy)) acetaminophen- codeine (Tylenol w/ Codeine #3) 300-30 MG tabletIndicati ons:Chronic left shoulder pain Take 1 tablet by mouth if needed in the morning and at bedtime for severe pain. 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 with orthopedist Assessment & Plan (07/11/2024 12:02 PM EST): - Takes Tylenol for the pain but he says it is ineffective Assessment & Plan (04/22/2024 10:59 AM EDT): - left-handed - X-ray on 01/16/24 showed mild glenohumeral and moderate acromioclavicular osteoarthritis. - seen [place] Dr. Graham, [facility] on 02/16/24 - patient has tried maximum dose of APAP which was ineffective. He has tried tramadol. - patient does not want to increase methadone dose - will try T#3 twice daily - will consider evaluating with MRI due to limited range of motion - consider cardiac work-up and GI work-up for referred pain Assessment & Plan (01/16/2024 12:09 PM EDT): - patient was advised to call orthopedist to schedule an appointment - will evaluate with XR today - continue acetaminophen - will consider evaluating with MRI due to limited range of motion Vitamin D deficiency 01/16/2024 Memory impairment 01/16/2024 Assessment & Plan (01/16/2024 12:11 PM EDT): - will order labs - patient states that he was seen by neurologist in the past, will obtain records Generalized abdominal pain 01/16/2024 Assessment & Plan (04/22/2024 10:35 AM EDT): - DDx: gastritis; dyspepsia; +risk factors for cancer - patient has noticed elevated BG - last EGD in November 2021 - underweight - check lab - consider further evaluation with CT or MRCP if patient's BG is elevated Tobacco dependence 01/16/2024 Assessment & Plan (09/09/2024 10:08 AM EST): - Pt smokes occasionally and uses a nicotine patch - given number to reschedule LDCT since pt missed appt. due to work. Assessment & Plan (07/11/2024 12:01 PM EST): - Pt smokes occasionally and uses a nicotine patch Assessment & Plan (04/26/2024 2:41 PM EDT): - given number to reschedule LDCT since pt missed appt. due to work. Assessment & Plan (01/16/2024 12:10 PM EDT): - will order lung cancer screening CT Dizziness 04/04/2023 Assessment & Plan (04/04/2023 6:07 PM EDT): DDx: dehydration, orthostatis hypotension, hypoglycemia, vertigo Glucose WNL Initial BP 120/67 MA obtained orthostatic BP measurements Lying 98/70 Sitting 98/70 Standing 104/72 Educated pt to drink 8 bottles of water/day Measure BP in the morning when he feels dizzy Get up slowly to prevent falls RTC 1-2 weeks if dizziness continues F/u PRN Heartburn 04/04/2023 Overview (04/04/2023): Occasional sx Improved w/ famotidine 20 mg BID Assessment & Plan (09/09/2024 10:27 AM EST): - EGD by Dr. Casas [facility] on 12/03/21. No malignancy or atypical cells. Negative H. pylori - continue famotidine - reduce tobacco use, minimize NSAIDs use Assessment & Plan (07/18/2024 5:32 AM EST): - EGD by Dr. Casas [facility] on 12/03/21. No malignancy or atypical cells. Negative H. Pylori. - continue famotidine, will check H.pylori - reduce tobacco use, minimize NSAIDs use Assessment & Plan (04/22/2024 10:29 AM EDT): - EGD by Dr. Casas [facility] on 12/03/21. No malignancy or atypical cells. Negative H. Pylori. - continue famotidine, will check H.pylori - reduce tobacco use, minimize NSAIDs use Assessment & Plan (01/16/2024 12:08 PM EDT): - continue famotidine, will check H.pylori - reduce tobacco use, minimize NSAIDs use Assessment & Plan (04/04/2023 6:10 PM EDT): Refill Famotidine Avoid triggers: chocolate, spicy, caffeine, ETOH, tobacco use F/u prn Asthma-COPD overlap syndrome 04/04/2023 Assessment & Plan (09/09/2024 10:29 AM EST): - 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 see horse groomer, last seen in JUN 2022, patient was prescribed Symbicort but does not have currently - continue Symbicort and Incruse - continue albuterol PRN - continue working on smoking cessation - advised to reschedule chest CT, given number to call Assessment & Plan (09/08/2024 6:15 PM EST): >>ASSESSMENT AND PLAN FOR CHRONIC OBSTRUCTIVE PULMONARY DISEASE ([facility]) WRITTEN ON 04/04/2023 6:07 PM BY OSMEL BALTAZAR Refill symbicort Care managed by Pulm F/u PRN Assessment & Plan (09/08/2024 6:15 PM EST): >>ASSESSMENT AND PLAN FOR CHRONIC OBSTRUCTIVE PULMONARY DISEASE ([facility]/HCC) WRITTEN ON 01/16/2024 12:06 PM BY BERT DAVIES - 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 see horse groomer, last seen in JUN 2022, patient was prescribed Symbicort but does not have currently - will restart Symbicort and will start incruse - continue albuterol PRN - continue working on smoking cessation - will order lung cancer screening chest CT Assessment & Plan (09/08/2024 6:15 PM EST): >>ASSESSMENT AND PLAN FOR CHRONIC OBSTRUCTIVE PULMONARY DISEASE ([facility]/HCC) WRITTEN ON 04/26/2024 2:40 PM BY VINCE MANCILLA - 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 see horse groomer, last seen in JUN 2022, patient was prescribed Symbicort but does not have currently - continue Symbicort and Incruse - continue albuterol PRN - continue working on smoking cessation - advised to reschedule chest CT, given number to call Assessment & Plan (09/08/2024 6:15 PM EST): >>ASSESSMENT AND PLAN FOR CHRONIC OBSTRUCTIVE PULMONARY DISEASE ([facility]) WRITTEN ON 07/18/2024 5:32 AM BY JOSR SÁNCHEZ MD - 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 see horse groomer, last seen in JUN 2022, patient was prescribed Symbicort but does not have currently - continue Symbicort and Incruse - continue albuterol PRN - continue working on smoking cessation - advised to reschedule chest CT, given number to call Right inguinal hernia 03/23/2023 Assessment & Plan (04/22/2024 10:45 AM EDT): - s/p right inguinal hernia repair by Dr. Delcid on 03/14/24 Assessment & Plan (01/16/2024 12:07 PM EDT): - patient was evaluated by general surgeon in MAR 2022, patient was asymptomatic at that time and agreed to observe symptoms - currently he is having pain and requests a new referral, will make a new referral Strain of rotator cuff of both shoulders 023 Overview (04/04/2023): Bilateral shoulder Xrays showed 1. Mild elevation of the right humeral head which could indicate chronic rotator cuff insufficiency or thickening. 2. Unremarkable plain radiographs of the left shoulder. Pain is continuing in shoulders. Aggravated by cleaning floors by hand Received physical therapy about 8-9 years ago. Assessment & Plan (09/09/2024 10:08 AM EST): Refer to physical therapy and Ortho for further assessment and treatment Continue Lidocaine cream Rx Ibuprofen 800 mg TID PRN. Educated take with food May take at same time of Tylenol or stagger dosing RTC if pain worsens F/u PRN Assessment & Plan (04/04/2023 6:11 PM EDT): Refer to physical therapy and Ortho for further assessment and treatment Continue Lidocaine cream Rx Ibuprofen 800 mg TID PRN. Educated take with food May take at same time of Tylenol or stagger dosing RTC if pain worsens F/u PRN Assessment & Plan (03/23/2023 1:21 PM EDT): Pt primarily hoping for a note for work for a few days until the machine that cleans the floors get fixed. Exam is consistent with rotator sprain and arthritits of the shoulder. Xray ordered. No time for PT at the moment, has a partner that can massage the area. Trial of lidocaine cream and tylenol ordered. If no improvement will consider ortho referral. 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 Assessment & Plan (09/09/2024 10:08 AM EST): - patient is currently taking 30 mg daily, and does not want to increase for pain management Assessment & Plan (04/22/2024 11:00 AM EDT): - patient is currently taking 30 mg daily, and does not want to increase for pain management Assessment & Plan (01/16/2024 12:10 PM EDT): - patient is currently taking 35 mg daily Encounters Date Type Department Care Team Description 09/09/2024 10:00 AM EST Office Visit [facility] [place] [address] Josr Sánchez MD Chronic obstructive pulmonary disease, unspecified COPD type (CMS/HCC) (Primary Dx); Strain of rotator cuff of both shoulders; Impingement of both shoulders; Chronic left shoulder pain; Tobacco dependence; Methadone dependence ([facility]); Heartburn; Asthma-COPD overlap syndrome (CMS/HCC) 09/09/2024 Travel 09/03/[address] [address] Leigh Bonilla [place] chart prep 08/29/[address] [address] Josr Sánchez MD 08/29/[address] [address] Josr Sánchez MD FMLA (I called the patient, regarding an application for FMLA. He stated that he has not seen the culinary specialist yet, because his appointment is not [...] would like to know if he co) 08/23/2024 Orders Only [facility] [place] [address] Josr Sánchez MD Chronic left shoulder pain 08/22/[address] [address] Josr Sánchez MD Results 08/22/2024 Patient Outreach [address] [address] Josr Sánchez MD Pre-visit Planning (Pre-visit planning - LVM ) 07/18/[address] [address] Josr Sánchez MD 07/12/[address] [address] Josr Sánchez MD 07/11/2024 10:00 AM EST Office Visit [address] [address] Josr Sánchez MD Chronic obstructive pulmonary disease, unspecified COPD type (CMS/HCC) (Primary Dx); Tobacco dependence; Impingement of both shoulders; Chronic left shoulder pain; Strain of rotator cuff of both shoulders; Heartburn; Protein-calorie malnutrition, unspecified severity (CMS/HCC); Hyperkalemia 07/11/2024 Travel 07/08/[address] [address] Leigh Bonilla [place] chart prep 07/03/[address] [address] Josr Sánchez MD from Last 3 Months Immunizations Name Administration Dates Next Due Influenza High-dose Quadrivalent Preservative Fr ee 07/30/2020 Influenza Quadrivalent Adjuvanted 04/07/2023 Influenza injectable quadrivalent preservative f ree 06/17/2019 Influenza, High Dose Seasonal, Preservative Free 04/22/2024 Pfizer Covid-19 Vaccine 12+ 04/22/2024, Pneumococcal Conjugate PCV 20 01/16/2024 Tdap 01/16/2024 Social History Tobacco Use Types Packs/Day Years Used Date Smoking Tobacco: Some Days Cigarettes 0.3 54 Passive Smoke Exposure: Current Smokeless Tobacco: Never Tobacco Cessation:Ready to Q uit: Not Asked; Counseling Given: Not Answered Alcohol Use Standard Drinks/Week Comments Never 0 (1 standard drink = 0.6 oz pur e alcohol) Depression Answer Date Recorded Patient Health Questionnaire-9 Score 0 09/09/2024 Patient Health Questionnaire-9 Score 0 09/09/2024 Last PHQ-9: Questionnaire Data Not on file 0 09/09/2024 Housing Stability Answer Date Recorded What is [...] Date Recorded Patient Health Questionnaire-2 Score 0 09/09/2024 Internet Access Answer Date Recorded Internet Access Q1 Yes 03/15/2024 Internet Access Q2 Not on file 03/15/2024 Sex and Gender Information Value Date Recorded Sex Assigned at Male 05/16/2022 10:38 AM EDT Legal Sex Male 10:38 AM EDT Gender Identity Male 05/16/2022 10:38 AM EDT Sexual Orientation Don't know 04/16/2024 9: 43 AM EDT Sexual Orientation Straight 04/16/2024 9: 43 AM EDT Last Filed Vital Signs Vital Sign Reading Time Taken Comments Blood Pressure 97/58 09/09/2024 10:03 AM EST Pulse 84 09/09/2024 10:03 AM EST Temperature 36.4 ??C (97.5 ??F) 09/09/2024 10:[address] Respiratory Rate 12 09/09/2024 10:03 AM EST Oxygen Saturation 95% 09/09/2024 10:03 AM EST Inhaled Oxygen Concentration - - Weight 54.6 kg (120 lb 6.4 oz) 09/09/2024 10:03 AM EST Height 172.7 cm (5' 8 ) 09/09/2024 10:03 AM EST Body Mass Index 18.31 09/09/2024 10:03 AM EST Plan of Treatment Health Maintenance Due Date Last Done Comments CT Colonography 1955 FIT DNA/Cologuard 1955 FIT 1955 FOBT 1955 Sigmoidoscopy 1955 Hepatitis A Vaccines (1 of 2 - Risk 2-dose series) 1974 Zoster Vaccines (1 of 2) 2005 RSV Patients and Patients Aged 60 years or older (1 - Risk 60-74 years 1-dose series) 2015 SDOH Screening 01/15/2025 01/16/2024 Alcohol/Substance Use Screening 04/22/2025 04/22/2024 Depression Screening 09/09/2025 09/09/2024, 09/09/19 Tobacco Screening 09/09/2025 09/09/2024 Lipid Panel 04/22/2029 04/22/2024, 02/04/2021 Colonoscopy 12/04/2031 12/03/2021 Colorectal Cancer Screening 12/04/2031 DTaP/Tdap/Td Vaccines (2 - Td or Tdap) 01/15/2034 01/16/2024 Pneumococcal Vaccine: 50+ Years Completed 01/16/2024 COVID-19 Vaccine Completed 04/22/2024, 08/2023, 03/31/2021, Additional history exists Hepatitis C Screening Completed 04/22/2024, 021 Influenza Vaccine Completed 04/22/2024, , 07/30/2020, Additional history exists HIB Vaccines Aged Out No longer eligi ble based on patient's age to complete this topic HPV Vaccines Aged Out No longer eligi ble based on patient's age to complete this topic Hepatitis B Vaccines Aged Out No long er eligible based on patient's age to complete this topic IPV Vaccines Aged Out No longer eligi ble based on patient's age to complete this topic Meningococcal Vaccine Aged Out No beatrice janak eligible based on patient's age to complete this topic RSV under 20 months Aged Out No longe r eligible based on patient's age to complete this topic Rotavirus Vaccines Aged Out No longer eligible based on patient's age to complete this topic Procedures Procedure Name Priority Date/Time Associated Diagnosis Comments BASIC METABOLIC PANEL Routine 07/11/2024 10:44 AM EST Hyperkalemia HEPATITIS C AB W/REFL TO HCV RNA, QN, PCR Routine 04/22/2024 11:27 AM EDT Routine screening for STI (sexually transmitted infection) LIPID PANEL WITH REFLEX TO DIRECT LDL Routine 04/22/2024 11:27 AM EDT Screening for lipid disorders [facility] COLONOSCOPY Routine 12/03/2021 from Last 3 Months or Most Recently Relevant to Health Maintenance Results * (ABNORMAL) Basic Metabolic Panel (07/11/2024 10:44 AM EST) Sodium 141 135 - 145 mmol/L [facility] Potassium 4.7 3.3 - 5.1 mmol/L [facility] Chloride 106 96 - 108 mmol/L [facility] Carbon Dioxide 29 22 - 29 mmol/L [facility] Anion Gap 11(L) 12 - 20 [facility] Urea Nitrogen (BUN) 19(H) 9 - 16 mg/dL [facility] Creatinine, Serum 0.81 0.5 - 1.4 mg/dL [facility] Estimated Glomerular Filt Rate >60 [facility] Comment:Chronic Kidney Disea se: Estimated GFR < 60 mL/min/1.50x5Hlohlk Kidney Disease: Estimated GFR < 15 mL/min/1.73m2 Glucose 80 60 - 115 mg/dL [facility] Calcium 9.2 8.4 - 10.2 mg/dL [facility] Blood Venous blood specimen / Unknown 07/11/2024 10:44 AM EST 07/11/2024 1:02 PM EST us Josr áSnchez MD LAB BLOOD ORDERABLES Final Resul t [facility] [address] [place] [address] [phone] * Lipid Panel with Reflex to Direct LDL (04/22/2024 11:27 AM EDT) Triglycerides 31 <150 mg/dL [facility] Comment:Desirable Triglyceri de: less than 150 mg/dLBorderline High Triglyceride 150-199 mg/dLHigh Triglyceride: 200-499 mg/dLVery High Triglyceride: greater than or equal to 5OO mg/dL Cholesterol 170 <200 mg/dL [facility] Comment:Desirable Cholestero l: less than 200 mg/dLBorderline High Cholesterol: 200-239 mg/dLHigh Cholesterol: greater than 239 mg/dL LDL Cholesterol Calculated 69 <100 mg/dL [facility] Comment:Desirable LDL: less than 100 mg/dLNear Optimal/Above Optimal LDL: 110- 129 mg/dLBorderline High LDL: 130-159 mg/dLHigh LDL: 160-189 mg/dLVery High LDL: greater than or equal to 190 mg/dL HDL Cholesterol 95 >40 mg/dL [facility] Comment:Desirable HDL: great er than 40 mg/dL Note: This HDL assay may give artificially low results in patients with liver disease. Blood 04/22/2024 11:2 7 AM EDT 04/22/2024 1:13 PM EDT Josr Sánchez MD LAB BLOOD ORDERABLES Final Resul t Performing Organization Address City/[facility] Co de Phone Number [facility] [address] [place] [phone] * Hepatitis C Antibody with Reflex to HCV, RNA, Quantitative, Real-Time PCR (04/22/2024 11:27 AM EDT) Hepatitis C Antibody Nonreactive Nonreactive [facility] Comment:Antibodies to HCV no t detected; does not exclude early acuteHCV infection. Blood Venous blood specimen / Unknown 04/22/2024 11:27 AM EDT 04/22/2024 1:13 PM EDT us Josr Sánchez MD LAB BLOOD ORDERABLES Final Resul t Performing Organization Address City/[facility]/ZIP Co de Phone Number [facility] [address] [place] [phone] * Hm Colonoscopy (12/03/2021) Colonoscopy Normal Normal 12/03/2021 Historical Provider HEALTH MAINTENANCE Final Result from Last 3 Months or Most Recently Relevant to Health Maintenance Insurance MEDICARE Care Teams [employer] Relationship Specialty Start Date End Date Josr Sánchez MD [address] [place] [phone] PCP - General Family Medicine 01/08/24
--- OUTSIDE RECORDS SUMMARY | 2024-09-13 11:14 | XMS_ITS | Encounter Summary ---
Author Organization [employer] Address [address] [facility] [address] [place] [address] Care Team Providers Care [employer] Name Role Phone Pauly Sánchez MD Primary Care Provider [phone] Encounter Details Date Type Department Care Team (Latest Contact Info) Description 09/09/2024 Travel Social History Tobacco Use Types Packs/Day Years [...] AM EDT documented as of this encounter Plan of Treatment Not on file documented as of this encounter Visit Diagnoses Not on filedocumented in this encounter Additional Health Concerns Assessment Noted Time PHQ-9 Depression Total Score: 0 09/09/19 25 10:04 AM EST documented as of this encounter Care Teams [employer] Relationship Specialty Start Date End Date Pauly Sánchez MD [address] [place] [phone] PCP - General Family Medicine 01/08/24 documented as of this encounter
--- OUTSIDE RECORDS SUMMARY | 2024-09-13 11:14 | XMS_ITS | Encounter Summary ---
Author Organization [employer] Address [address] [facility] [address] [place] [address] Care Team Providers Care Bottom Filler Name Role Phone Pauly Sánchez MD Primary Care Provider [phone] Encounter Details Date Type Department Care Team (Late st Contact Info) Description 08/23/2024 Orders Only [facility] [address] [place] [address] Pauly Sánchez MD [address] [place] [address] Chronic left shoulder pain Social History Tobacco Use Types Packs/Day Years [...] as of this encounter Visit Diagnoses Diagnosis Chronic left shoulder pain Pain in joint, shoulder region documented in this encounter Additional Health Concerns Assessment Noted Time PHQ-9 Depression Total Score: 0 01/16/20 9:53 AM EDT documented as of this encounter Care Teams Bottom Filler Relationship Specialty Start Date End Date Pauly Sánchez MD [address] [place] [phone] PCP - General Family Medicine 01/08/24 documented as of this encounter
--- OUTSIDE RECORDS SUMMARY | 2024-09-13 11:14 | XMS_ITS | Encounter Summary ---
Author Organization [employer] Address [address] [facility] 7[address] [place] [address] Care Team Providers Care Control Cabinet Assembler Name Role Phone Pauly Sánchez MD Primary Care Provider [phone] Encounter Details Date Type Department Care Team (Late st Contact Info) Description 09/09/2024 10:00 AM EST Office Visit [facility] [address], [place] [phone] Pauly Sánchez MD [address] [place] [address] Chronic obstructive pulmonary disease, unspecified COPD type (CMS/HCC) (Primary Dx); Strain of rotator cuff of both shoulders; Impingement of both shoulders; Chronic left shoulder pain; Tobacco dependence; Methadone dependence (CMS/HCC); Heartburn; Asthma-COPD overlap syndrome (CMS/HCC) Social History Tobacco Use Types Packs/Day Years [...] AM EDT documented as of this encounter Last Filed Vital Signs Vital Sign Reading [...] Mass Index 18.31 09/09/2024 10:03 AM EST documented in this encounter Miscellaneous Notes * Assessment & Plan Note - Sonu Miles - 09/09/2024 10:29 AM ESTAssociated Problem(s): Asthma-COPD overlap syndrome (CMS/HCC) - 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 Casas [facility] on 12/03/21. No malignancy or atypical cells. Negative H. pylori - continue famotidine - reduce tobacco use, minimize NSAIDs use * Assessment & Plan Note - Sonu Miles - 09/09/2024 10:08 AM ESTAssociated Problem(s): Methadone dependence (CMS/HCC) - patient is currently taking 30 mg daily, and does not want to increase for pain management * Assessment & Plan Note - Sonu Miles - 09/09/2024 10:08 AM ESTAssociated Problem(s): Strain of rotator cuff of both shoulders Refer to physical therapy and Ortho for further assessment and treatment Continue Lidocaine cream Rx Ibuprofen 800 mg TID PRN. Educated take with food May take at same time of Tylenol or stagger dosing RTC if pain worsens F/u PRN * Assessment & Plan Note - Sonu Miles - 09/09/2024 10:07 AM ESTAssociated Problem(s): Chronic left shoulder pain - Takes Tylenol with codeine - Pt is on methodone - MRI on 08/16/24 showed full-thickness tear of superior fibre of infraspinatus tendon with mild muscle atrophy - Pt has upcoming appt. with orthopedist * Assessment & Plan Note - Pauly Sánchez MD - 09/08/2024 5:55 PM ESTAssociated Problem(s): Tobacco dependence - Pt smokes occasionally and uses a nicotine patch - given number to reschedule LDCT since pt missed appt. due to work. documented in this encounter Plan of Treatment Not on file documented as of this encounter Visit Diagnoses Diagnosis Chronic obstructive pulmonary disease, unspecified COPD type (CMS/HCC)- Primary Strain of rotator cuff of both shoulders Impingement of both shoulders Chronic left shoulder pain Pain in joint, shoulder region Tobacco dependence Tobacco use disorder Methadone dependence (CMS/HCC) Opioid type dependence, unspecified abuse Heartburn Asthma-COPD overlap syndrome (CMS/HCC) documented in this encounter Additional Health Concerns Assessment Noted Time PHQ-9 Depression Total Score: 0 09/09/19 25 10:04 AM EST documented as of this encounter Care Teams Control Cabinet Assembler Relationship Specialty Start Date End Date Pauly Sánchez MD [address] [place] [id number] PCP - General Family Medicine 01/08/24 documented as of this encounter
--- OUTSIDE RECORDS SUMMARY | 2024-09-13 11:14 | XMS_ITS | Encounter Summary ---
Author Organization [employer] Address [address] [place] [address] 7 [place] [address] Care Team Providers Care Orthopedic Rn Name Role Phone Kary Ordoñez Primary Care Provider [phone] Sandy Avelar MD Primary Care Pro vider Pauly Sánchez MD Primary Care Provider [phone] Encounter Details Date Type Department Care Team (Late st Contact Info) Description 07/12/2022 Orders Only [facility] [address] [place] [address] Nereyda Castillo LPN Social History Tobacco Use Types Packs/Day Years Used Date Smoking Tobacco: Never Assessed Sex and Gender Information Value Date Recorded [...] Diagnoses Not on filedocumented in this encounter Care Teams Orthopedic Rn Relationship Specialty Start Date End Date Kary Ordoñez FNP PCP - General Family Medicine 03/14/22 04/24/23 Sandy Avelar MD [address] [place] [id number] PCP - General Internal Medicine 04/25/23 01/07/24 Pauly Sánchez MD [address] [place] [id number] PCP - General Family Medicine 01/08/24 documented as of this encounter
== END 2024-09-13 11:04 | disposition home or self-care (01) ==
PROVIDERS: PCP Family Medicine; Visit Provider Orthopaedic Surgery
DX: M24.812 Other specific joint derangements of left shoulder, not elsewhere classified (principal); M24.811 Other specific joint derangements of right shoulder, not elsewhere classified
CPT/HCPCS: 20610; 99213

== ENCOUNTER → 2024-09-13 10:07 | Outpatient (BNVA) | payer MEDICARE, SELFPAY | PROVIDERS: PCP Family Medicine; Visit Provider Orthopaedic Surgery | DX: M25.812 Other specified joint disorders, left shoulder (principal); M25.811 Other specified joint disorders, right shoulder; M75.52 Bursitis of left shoulder; M75.51 Bursitis of right shoulder | CPT/HCPCS: 20610; 99212; J0665; J1100; J2003 ==

== ENCOUNTER 2024-12-13 10:07 | Outpatient (AMB) | payer MEDICARE, SELFPAY ==
--- NOTE | 2024-12-13 10:14 | MHC.OFFVIS ---
Intake Visit Reasons: INJ-Bilat shoulder inj - last 09/13/24 Intake Note: Leon is a 69 year old left hand dominant male who presents today for a follow up of his bilateral shoulder impingement/bursitis. Injections were administered to bilateral shoulders on 09/13/24. He is not a surgical candidate - Patient reports that the right shoulder injection was helpful but the left shoulder remain painful. He would like to discuss pain with provider prior to proceeding with injections Allergies No Known Allergies [No Known Allergies*] Allergy (Verified 03/21/24 11:18) HPI HPI INJ-Bilat shoulder inj - last 09/13/24: Details: Leon is a 69 year old left hand dominant male who presents today for a follow up of his bilateral shoulder impingement/bursitis. Injections were administered to bilateral shoulders on 09/13/24. He is not a surgical candidate - Patient reports that the right shoulder injection was helpful but the left shoulder remain painful. He is left-hand dominant. He had an MRI from July of this year. He states he fell about 2 years ago and has had difficulty with overhead activity since then. He has had injections states he has done physical therapy and states his only medical issue is occasional gastritis and he has been on methadone for years. He is on a stable dose and does not want to increase. His complaint is pain and weakness but not loss of motion. [facility] Medical History (Updated 12/13/24 @ 11:11 by Anup Graham MD) Methadone use Hepatitis Memory impairment Asthma-COPD overlap syndrome Personal history of nicotine dependence Arthritis Shoulder pain, bilateral Mood disorder Inguinal hernia Dizziness Heartburn Vitamin D deficiency Anxiety Surgical History History of right inguinal hernia repair (~03/05/24) Hx of hemorrhoidectomy Hx of removal of cyst Hx of colonoscopy History of esophagogastroduodenoscopy (EGD) Family History Father Cancer Father Cancer Other HTN (hypertension) Social History Are you a primary customer care voice consultant to a significant other at home: No Do you presently have visiting nurse or other home services: No Comment: counts correct Patient Tobacco Use Status: Former Tobacco user Tobacco use type: Cigarette Cigarettes Per Day: 3 Years Smoked: 53 Physical Exam Extrem Other: Left shoulder with 4/5 strength on empty can testing. 45/90/140/T10 patient she play see fracture and c5- 7 degenerative disc disease Results Reviewed Results Reviewed: I personally reviewed the MR images. MRI from July of 2024 shows a full-thickness tear of the supraspinatus with mild atrophy. Assessment & Plan Assessment & Plan (1) Rotator cuff tear, left: Code(s): M75.102 - Unspecified rotator cuff tear or rupture of left shoulder, not specified as traumatic Category: Medical Plan: This is a 69-year-old gentleman with a history of opioid addiction has been on methadone for years. He has difficulty raising his left arm to engage in daily activities and pain at night. He has had injections and therapy but feels frustrated that his pain is so persist in his so severe. I think arthroplasty is premature and while I am not 100% positive that the tear is fixable I think it is reasonable to attempt arthroscopic rotator cuff repair. I discussed with him of the surgery. I discussed with him the risks, benefits and alternatives of surgery including to, but not limited to, the risk of infection, stiffness, incomplete symptom resolution, medical complications associated with surgery. He expressed understanding and we will proceed forward accordingly. Coding Level of Care Code Est Pt Level 4 (13603) Diagnoses Rotator cuff tear, left M75.102
--- OUTSIDE RECORDS SUMMARY | 2024-12-13 10:41 | XMS_ITS | Clinical Summary ---
Author Organization [employer] Address [address] [place] [address] [address] [place] [address] Care Team Providers Care Hedis Specialist Name Role Phone Josr Sánchez MD Primary Care Provider [phone] Allergies No known active allergies Medications acetaminophen (Tylenol Extra Strength) 500 MG tablet Take 2 tablets (1,000 mg) by mouth every 8 (eight) hours if needed for moderate pain. 180 tablet 1 4 Active Melatonin 3 MG capsule Take 1 capsule by mouth 2 hours prior to your desired bedtime 30 capsule 3 4 Active famotidine (Pepcid) 20 MG tabletIndication s:Heartburn Take 1 tablet (20 mg) by mouth if needed in the morning and at bedtime for heartburn. 180 tablet 2 5 Active acetaminophen-co deine (Tylenol w/ Codeine #3) 300-30 MG tabletIndication s:Chronic left shoulder pain Take 1 tablet by mouth if needed in the morning and at bedtime for severe pain. 56 tablet 5 Active albuterol 108 (90 Base) MCG/ACT inhaler Inhale 2 puffs every 4 (four) hours if needed for wheezing or shortness of breath. Maximum 8 puffs per day 18 g 3 5 09/09/19 26 Active Umeclidinium [place] (Incruse Ellipta) 62.5 MCG/ACT aerosol powder Inhale 1 Act (62.5 mcg) Once per day. 30 Act 11 5 Active Symbicort 80-4.5 MCG/ACT inhalerIndicatio ns:Chronic obstructive pulmonary disease, unspecified COPD type (CMS/HCC) INHALE 2 PUFFS BY MOUTH TWICE DAILY IN THE MORNING AND AT BEDTIME, RINSE MOUTH AFTER USING. DO NOT SWALLOW 10.2 g 1 5 Active Active Problems Problem Noted Date Diagnosed Date [...] acromioclavicular osteoarthritis. - seen by Dr. Graham, [facility] on 02/16/24 - patient has tried [...] AM EST): - EGD by Dr. Casas [facility] on 12/03/21. No malignancy or atypical cells. Negative H. pylori - continue famotidine - reduce tobacco use, minimize NSAIDs use Assessment & Plan (07/18/2024 5:32 AM EST): - EGD by Dr. Casas [facility] on 12/03/21. No malignancy or atypical cells. Negative H. Pylori. - continue famotidine, will check H.pylori - reduce tobacco use, minimize NSAIDs use Assessment & Plan (04/22/2024 10:29 AM EDT): - EGD by Dr. Casas [facility] on 12/03/21. No malignancy or atypical [...] Asthma-COPD overlap syndrome 04/04/2023 Assessment & Plan (09/13/2024 11:53 AM EST): - 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 see veterinary manager, last seen in Mar 2024, patient was prescribed Wixela but does not have currently - continue umeclidinium (Incruse) - restart SMART with budesonide / formoterol (Symbicort) - continue albuterol PRN - continue working on smoking cessation - advised to reschedule chest CT, given number to call Assessment & Plan (09/08/2024 6:15 PM EST): >>ASSESSMENT AND PLAN FOR CHRONIC OBSTRUCTIVE PULMONARY DISEASE (CMS/HCC) WRITTEN ON 04/04/2023 6:07 PM BY OSMEL BALTAZAR Refill symbicort Care managed by Pulm F/u PRN Assessment & Plan (09/08/2024 6:15 PM EST): >>ASSESSMENT AND PLAN FOR CHRONIC OBSTRUCTIVE PULMONARY DISEASE (CMS/HCC) WRITTEN ON 01/16/2024 12:06 PM BY BERT DAVIES - 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 see veterinary manager, last seen in JUN 2022, patient was prescribed Symbicort but does not have currently - will restart Symbicort and will start incruse - continue albuterol PRN - continue working on smoking cessation - will order lung cancer screening chest CT Assessment & Plan (09/08/2024 6:15 PM EST): >>ASSESSMENT AND PLAN FOR CHRONIC OBSTRUCTIVE PULMONARY DISEASE ([facility]/HCC) WRITTEN ON 04/26/2024 2:40 PM BY VINCE MANCILLA - 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 see veterinary manager, last seen in JUN 2022, patient was prescribed Symbicort but does not have currently - continue Symbicort and Incruse - continue albuterol PRN - continue working on smoking cessation - advised to reschedule chest CT, given number to call Assessment & Plan (09/08/2024 6:15 PM EST): >>ASSESSMENT AND PLAN FOR CHRONIC OBSTRUCTIVE PULMONARY DISEASE ([facility]/HCC) WRITTEN ON 07/18/2024 5:32 AM BY JOSR SÁNCHEZ MD - 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 see veterinary manager, last seen in JUN 2022, patient was [...] Encounters Date Type Department Care Team Description 11/09/2024 Refill [facility] [address] [place] [address] Josr Sánchez MD Chronic obstructive pulmonary disease, unspecified COPD type ([facility]/HCC) 10/10/2024 Telephone [facility] [address] [place] [address] Josr Sánchez MD Appointment Request from Last 3 Months Immunizations Immunization Administration Dates Next Due Influenza High-dose Quadrivalent [...] 43 AM EDT Sexual Orientation Straight 04/16/2024 9 :43 AM EDT Last Filed Vital Signs Vital [...] 09/09/2024 10:03 AM EST Plan of Treatment Upcoming Encounters Date Type Department Care Team (Late st Contact Info) Description 12/18/2024 10:15 AM EDT Office Visit [facility] [address], [place] [phone] Josr Sánchez MD [address] [place], [place] [phone] Health Maintenance Due Date Last Done Comments CT Colonography 1955 FIT DNA/Cologuard 1955 FIT 1955 FOBT 1955 Sigmoidoscopy 1955 Zoster Vaccines (1 of 2) 2005 RSV Patients and Patients Aged 60 years or older (1 - Risk 60-74 years 1-dose series) 2015 COVID-19 Vaccine ( season) 2024 04/22/2024, 01/16/2024, 03/31/2021, Additional history exists SDOH Screening 01/15/2025 01/16/2024 Alcohol/Substance Use Screening 04/22/2025 04/22/2024 Depression Screening 09/09/2025 09/09/2024, 09/09/19 Tobacco Screening 09/13/2025 09/13/2024 Lipid Panel 04/22/2029 04/22/2024, 02/04/2021 Colonoscopy 12/04/2031 12/03/2021 Colorectal Cancer Screening 12/04/2031 DTaP/Tdap/Td Vaccines (2 - Td or Tdap) 01/15/2034 01/16/2024 Pneumococcal Vaccine: 50+ Years Completed 01/16/2024 Hepatitis C Screening Completed 04/22/2024, 021 Influenza Vaccine Completed 04/22/2024, , 07/30/2020, Additional history exists HIB Vaccines Aged Out No longer eligi ble based on patient's age to complete this topic HPV Vaccines Aged Out No longer eligi ble based on patient's age to complete this topic Hepatitis A Vaccines Aged Out No long er eligible based on patient's age to complete this topic Hepatitis B Vaccines Aged Out No long er eligible based on patient's age to complete this topic IPV Vaccines Aged Out No longer eligi ble based on patient's age to complete this topic Meningococcal B Vaccine Aged Out No l onger eligible based on patient's age to complete [...] Procedure Name Priority Date/Time Associated Diagnosis Comments HEPATITIS C AB W/REFL TO HCV RNA, QN, PCR Routine 04/22/2024 11:27 AM EDT Routine screening for STI (sexually transmitted infection) LIPID PANEL WITH REFLEX TO DIRECT LDL Routine 04/22/2024 11:27 AM EDT Screening for lipid disorders [facility] COLONOSCOPY Routine 12/03/2021 from Last 3 Months or Most Recently Relevant to Health Maintenance Results * Lipid Panel with Reflex to Direct LDL (04/22/2024 11:27 AM EDT) Triglycerides 31 <150 mg/dL [facility] Comment:Desirable Triglyceri de: less than 150 mg/dLBorderline High Triglyceride 150-199 mg/dLHigh Triglyceride: 200-499 mg/dLVery High Triglyceride: greater than or equal to 5OO mg/dL Cholesterol 170 <200 mg/dL [facility] Comment:Desirable Cholestero l: less than 200 mg/dLBorderline High Cholesterol: 200-239 mg/dLHigh Cholesterol: greater than 239 mg/dL LDL Cholesterol Calculated 69 <100 mg/dL [facility] Comment:Desirable LDL: less than 100 mg/dLNear Optimal/Above Optimal LDL: 110- 129 mg/dLBorderline High LDL: 130-159 mg/dLHigh LDL: 160-189 mg/dLVery High LDL: greater than or equal to 190 mg/dL HDL Cholesterol 95 >40 mg/dL [facility] Comment:Desirable HDL: great er than 40 mg/dL Note: This HDL assay may give artificially low results in patients with liver disease. Blood 04/22/2024 11:2 7 AM EDT 04/22/2024 1:13 PM EDT us Josr Sánchez MD LAB BLOOD ORDERABLES Final Resul t [facility] [address] [place] [address] [phone] * Hepatitis C Antibody with Reflex to HCV, RNA, Quantitative, Real-Time PCR (04/22/2024 11:27 AM EDT) Hepatitis C Antibody Nonreactive Nonreactive [facility] Comment:Antibodies to HCV no t detected; does not exclude early acuteHCV infection. Blood Venous blood specimen / Unknown 04/22/2024 11:27 AM EDT 04/22/2024 1:13 PM EDT Josr Sánchez MD LAB BLOOD ORDERABLES Final Resul t [facility] [address] [place] [phone] * Hm Colonoscopy (12/03/2021) Colonoscopy Normal Normal 12/03/2021 Shayy Provider HEALTH MAINTENANCE Final Result from Last 3 Months or Most Recently Relevant to Health Maintenance Insurance [place] [address] [place] [phone] Care Teams Hedis Specialist Relationship Specialty Start Date End Date Josr Sánchez MD [address] [place] [phone] PCP - General Family Medicine 01/08/24
== END 2024-12-13 10:59 | disposition home or self-care (01) ==
PROVIDERS: PCP Family Medicine; Visit Provider Orthopaedic Surgery
DX: M75.102 Unspecified rotator cuff tear or rupture of left shoulder, not specified as traumatic (principal)
CPT/HCPCS: 99214

== ENCOUNTER → 2024-12-13 10:07 | Outpatient (BNVA) | payer MEDICARE, SELFPAY | PROVIDERS: PCP Family Medicine; Visit Provider Orthopaedic Surgery | DX: M75.102 Unspecified rotator cuff tear or rupture of left shoulder, not specified as traumatic (principal) | CPT/HCPCS: 99212 ==

== ENCOUNTER 2024-12-24 08:50 | Outpatient (REF) | payer MEDICARE, SELFPAY ==
--- OUTSIDE RECORDS SUMMARY | 2024-12-24 09:18 | XMS_ITS | Clinical Summary ---
Author Organization [email or web address] Address [address] [place] [address] [address] [place] [address] Care Team Providers Care Dispatcher Maintenance Name Role Phone Josr Sánchez MD Primary Care Provider [phone] Allergies No known active allergies Medications acetaminophen [...] g 3 5 09/09/19 26 Active Umeclidinium Vassar (Incruse Ellipta) 62.5 MCG/ACT aerosol powder Inhale 1 Act (62.5 mcg) Once per day. 30 Act 11 5 Active Symbicort 80-4.5 MCG/ACT inhalerIndicatio ns:Chronic obstructive pulmonary disease, unspecified COPD type (CMS/HCC) INHALE 2 PUFFS BY MOUTH TWICE DAILY IN THE MORNING AND AT BEDTIME, RINSE MOUTH AFTER USING. DO NOT SWALLOW 10.2 g 1 5 Active meclizine (Antivert) 25 MG tablet Take 1 tablet (25 mg) by mouth if needed in the morning, at noon, and at bedtime for dizziness for up to 10 days. 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 with orthopedist Assessment & Plan (09/09/2024 10:28 AM EST): [...] acromioclavicular osteoarthritis. - seen by Dr. Graham, [facility] on 02/16/24 - patient has tried [...] elevated Tobacco dependence 01/16/2024 Assessment & Plan (12/18/2024 9:06 AM EDT): - Pt smokes occasionally and uses a nicotine patch - given number to reschedule LDCT since pt missed appt. due to work. Assessment & Plan (09/09/2024 10:08 AM EST): [...] famotidine 20 mg BID Assessment & Plan (12/18/2024 9:05 AM EDT): - EGD by Dr. Casas [facility] on 12/03/21. No malignancy or atypical cells. Negative H. pylori - continue famotidine - reduce tobacco use, minimize NSAIDs use Assessment & Plan (09/09/2024 10:27 AM EST): - EGD by Dr. Casas [facility] on 12/03/[facility]. No malignancy or atypical cells. Negative H. pylori - continue famotidine - reduce tobacco use, minimize NSAIDs use Assessment & Plan (07/18/2024 5:32 AM EST): - EGD by Dr. Casas [facility] on 12/03/21. No malignancy or atypical cells. Negative H. Pylori. - continue famotidine, will check H.pylori - reduce tobacco use, minimize NSAIDs use Assessment & Plan (04/22/2024 10:29 AM EDT): - EGD by Dr. Casas [facility] on 12/03/21. No malignancy or atypical [...] Asthma-COPD overlap syndrome 04/04/2023 Assessment & Plan (12/18/2024 9:06 AM EDT): - 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 see laser engineer, last seen in Mar 2024, patient was prescribed Wixela but does not have currently - continue umeclidinium (Incruse) - restart SMART with budesonide / formoterol (Symbicort) - continue albuterol PRN - continue working on smoking cessation - advised to reschedule chest CT, given number to call Assessment & Plan (09/13/2024 11:53 AM EST): - 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 see laser engineer, last seen in Mar 2024, patient was prescribed Wixela but does not have currently - continue umeclidinium (Incruse) - restart SMART with budesonide / formoterol (Symbicort) - continue albuterol PRN - continue working on smoking cessation - advised to reschedule chest CT, given number to call Assessment & Plan (09/08/2024 6:15 PM EST): >>ASSESSMENT AND PLAN FOR CHRONIC OBSTRUCTIVE PULMONARY DISEASE ([facility]) WRITTEN ON 04/04/2023 6:07 PM BY OSMEL BALTAZAR Refill symbicort Care managed by Pulm F/u PRN Assessment & Plan (09/08/2024 6:15 PM EST): >>ASSESSMENT AND PLAN FOR CHRONIC OBSTRUCTIVE PULMONARY DISEASE (CMS/HCC) WRITTEN ON 01/16/2024 12:06 PM BY BERT DAVIES - 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 see laser engineer, last seen in JUN 2022, patient was prescribed Symbicort but does not have currently - will restart Symbicort and will start incruse - continue albuterol PRN - continue working on smoking cessation - will order lung cancer screening chest CT Assessment & Plan (09/08/2024 6:15 PM EST): >>ASSESSMENT AND PLAN FOR CHRONIC OBSTRUCTIVE PULMONARY DISEASE (CMS/HCC) WRITTEN ON 04/26/2024 2:40 PM BY VINCE MANCILLA - 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 see laser engineer, last seen in JUN 2022, patient was prescribed Symbicort but does not have currently - continue Symbicort and Incruse - continue albuterol PRN - continue working on smoking cessation - advised to reschedule chest CT, given number to call Assessment & Plan (09/08/2024 6:15 PM EST): >>ASSESSMENT AND PLAN FOR CHRONIC OBSTRUCTIVE PULMONARY DISEASE (CMS/HCC) WRITTEN ON 07/18/2024 5:32 AM BY JOSR SÁNCHEZ MD - 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 see laser engineer, last seen in JUN 2022, patient was [...] months Methadone dependence 03/07/2022 Assessment & Plan (12/18/2024 9:06 AM EDT): - patient is currently taking 30 mg daily, and does not want to increase for pain management Assessment & Plan (09/09/2024 10:08 AM EST): [...] Encounters Date Type Department Care Team Description 12/24/2024 9:15 AM EDT Office Visit [facility] [address] [place] [address] Sandy Avelar MD Arrived 12/24/2024 Travel 12/18/2024 10:15 AM EDT Office Visit [facility] [address] [place] [address] Josr Sánchez MD Preop examination (Primary Dx); Chronic left shoulder pain; Asthma-COPD overlap syndrome ([facility]/HCC); Tobacco dependence; Heartburn; Methadone dependence ([facility]/HCC) 12/18/2024 Travel 12/17/2024 Telephone [facility] [address] [place] [address] Josr Sánchez MD Chart Prep 12/13/2024 Telephone [facility] [address] [place] [address] Josr Sánchez MD Lab Orders (/) 11/09/[address] [address] Josr Sánchez MD Chronic obstructive pulmonary disease, unspecified COPD type ([facility]) 10/10/2024 Telephone [facility] [address], [place] [phone] Josr Sánchez MD Appointment Request from Last [...] Sign Reading Time Taken Comments Blood Pressure 124/70 12/24/2024 9:16 AM EDT Pulse 91 12/24/2024 9:16 AM EDT Temperature 36.3 ??C (97.3 ??F) 12/24/2024 9:16 AM ED T Respiratory Rate 20 12/24/2024 9:16 AM EDT Oxygen Saturation 97% 12/24/2024 9:16 AM EDT Inhaled Oxygen Concentration - - Weight 55.8 kg (123 lb) 12/24/2024 9:16 AM EDT Height 167.6 cm (5' 6 ) 12/24/2024 9:16 AM EDT Body Mass Index 19.85 12/24/2024 9:16 AM EDT Plan of Treatment Health Maintenance Due Date [...] Depression Screening 09/09/2025 09/09/2024, 09/09/19 Tobacco Screening 12/18/2025 12/18/2024 Lipid Panel 04/22/2029 04/22/2024, 02/04/2021 Colonoscopy 12/04/2031 [...] 11:27 AM EDT) Triglycerides 31 <150 mg/dL [facility] Comment:Desirable Triglyceri de: less than 150 mg/dLBorderline High Triglyceride 150-199 mg/dLHigh Triglyceride: 200-499 mg/dLVery High Triglyceride: greater than or equal to 5OO mg/dL Cholesterol 170 <200 mg/dL [facility] Comment:Desirable Cholestero l: less than 200 mg/dLBorderline High Cholesterol: 200-239 mg/dLHigh Cholesterol: greater than 239 mg/dL LDL Cholesterol Calculated 69 <100 mg/dL [facility] Comment:Desirable LDL: less than 100 mg/dLNear Optimal/Above Optimal LDL: 110- 129 mg/dLBorderline High LDL: 130-159 mg/dLHigh LDL: 160-189 mg/dLVery High LDL: greater than or equal to 190 mg/dL HDL Cholesterol 95 >40 mg/dL [facility] Comment:Desirable HDL: great er than 40 mg/dL Note: This HDL assay may give artificially low results in patients with liver disease. Blood 04/22/2024 11:2 7 AM EDT 04/22/2024 1:13 PM EDT us Josr Sánchez MD LAB BLOOD ORDERABLES Final Resul t [facility] [address] [place] [address] [phone] * Hepatitis C Antibody with Reflex to HCV, RNA, Quantitative, Real-Time PCR (04/22/2024 11:27 AM EDT) Hepatitis C Antibody Nonreactive Nonreactive [facility] Comment:Antibodies to HCV no t detected; does not exclude early acuteHCV infection. Blood Venous blood specimen / Unknown 04/22/2024 11:27 AM EDT 04/22/2024 1:13 PM EDT Josr Sánchez MD LAB BLOOD ORDERABLES Final Resul t [facility] [address] [place] [address] [phone] * Hm Colonoscopy (12/03/2021) Colonoscopy Normal Normal 12/03/2021 Historical Provider HEALTH MAINTENANCE Final Result from Last 3 Months or Most Recently Relevant to Health Maintenance Insurance [facility] [employer] MED[employer]ARE REPLACEMENT Care Teams Dispatcher Maintenance Relationship Specialty Start Date End Date Josr Sánchez MD [address] [place] [id number] PCP - General Family Medicine 01/08/24
[2024-12-24 11:20] LABS: MANUAL DIFF FLAG NO
[2024-12-24 11:25] LABS: Basophils Percent Auto 0.8 % (0-2); Eosinophils Absolute Auto 0.2 X10*3/uL (0.0-0.4); Eosinophils Percent Auto 4.3 % (0-4); Hemoglobin 13.9 g/dl (14.0-18.0); Imm Gran Abs Auto 0.01 X10*3/uL (0.00-0.03); Imm Gran Pct Auto 0.2 % (0.0-0.4); Lymphocytes Absolute Auto 1.7 X10*3/uL (1.2-4.9); Lymphocytes Percent Auto 33.9 % (20-40); Mean Corpuscular HGB Conc 31.6 g/dl (31.0-36.0); Mean Corpuscular Hemoglobin 28.8 pg (27.0-33.0); Mean Corpuscular Volume 91.3 fL (80.0-98.0); Mean Platelet Volume 11.6 fL (9.4-12.4); Monocytes Absolute Auto 0.4 X10*3/uL (0.1-1.2); Monocytes Percent Auto 8.3 % (2-11); Neutrophils Absolute Auto 2.7 x10*3/uL (2.0-8.3); Neutrophils Percent Auto 52.5 % (45-73); Platelet Count 220 X10*3/uL (160-400); Red Blood Count 4.82 X10*6/uL (4.60-5.80); White Blood Count 5.1 X10*3/uL (4.8-10.8)
[2024-12-24 11:46] LABS: Anion Gap 9 (12-20); Blood Urea Nitrogen 19 mg/dL (9-16); Calcium 9.5 mg/dL (8.4-10.2); Carbon Dioxide 29 mmol/L (22-29); Chloride 106 mmol/L (96-108); Estimated Glomerular Filt Rate > 60; Glucose Random 89 mg/dL (60-115); Sodium 140 mmol/L (135-145)
[2024-12-24 11:47] LABS: Anion Gap 13 (12-20); Blood Urea Nitrogen 20 mg/dL (9-16); Calcium 9.7 mg/dL (8.4-10.2); Carbon Dioxide 27 mmol/L (22-29); Chloride 105 mmol/L (96-108); Estimated Glomerular Filt Rate > 60; Glucose Random 88 mg/dL (60-115); Sodium 141 mmol/L (135-145)
== END 2024-12-24 08:51 | disposition home or self-care (01) ==
LOC: HO.HHCL 08:50
PROVIDERS: Family Medicine; Visit Provider Family Medicine
DX: Z13.89 Encounter for screening for other disorder (principal)
CPT/HCPCS: 36415; 80048; 85025

== ENCOUNTER 2024-12-24 10:19 | Outpatient (REF) | payer MEDICARE, SELFPAY ==
[2024-12-24 11:48] LABS: Anion Gap 12 (12-20); Blood Urea Nitrogen 20 mg/dL (9-16); Calcium 9.7 mg/dL (8.4-10.2); Carbon Dioxide 29 mmol/L (22-29); Chloride 105 mmol/L (96-108); Estimated Glomerular Filt Rate > 60; Glucose Random 87 mg/dL (60-115); Potassium 4.5 mmol/L (3.3-5.1); Sodium 141 mmol/L (135-145)
[2024-12-24 12:10] LABS: Prostate Specific Antigen 0.51 ng/mL (<0.05-4.0)
[2024-12-27 20:24] LABS: TS Negative Control Passed; TS Panel A 1; TS Panel B 1; TS Positive Control Passed; TSpotTB Negative (Negative)
== END 2024-12-24 10:20 | disposition home or self-care (01) ==
LOC: HO.HHCL 10:19
PROVIDERS: Student in an Organized Health Care Education/Training Program; Visit Provider Family Medicine
DX: Z11.1 Encounter for screening for respiratory tuberculosis (principal); E87.5 Hyperkalemia; M25.512 Pain in left shoulder; G89.29 Other chronic pain; Z00.00 Encounter for general adult medical examination without abnormal findings
CPT/HCPCS: 36415; 80048; 84153; 85025; 86481

== ENCOUNTER 2025-01-02 15:37 | Outpatient (AMB) | payer MEDICARE, MEDICAID, SELFPAY ==
--- NOTE | 2025-01-02 15:46 | MHC.OFFVIS ---
Vital Signs 01/02/25 15:47 Height 5 ft 6 in Weight 125 lb BMI 20.2 BP 88/52 L Blood Pressure Location Lt brachial Position Sitting Pulse 67 Pulse Source Pulse Oximeter Pulse Oximetry (%) 97 Oxygen Delivery Method Room Air Intake Visit Reasons: dr graham surgery Intake Note: pt is here for pre -op clearance for rotator cuff surgery by Dr. 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 Allergies No Known Allergies (No Known Allergies*) Allergy (Verified 01/02/25 16:22) Medication List - Last Reconciled 01/02/25 by Braydon Bridges MD albuterol sulfate 90 mcg/actuation 2 puffs inhalation Q6H PRN cyanocobalamin (vitamin B-12) (Vitamin B-12) 500 mcg PO DAILY PRN famotidine 40 mg PO DAILY PRN fluticasone propion-salmeterol 250-50 mcg/dose (Wixela Inhub) 1 inh inhalation DAILY [methadone 35 mg PO BEDTIME] Do you need a note to return to daycare/school/sports/work: No HPI HPI dr graham surgery: Details: This 69 years old gentleman is a case of asthma/COPD, who has remained well controlled with use of Wixela 250-50 twice a day and albuterol only once in a while. Since last year he has had no acute exacerbation. He is still smoking about 5 cigarettes a day. He say is he can climb up. to the 2nd floor without getting short of breath He can walk on the street without any shortness of breath. He has only minimal cough without expectoration and denies any wheezing. [facility] Medical History Methadone use Hepatitis Memory impairment Asthma-COPD overlap syndrome Personal history of nicotine dependence Arthritis Shoulder pain, bilateral Mood disorder Inguinal hernia Dizziness Heartburn Vitamin D deficiency Anxiety Surgical History History of right inguinal hernia repair (~03/05/24) Hx of hemorrhoidectomy Hx of removal of cyst Hx of colonoscopy History of esophagogastroduodenoscopy (EGD) Family History Father Cancer Father Cancer Other HTN (hypertension) Social History Are you a primary adult care provider to a significant other at home: No Do you presently have visiting nurse or other home services: No Comment: counts correct Patient Tobacco Use Status: Current everyday Tobacco user Tobacco use type: Cigarette Cigarette Packs Per Day: 0.25 Cigarettes Per Day: 3 Years Smoked: 53 Review of Systems Const All systems reviewed & are unremarkable except as noted in HPI and below Eyes Reports no additional complaints ENT Reports no additional complaints Card Denies chest pain, Denies irregular heart rhythm and Reports dyspnea on exertion (mild) Resp Reports as per HPI and Reports dyspnea on exertion (mild) GI Reports dyspepsia and Reports heartburn (Controlled with med) Reports no additional complaints Musc Reports back pain and Reports myalgias Skin/Breast Reports system reviewed and no additional complaints, except as documented Neuro Reports no additional complaints Psych Reports anxiety Endo Reports no additional complaints Tarun/Lymph Reports no additional complaints Aller/Immun Reports no additional complaints Physical Exam Vital Signs: Last Vital Signs Pulse 67 01/02/25 15:47 BP 88/52 L 01/02/25 15:47 Pulse Ox 97 01/02/25 15:47 Oxygen Delivery Method Room Air 01/02/25 15:47 BMI result Body Mass Index 20.2 Const Other: He is of a thin build, otherwise healthy looking General: comfortable, no acute distress, alert and awake Orientation/consciousness: patient oriented x3 HEENT Head: Yes normal to inspection General nose exam: No nasal polyps present and No nasal discharge present Face and sinus: Yes sinuses nontender Mouth: oropharynx normal Throat: Yes posterior oropharynx normal Eyes General: appearance normal, both eyes and all related structures Neck Neck: Yes normal visual inspection, Yes no lymphadenopathy, Yes trachea midline and Yes no JVD Thyroid: Thyroid normal Chest Chest palpation & inspection: normal inspection of the chest, normal palpation of entire chest wall and no tenderness Resp Other: Percussion note hyper-resonant, Breath sounds are moderately distant with Prolonged expiratory phase NO WHEEZES OR CREPITATIONS ARE HEARD TODAY. Cardio Palpation: normal PMI Rate: regular rate Rhythm: regular rhythm Heart sounds: no gallops and no murmurs Peripheral pulses: Peripheral pulses 2+ throughout GI Palpation (GI): Soft to palpation, nontender, No hepatosplenomegaly present and no masses Auscultation: normal bowel sounds Back/Spine/Pelvis Thoracic/Lumbar Spine: thoracic and lumbar spine normal to inspection Skin General skin exam: no rashes or lesions noted Neuro General: patient oriented x3 and no focal motor deficits Cranial nerves: Yes CN's II-XII intact bilaterally Extrem General: Yes normal to inspection, Yes no clubbing, cyanosis or edema and Yes no calf tenderness Psych Appearance: grossly normal and well kempt Speech and movement: Normal speech and movement present Office Procedures Spirometry Testing Spirometry Comments: In office spirometry completed with results given to Dr Bridges. [address]- Spirometry Results Reviewed Results Reviewed: SPIROMETRY IN THE OFFICE TODAY, FVC 80%,, FEV1 56%, FEF 2570 529%. THESE RESULTS ARE CONSISTENT WITH MODERATELY SEVERE OBSTRUCTIVE AIRWAY DISORDER THESE RESULTS ARE SIMILAR TO THE SPIROMETRY FINDINGS IN 2023 Assessment & Plan Assessment & Plan (1) Asthma-COPD overlap syndrome: Comment: ACOS TX with ICS/LABA Combination and has done well Currently on WIXELA 250-50 1 INHALATION B.I.D. Using only once a day, Rarely needs ALBUTEROL HFA. Physical Capacity good, no dyspnea with work. Code(s): J44.9 - Chronic obstructive pulmonary disease, unspecified Category: Medical (2) Personal history of nicotine dependence: Comment: HE HAS LONGSTANDING HISTORY OF SMOKING AND CURRENTLY SMOKING ABOUT 5 CIGARETTES A DAY. Code(s): Z87.891 - Personal history of nicotine dependence Category: Medical Plan: I TOLD HIM THAT BEFORE ANY MAJOR SURGERY HE SHOULD TRY TO QUIT COMPLETELY. HE SAID YES HE IS GOING TO DO HIS BEST Plan * PULMONARY CLEARANCE FOR HIS FORTHCOMING SURGERY ON THE LEFT SHOULDER. HIS MODERATELY SEVERE OBSTRUCTIVE AIRWAY DISORDER IS WELL CONTROLLED . HE IS CLEARED FOR SURGERY. NO SIGNIFICANT PULMONARY COMPLICATIONS ARE EXPECTED. Orders: Orders AMB Spirometry Testing Today J44.9 - Chronic obstructive pulmonary disease, unspecified Coding Level of Care Code Est Pt Level 4 (98031) Diagnoses Asthma-COPD overlap syndrome J44.9 Personal history of nicotine dependence Z87.891 CPT Codes Spirometry - CPT: 19365- Spirometry ([id number])
[2025-01-02 15:47] VITALS: BP 88/52; PULSE 67; O2SAT 97; BMI 20.2
--- OUTSIDE RECORDS SUMMARY | 2025-01-02 16:46 | XMS_ITS | Clinical Summary ---
Author Organization [employer] Address [address] [place] [address] [address] [place] [address] Care Team Providers Care Multi Skilled Operator Name Role Phone Pauly Sánchez MD Primary Care Provider Allergies No known active allergies Medications acetaminophen (Tylenol Extra Strength) 500 MG tablet Take 2 tablets (1,000 mg) by mouth every 8 (eight) hours if needed for moderate pain. 180 tablet 1 4 Active Additional Information Patient not taking.Reported on 12/24/2024 Melatonin 3 MG capsule Take 1 capsule by mouth 2 hours prior to your desired bedtime 30 capsule 3 4 Active Additional Information Patient not taking.Reported on 12/24/2024 famotidine (Pepcid) 20 MG tabletIndicatio ns:Heartburn Take 1 tablet (20 mg) by mouth if needed in the morning and at bedtime for heartburn. 180 tablet 2 5 Active acetaminophen-c odeine (Tylenol w/ Codeine #3) 300-30 MG tabletIndicatio ns:Chronic left shoulder pain Take 1 tablet by mouth if needed in the morning and at bedtime for severe pain. 56 tablet 5 Active Additional Information Patient not taking.Reported on 12/24/2024 albuterol 108 (90 Base) MCG/ACT inhaler Inhale 2 puffs every 4 (four) hours if needed for wheezing or shortness of breath. Maximum 8 puffs per day 18 g 3 5 09/09/19 26 Active Umeclidinium [place] (Incruse Ellipta) 62.5 MCG/ACT aerosol powder Inhale 1 Act (62.5 mcg) Once per day. 30 Act 11 5 Active Symbicort 80-4.5 MCG/ACT inhalerIndicati ons:Chronic obstructive pulmonary disease, unspecified COPD type (CMS/HCC) [...] 10 days. 30 tablet 5 12/29/19 25 zoster vaccine-recombi nant adjuvanted (Shingrix) 50 MCG/0.5ML vaccine Inject 0.5 mL (50 mcg) into the muscle 1 (one) time for 1 dose. To start series 0.5 mL 5 12/25/19 25 Active Problems Problem Noted Date Diagnosed Date Health care maintenance 12/25/2024 Assessment & Plan (12/25/2024 6:56 AM EDT): -colonoscopy 2021 No polyps were detected,Moderate diverticulosis seen in the Left colon Repeat 5 years due to inadequate prep -PSA order today -Vaccines s/p Flu vaccine 04/2024 ,P20 01/2024,Covid 19 -Last booster 04/2024,Tdap 2023 ,advised RSV today to janak at his pharmacy ,Shingrix advised to get at px precribed today -labs done 04/2024 normal ,had repeat CBC and chem by PCP already done today -pd results , I ordered T-spot today for work form Impingement of both shoulders 04/22/2024 Protein calorie malnutrition 04/22/2024 Chronic left shoulder pain 01/16/2024 Assessment & Plan (12/25/2024 9:38 AM EDT): - MRI on 08/16/24 showed full-thickness tear of superior fibre of infraspinatus tendon with mild muscle atrophy - He has received intraarticular steroid injection with marginal relief - Taking methadone for opioid use disorder treatment and for pain (recently increased its dose) - Scheduled for arthroscopic procedure Assessment & Plan (09/09/2024 10:28 AM EST): [...] acromioclavicular osteoarthritis. - seen by Dr. Graham, [facility] [place] [facility] on 02/16/24 - patient has tried [...] 01/16/2024 Memory impairment 01/16/2024 Assessment & Plan (12/25/2024 6:49 AM EDT): -reports memory issues,mother w Alzheimer -04/2024 RPR neg,HIV neg,Vit B and folate wnl -request today to RN to eval prior next apt w PCP Assessment & Plan (01/16/2024 12:11 PM EDT): [...] elevated Tobacco dependence 01/16/2024 Assessment & Plan (12/25/2024 6:55 AM EDT): Started Smoking 14 y of age ,until now, stopped before for 7 years,so total of 48 y 10 cig a day in average -now 3-5 Calc 24 PQT a year -referred for lung ca screening before by PCP but not done -referred again today and encouraged pt to get test done -pt states has nicotine patches at home and gums -advised to start but pt states he is not sure yet if willing to stop -referred today for AAA US for screening Assessment & Plan (12/18/2024 9:06 AM EDT): [...] EDT): - EGD by Dr. Casas Juan AGUILERA on 12/03/21. No malignancy or atypical cells. Negative H. pylori - continue famotidine - reduce tobacco use, minimize NSAIDs use Assessment & Plan (09/09/2024 10:27 AM EST): - EGD by Dr. Casas Juan AGUILERA on 12/03/21. No malignancy or atypical cells. Negative H. pylori - continue famotidine - reduce tobacco use, minimize NSAIDs use Assessment & Plan (07/18/2024 5:32 AM EST): - EGD by Dr. Casas Juan AGUILERA on 12/03/21. No malignancy or atypical cells. Negative H. Pylori. - continue famotidine, will check H.pylori - reduce tobacco use, minimize NSAIDs use Assessment & Plan (04/22/2024 10:29 AM EDT): - EGD by Dr. Casas Juan AGUILERA on 12/03/21. No malignancy or atypical cells. 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, last seen in Mar 2024, patient was prescribed Wixela but does not have currently - continue umeclidinium (Incruse) - restart SMART with budesonide / formoterol (Symbicort) - continue albuterol PRN - continue working on smoking cessation - advised to reschedule chest CT, given number to call Assessment & Plan (09/13/2024 11:53 AM EST): - 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 see team truck driver, last seen in Mar 2024, patient was [...] BERT DAVIES - 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 see team truck driver, last seen in JUN 2022, patient was prescribed Symbicort but does not have currently - will restart Symbicort and will start incruse - continue albuterol PRN - continue working on smoking cessation - will order lung cancer screening chest CT Assessment & Plan (09/08/2024 6:15 PM EST): >>ASSESSMENT AND PLAN FOR CHRONIC OBSTRUCTIVE PULMONARY DISEASE ([facility]) WRITTEN ON 04/26/2024 2:40 PM BY VINCE MANCILLA - 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 Assessment & Plan (12/25/2024 6:50 AM EDT): No major complaints only shoulder pain for which has planned surgery in 01/2025 Assessment & Plan (09/09/2024 10:08 AM EST): [...] Encounters Date Type Department Care Team Description 12/27/2024 Results Follow-Up [address] [place] [address] Sandy Avelar MD T-SPOT .TB, PSA,Total 12/26/[address] [address] Leigh Bonilla [place] fyi 12/24/2024 9:15 AM EDT Office Visit [facility] [address] Sandy Avelar MD Tuberculosis screening (Primary Dx); Health care maintenance; Tobacco dependence; Chronic left shoulder pain; Memory impairment; Asthma-COPD overlap syndrome (CMS/HCC); Strain of rotator cuff of both shoulders 12/24/2024 Orders Only [facility] [place] [address] Pauly Sánchez MD 12/24/[address] [phone] Sandy Avelar MD Appointment Request (Appointment Request for Lung Cancer Screening) 12/24/2024 Travel 12/18/2024 10:15 AM EDT Office Visit [facility] [address] Pauly Sánchez MD Chronic left shoulder pain (Primary Dx); Preop examination; Asthma-COPD overlap syndrome (CMS/HCC); Tobacco dependence; Heartburn; Methadone dependence (CMS/HCC) 12/18/2024 Travel 12/17/2024 Telephone [facility] [place] [address] Pauly Sánchez MD Chart Prep 12/13/[address] [phone] Pauly Sánchez MD Lab Orders (/) 11/09/2024 Refill [facility] [address] [place] [address] Pauly Sánchez MD Chronic obstructive pulmonary disease, unspecified COPD type (CMS/HCC) 10/10/2024 Telephone [facility] [address] [facility] [address] Pauly Sánchez MD Appointment Request from Last 3 Months Immunizations Immunization Administration Dates Next Due Influenza High-dose Quadrivalent Preservative Fr ee 07/30/2020 Influenza Quadrivalent Adjuvanted 04/07/2023 Influenza injectable quadrivalent preservative f ree 06/17/2019 Influenza, High Dose Seasonal, Preservative Free 04/22/2024 Pfizer Covid-19 Vaccine 12+ 04/22/2024, Pneumococcal Conjugate PCV 20 01/16/2024 RSV Bivalent 12/27/2024 Tdap 01/16/2024 Zoster, Recombinant 12/27/2024 Family History Medical History Relation Name Comments DM2 Brother Esophageal cancer Father Relation Name Status Comments Brother Father Social History Tobacco Use Types Packs/Day Years Used Date Smoking Tobacco: Some Days Cigarettes 0.3 54 Passive Smoke Exposure: Current Smokeless Tobacco: Never Tobacco Cessation:Ready to Q uit: Not Asked; Counseling Given: Not Answered Comments:Started 14 y of age ,until now, stopped before for 7 years,so total of 48 y 10 cig a day in average -now 3-5 Alcohol Use Standard Drinks/Week Comments Not Currently 0 (1 standard drink = 0.6 oz [...] 91 12/24/2024 9:16 AM EDT Temperature 36.3 C (97.3 F) 12/24/2024 9:16 AM EDT Respiratory Rate 20 12/24/2024 9:16 AM EDT Oxygen Saturation 97% 12/24/2024 9:16 AM EDT Inhaled Oxygen Concentration - - Weight 55.8 kg (123 lb) 12/24/2024 9:16 AM EDT Height 167.6 cm (5' 6 ) 12/24/2024 9:16 AM EDT Body Mass Index 19.85 12/24/2024 9:16 AM EDT Plan of Treatment Upcoming Encounters Date Type Department Care Team (Late st Contact Info) Description 02/26/2025 2:00 PM EDT Nurse Only [facility] [address] [place] [phone] 03/19/2025 2:00 PM EDT Clinical Support [facility] [address] [place] [phone] Health Maintenance Due Date Last Done Comments CT Colonography 1955 FIT DNA/Cologuard 1955 FIT 1955 FOBT 1955 Sigmoidoscopy 1955 COVID-19 Vaccine ( season) 2024 04/22/2024, 01/16/2024, 03/31/2021, Additional history exists SDOH Screening 01/15/2025 01/16/2024 Zoster Vaccines (2 of 2) 02/21/2025 12/27/2024 Alcohol/Substance Use Screening 04/22/2025 04/22/2024 Depression Screening 09/09/2025 09/09/2024, 09/09/19 Tobacco Screening 12/24/2025 12/24/2024 Lipid Panel 04/22/2029 04/22/2024, 02/04/2021 Colonoscopy 12/04/2031 12/03/2021 Colorectal Cancer Screening 12/04/2031 DTaP/Tdap/Td Vaccines (2 - Td or Tdap) 01/15/2034 01/16/2024 Pneumococcal Vaccine: 50+ Years Completed 01/16/2024 Hepatitis C Screening Completed 04/22/2024, 021 Influenza Vaccine Completed 04/22/2024, , 07/30/2020, Additional history exists RSV Patients and Patients Aged 60 years or older Completed 12/27/2024 HIB Vaccines Aged Out No longer eligi [...] Procedure Name Priority Date/Time Associated Diagnosis Comments ECG 12-LEAD Routine 12/25/2024 9:36 AM EDT Preop examination BASIC METABOLIC PANEL Routine 12/24/2024 10:22 AM EDT PSA, TOTAL Routine 12/24/2024 10:22 AM EDT Health care maintenance T-SPOT(R).TB Routine 12/24/2024 10:22 AM EDT Tuberculosis screening CBC WITH AUTO DIFFERENTIAL Routine 12/24/2024 8:53 AM EDT Chronic left shoulder pain BASIC METABOLIC PANEL Routine 12/24/2024 8:53 AM EDT Chronic left shoulder pain BASIC METABOLIC PANEL Routine 12/24/2024 8:53 AM EDT Hyperkalemia HEPATITIS C AB W/REFL TO HCV RNA, QN, PCR Routine 04/22/2024 11:27 AM EDT Routine screening for STI (sexually transmitted infection) LIPID PANEL WITH REFLEX TO DIRECT LDL Routine 04/22/2024 11:27 AM EDT Screening for lipid disorders [facility] COLONOSCOPY Routine 12/03/2021 from Last 3 Months or Most Recently Relevant to Health Maintenance Results * ECG 12 lead (12/25/2024 9:36 AM EDT) Narrative Pauly Sánchez MD - 12/25/2024 9:36 AM EDT Rate 57, sinus, normal intervals, QTc 413 ms, normal axis, flat T-wave on V1, inverted T-wave in V2. No hypertrophy. us Pauly Sánchez MD ECG ORDERABLES Final Result * T-SPOT??.TB (12/24/2024 10:22 AM EDT) [facility] T Spot TB Negative Negative [facility] Comment:A negative test resu lt does not exclude the possibilityof exposure to or infection with Mycobacteriumtuberculosis (M. tuberculosis). Patients with recentexposure to TB infected individuals exhibiting anegative T-SPOT.TB result should be considered forretesting within 6 weeks or if other relevant clinicalsymptoms indicate. Results from T-SPOT.TB testing mustbe used in conjunction with each individual'sepidemiological history, current medical status,and results of other diagnostic evaluations.The T-SPOT.TB test is qualitative and results arereported as positive, borderline, or negative, giventhat the test controls perform as expected. In linewith the Centers for Disease Control and Prevention's2010 recommendation to report quantitative measurementsalongside the qualitative result, the laboratoryprovides spot counts for informational purposes only.The T-SPOT.TB test should not be interpreted as aquantitative test. TS PANEL A 1 [facility] TS PANEL B 1 [facility] Negative Control Passed [facility] Positive Control Passed [facility] Comment:For additional infor joao, please refer tohttp://education.[employer]/faq/BVT740(This link is being provided for informational/educational purposes only.)REPORT COMMENT:REC'D IN CHYTHIS TEST WAS PERFORMED AT:[id number] [place] [id number] PRITCHARD MD,PHD 12/24/2024 10:2 2 AM EDT 12/24/2024 11:16 AM EDT Sandy Sommer MD LAB BLOOD ORDERAB LES Final Result [facility] [address] [place] [phone] * PSA,Total (12/24/2024 10:22 AM EDT) Prostate Specific Antigen 0.51 <0.05 - 4.0 ng/mL [facility] Comment:PSA methodology: Abb gia Alinusrat i ChemiluminescentMicroparticle Immunoassay (CMIA) Blood Venous blood specimen / Unknown 12/24/2024 10:22 AM EDT 12/24/2024 11:16 AM EDT us Sandy Sommer MD LAB BLOOD ORDERAB LES Final Result Performing Organization Address [facility] Co de Phone Number [facility] [address] [place] [phone] * (ABNORMAL) Basic Metabolic Panel (12/24/2024 10:22 AM EDT) Only the most recent of3 resultswithin the time period is included. Pathologist [facility] Sodium 141 135 - 145 mmol/L [facility] Potassium 4.5 3.3 - 5.1 mmol/L [facility] Chloride 105 96 - 108 mmol/L [facility] Carbon Dioxide 29 22 - 29 mmol/L [facility] Anion Gap 12 12 - 20 [facility] Urea Nitrogen (BUN) 20(H) 9 - 16 mg/dL [facility] Creatinine, Serum 0.95 0.5 - 1.4 mg/dL [facility] Estimated Glomerular Filt Rate >60 [facility] Comment:Chronic Kidney Disea se: Estimated GFR < 60 mL/min/[id number] Kidney Disease: Estimated GFR < 15 mL/min/1.73m2 Glucose 87 60 - 115 mg/dL [facility] Calcium 9.7 8.4 - 10.2 mg/dL [facility] 12/24/2024 10:2 2 AM EDT 12/24/2024 11:16 AM EDT us Pauly Sánchez MD LAB BLOOD ORDERABLES Final Resul t Performing Organization Address [facility]/ZIP Co de Phone Number [facility] [address] [place] [phone] * (ABNORMAL) CBC auto differential (12/24/2024 8:53 AM EDT) White Blood Count 5.1 4.8 - 10.8 X10*3/uL [facility] Red Blood Count 4.82 4.60 - 5.80 X10*6/uL [facility] Hemoglobin 13.9(L) 14.0 - 18.0 g/dl [facility] Hematocrit 44.0 42.0 - 52.0 % [facility] Mean Corpuscular Volume 91.3 80.0 - 98.0 fL [facility] Mean Corpuscular Hemoglobin 28.8 27.0 - 33.0 pg [facility] Mean Corpuscular HGB Conc 31.6 31.0 - 36.0 g/dl [facility] Red Cell Distribution Width 12.0 11.0 - 16.0 % [facility] Platelet Count 220 160 - 400 X10*3/uL [facility] Mean Platelet Volume 11.6 9.4 - 12.4 fL [facility] Neutrophils Percent Auto 52.5 45 - 73 % [facility] Imm Gran Pct Auto 0.2 0.0 - 0.4 % [facility] Lymphocytes Percent Auto 33.9 20 - 40 % [facility] Monocytes Percent Auto 8.3 2 - 11 % [facility] Eosinophils Percent Auto 4.3(H) 0 - 4 % [facility] Basophils Percent Auto 0.8 0 - 2 % [facility] NRBC Pct Auto 0.0 0.0 - 0.2 /100WBC [facility] Neutrophils Absolute Auto 2.7 2.0 - 8.3 x10*3/uL [facility] Imm Gran Abs Auto 0.01 0.00 - 0.03 X10*3/uL [facility] Lymphocytes Absolute Auto 1.7 1.2 - 4.9 X10*3/uL [facility] Monocytes Absolute Auto 0.4 0.1 - 1.2 X10*3/uL [facility] Eosinophils Absolute Auto 0.2 0.0 - 0.4 X10*3/uL [facility] Basophils Absolute Auto 0.0 0.0 - 0.2 X10*3/uL [facility] NRBC Abs Auto 0.000 0.0 - 0.012 X10*3/uL [facility] Blood Venous blood specimen / Unknown 12/24/2024 8:53 AM EDT 12/24/2024 11:16 AM EDT Pauly Sánchez MD LAB BLOOD ORDERABLES Final Resul t Performing Organization Address [facility] Co de Phone Number [facility] [address] [place] [address] [phone] * Lipid Panel with Reflex to Direct LDL (04/22/2024 11:27 AM EDT) Triglycerides 31 <150 mg/dL [facility] Comment:Desirable Triglyceri de: less than 150 mg/dLBorderline High Triglyceride 150-199 mg/dLHigh Triglyceride: 200-499 mg/dLVery High Triglyceride: greater than or equal to 5OO mg/dL Cholesterol 170 <200 mg/dL [facility] Comment:Desirable Cholestero l: less than 200 mg/dLBorderline High Cholesterol: 200-239 mg/dLHigh Cholesterol: greater than 239 mg/dL LDL Cholesterol Calculated 69 <100 mg/dL [facility] Comment:Desirable LDL: less than 100 mg/dLNear Optimal/Above Optimal LDL: 110- 129 mg/dLBorderline High LDL: 130-159 mg/dLHigh LDL: 160-189 mg/dLVery High LDL: greater than or equal to 190 mg/dL HDL Cholesterol 95 >40 mg/dL [facility] Comment:Desirable HDL: great er than 40 mg/dL Note: This HDL assay may give artificially low results in patients with liver disease. Blood 04/22/2024 11:2 7 AM EDT 04/22/2024 1:13 PM EDT Pauly Sánchez MD LAB BLOOD ORDERABLES Final Resul t Performing Organization Address [facility]/ZIP Co de Phone Number [facility] [address] [place] [address] [phone] * Hepatitis C Antibody with Reflex to HCV, RNA, Quantitative, Real-Time PCR (04/22/2024 11:27 AM EDT) Hepatitis C Antibody Nonreactive Nonreactive [facility] Comment:Antibodies to HCV no t detected; does not exclude early acuteHCV infection. Blood Venous blood specimen / Unknown 04/22/2024 11:27 AM EDT 04/22/2024 1:13 PM EDT Pauly Sánchez MD LAB BLOOD ORDERABLES Final Resul t [facility] [address] [place] [phone] [phone] * Hm Colonoscopy (12/03/2021) Colonoscopy Normal Normal 12/03/2021 us Historical Provider HEALTH MAINTENANCE Final Result from Last 3 Months or Most Recently Relevant to Health Maintenance Insurance [facility] [employer] MEDICARE REPLACEMENT Care Teams Multi Skilled Operator Relationship Specialty Start Date End Date Pauly Sánchez MD [address] [place] [phone] PCP - General Family Medicine 01/08/24
== END 2025-01-02 16:19 | disposition home or self-care (01) ==
PROVIDERS: PCP Family Medicine; Visit Provider Internal Medicine
DX: J44.9 Chronic obstructive pulmonary disease, unspecified (principal); Z87.891 Personal history of nicotine dependence
CPT/HCPCS: 94010; 99214

== ENCOUNTER → 2025-01-02 15:37 | Outpatient (BNVA) | payer MEDICARE, SELFPAY | PROVIDERS: PCP Family Medicine; Visit Provider Internal Medicine | DX: Z01.818 Encounter for other preprocedural examination (principal); J44.9 Chronic obstructive pulmonary disease, unspecified; Z87.891 Personal history of nicotine dependence | CPT/HCPCS: 94010; 99212 ==

== ENCOUNTER 2025-01-23 09:11 | Outpatient (AMB) | payer MEDICARE, SELFPAY ==
[2025-01-23 09:35] VITALS: BP 114/64; PULSE 67; O2SAT 96; BMI 20.2
--- NOTE | 2025-01-23 09:35 | MHC.OFFVIS ---
Vital Signs 01/23/25 09:35 Height 5 ft 6 in Weight 125 lb BMI 20.2 BP 114/64 Blood Pressure Location Lt brachial Position Sitting Pulse 67 Pulse Oximetry (%) 96 Oxygen Delivery Method Room Air Handedness Left Intake Visit Reasons: Preop LT RTC repair 01/29/25 NE Intake Note: Leon is a 69 year old left hand dominant male who presents today for a pre op appointment for his left shoulder rotator cuff repair 01/29/25 NE. Patient was given pain management form, pendulum exercises and RTC repair protocols. Patient was fitted for her ultra sling w/ pillow. Allergies No Known Allergies (No Known Allergies*) Allergy (Verified 01/23/25 09:36) HPI HPI Preop LT RTC repair 01/29/25 NE: Details: Mr. Toan Howard is a 69-year-old male who presents to the office today for his history and physical examination preoperatively pending left shoulder rotator cuff repair on 01/29/[address] Graham. [facility] Medical History Methadone use Hepatitis Memory impairment Asthma-COPD overlap syndrome Personal history of nicotine dependence Arthritis Shoulder pain, bilateral Mood disorder Inguinal hernia Dizziness Heartburn Vitamin D deficiency Anxiety Surgical History History of right inguinal hernia repair (~03/05/24) Hx of hemorrhoidectomy Hx of removal of cyst Hx of colonoscopy History of esophagogastroduodenoscopy (EGD) Family History Father Cancer Father Cancer Other HTN (hypertension) Social History Are you a primary care navigator to a significant other at home: No Do you presently have visiting nurse or other home services: No Comment: counts correct Patient Tobacco Use Status: Current everyday Tobacco user Tobacco use type: Cigarette Cigarette Packs Per Day: 0.25 Cigarettes Per Day: 3 Years Smoked: 53 Review of Systems Const All systems reviewed & are unremarkable except as noted in HPI and below Physical Exam Vital Signs: Last Vital Signs Pulse 67 01/23/25 09:35 BP 114/64 01/23/25 09:35 Pulse Ox 96 01/23/25 09:35 Oxygen Delivery Method Room Air 01/23/25 09:35 BMI result Body Mass Index 20.2 Extrem Other: Left shoulder with 4/5 strength on empty can testing. 45/90/140/T10 patient she play see fracture and c5- 7 degenerative disc disease Assessment & Plan Assessment & Plan (1) Rotator cuff tear, left: Code(s): M75.102 - Unspecified rotator cuff tear or rupture of left shoulder, not specified as traumatic Category: Medical Plan I discussed in detail the procedure and what to expect pre and post operatively. We discussed the risks, benefits and alternatives to the surgery and the rehabilitation course. The risks include infection, bleeding, nerve injury, ongoing pain, swelling, and stiffness, perioperative risk of injury to bones and soft tissues, and blood clots. I have answered all questions and with their understanding they have consented to move forward with a left shoulder rotator cuff repair to be performed on 01/29/[address] Graham. Of note, the patient is on methadone 35 mg p.o. QHS. He will continue taking this as usual without disruption. Additionally, the patient was fit for an ultra sling while in the office today that will be brought to the OR on the day of surgery. Follow-up will be at the post operative appointment on 02/06/2025, or sooner if needed. Physical therapy prescription has been placed while in the office today. The patient was also given the physical therapy business card so he can reach out to make an appointment within 1 week status post left shoulder rotator cuff repair. Additionally, I did send a prescription for oxycodone-acetaminophen 5-325 mg to be taken p.o. q.4-6 hours PRN pain #42 [place] [facility] [place] to the [place]U on the day of surgery. Orders: Orders PT Evaluation and Treatment Today Z98.890 - Other specified postprocedural states Medications: New oxycodone-acetaminophen 5-325 mg Partial Fill upon patient request. Please fill and bring to PACU on the day of surgery 01/29/25. Thank you 1 tab PO Q4-6H PRN 42 tabs 0RF pain 7 days Coding Level of Care Code Global (84282) Diagnoses Rotator cuff tear, left M75.102
--- OUTSIDE RECORDS SUMMARY | 2025-01-23 09:37 | XMS_ITS | Clinical Summary ---
Author Organization [employer] Address [address] [place] [address] [address] [place] [address] Care Team Providers Care Interventional Pain Physician Name Role Phone Pauly Sánchez MD Primary Care Provider [phone] Allergies No known active allergies Medications acetaminophen [...] g 3 5 09/09/19 26 Active Umeclidinium Foss (Incruse Ellipta) 62.5 MCG/ACT aerosol powder Inhale [...] acromioclavicular osteoarthritis. - seen by Dr. Graham, [facility] on 02/16/24 - patient has tried [...] AM EDT): - 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 see ultrasound applications specialist, last seen in Mar 2024, patient was prescribed Wixela but does not have currently - continue umeclidinium (Incruse) - restart SMART with budesonide / formoterol (Symbicort) - continue albuterol PRN - continue working on smoking cessation - advised to reschedule chest CT, given number to call Assessment & Plan (09/13/2024 11:53 AM EST): - 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 see ultrasound applications specialist, last seen in Mar 2024, patient was [...] BERT DAVIES - 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 see ultrasound applications specialist, last seen in JUN 2022, patient was prescribed Symbicort but does not have currently - will restart Symbicort and will start incruse - continue albuterol PRN - continue working on smoking cessation - will order lung cancer screening chest CT Assessment & Plan (09/08/2024 6:15 PM EST): >>ASSESSMENT AND PLAN FOR CHRONIC OBSTRUCTIVE PULMONARY DISEASE ([facility]) WRITTEN ON 04/26/2024 2:40 PM BY VINCE MANCILLA - 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 see ultrasound applications specialist, last seen in JUN 2022, patient was prescribed Symbicort but does not have currently - continue Symbicort and Incruse - continue albuterol PRN - continue working on smoking cessation - advised to reschedule chest CT, given number to call Assessment & Plan (09/08/2024 6:15 PM EST): >>ASSESSMENT AND PLAN FOR CHRONIC OBSTRUCTIVE PULMONARY DISEASE ([facility]) WRITTEN ON 07/18/2024 5:32 AM BY PAULY SÁNCHEZ MD - 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 see ultrasound applications specialist, last seen in JUN 2022, patient was [...] Department Care Team Description 12/27/2024 Results Follow-Up [address] [place] [address] Sandy Avelar MD T-SPOT .TB, PSA,Total 12/26/[address] [address] Leigh Bonilla [place] fyi 12/24/2024 9:15 AM EDT Office Visit [facility] [place] [address] Sandy Avelar MD Tuberculosis screening (Primary Dx); Health care maintenance; Tobacco dependence; Chronic left shoulder pain; Memory impairment; Asthma-COPD overlap syndrome (CMS/HCC); Strain of rotator cuff of both shoulders 12/24/2024 Orders Only [facility] [place] [address] Pauly Sánchez MD 12/24/[address] [address] Sandy Avelar MD Appointment Request (Appointment Request for Lung Cancer Screening) 12/24/2024 Travel 12/18/2024 10:15 AM EDT Office [facility] [place] [address] Pauly Sánchez MD Chronic left shoulder pain (Primary Dx); Preop examination; Asthma-COPD overlap syndrome (CMS/HCC); Tobacco dependence; Heartburn; Methadone dependence (CMS/HCC) 12/18/2024 Travel 12/17/2024 Telephone [facility] [place] [address] Pauly Sánchez MD Chart Prep 12/13/[address] [phone] Pauly Sánchez MD Lab Orders (/) 11/09/2024 Refill [facility] [address] [place] [address] Pauly Sánchez MD Chronic obstructive pulmonary disease, unspecified COPD type (CMS/HCC) from Last 3 Months Immunizations Immunization Administration [...] Description 02/26/2025 2:00 PM EDT Nurse Only [facility] [address] [place] [phone] 03/19/2025 2:00 PM EDT Clinical Support [facility] [address] [place] [phone] Health Maintenance Due Date Last Done Comments CT Colonography 1955 FIT DNA/Cologuard 1955 FIT 1955 FOBT 1955 Sigmoidoscopy 1955 COVID-19 Vaccine (5 - 2024-25 season) 2024 04/22/2024, 01/16/2024, 03/31/2021, Additional history exists SDOH Screening 01/15/2025 01/16/2024 Zoster Vaccines (2 of 2) 02/21/2025 12/27/2024 Influenza Vaccine (#1) 2025 , 04/07/2023, 07/30/2020, Additional history exists Alcohol/Substance Use Screening 04/22/2025 04/22/2024 Depression Screening 09/09/2025 09/09/2024, 09/09/19 Tobacco Screening 12/24/2025 12/24/2024 Lipid Panel 04/22/2029 04/22/2024, 02/04/2021 Colonoscopy 12/04/2031 12/03/2021 Colorectal Cancer Screening 12/04/2031 DTaP/Tdap/Td Vaccines (2 - Td or Tdap) 01/15/2034 01/16/2024 Pneumococcal Vaccine: 50+ Years Completed 01/16/2024 Hepatitis C Screening Completed 04/22/2024, 021 RSV Patients and Patients Aged 60 years [...] T-wave in V2. No hypertrophy. us Pauly Sácnhez MD ECG ORDERABLES Final Result * T-SPOT??.TB (12/24/2024 10:22 AM EDT) [facility] T Spot TB Negative Negative [facility] Comment:A negative test resu [...] as aquantitative test. TS PANEL A 1 [facility] TS PANEL B 1 [facility] Negative Control Passed [facility] Positive Control Passed [facility] Comment:For additional infor joao, please refer [email or web address]/[email or web address](This link is being provided for informational/educational purposes only.)REPORT COMMENT:REC'D IN YTHIS TEST WAS PERFORMED AT:[employer] [id number] [place] [id number] PRITCHARD MD,PHD 12/24/2024 10:2 2 AM EDT 12/24/2024 11:16 AM EDT us Sandy Sommer MD LAB BLOOD ORDERAB LES Final Result [facility] [address] [place] [phone] * PSA,Total (12/24/2024 10:22 AM EDT) Prostate Specific Antigen 0.51 <0.05 - 4.0 ng/mL [facility] Comment:PSA methodology: Heather nielsen Alinusrat i ChemiluminescentMicroparticle Immunoassay (CMIA) Blood Venous blood specimen / Unknown 12/24/2024 10:22 AM EDT 12/24/2024 11:16 AM EDT us Sandy Sommer MD LAB BLOOD ORDERAB LES Final Result Performing Organization Address [facility] Co de Phone Number [facility] [address] [place] [address] [phone] * (ABNORMAL) Basic Metabolic Panel (12/24/2024 10:22 AM EDT) Only the most recent of3 resultswithin the time period is included. [facility] Sodium 141 135 - 145 mmol/L [facility] Potassium 4.5 3.3 - 5.1 mmol/L [facility] Chloride 105 96 - 108 mmol/L [facility] Carbon Dioxide 29 22 - 29 mmol/L [facility] Anion Gap 12 12 - 20 [facility] Urea Nitrogen (BUN) 20(H) 9 - 16 mg/dL [facility] Creatinine, Serum 0.95 0.5 - 1.4 mg/dL [facility] Estimated Glomerular Filt Rate >60 [facility] Comment:Chronic Kidney Disea se: Estimated GFR < 60 mL/min/1.74x9Ymobav Kidney Disease: Estimated GFR < 15 mL/min/1.73m2 Glucose 87 60 - 115 mg/dL [facility] Calcium 9.7 8.4 - 10.2 mg/dL [facility] 12/24/2024 10:2 2 AM EDT 12/24/2024 11:16 AM EDT us Pauly Sánchez MD LAB BLOOD ORDERABLES Final Resul t [facility] [address] [place] [address] [phone] * (ABNORMAL) CBC auto differential (12/24/2024 8:53 AM EDT) [facility] White Blood Count 5.1 4.8 - 10.8 X10*3/uL [facility] Red Blood Count 4.82 4.60 - 5.80 X10*6/uL [facility] Hemoglobin 13.9(L) 14.0 - 18.0 g/dl [facility] Hematocrit 44.0 42.0 - 52.0 % [facility] Mean Corpuscular Volume 91.3 80.0 - 98.0 fL [facility] Mean Corpuscular Hemoglobin 28.8 27.0 - 33.0 pg [facility] Mean Corpuscular HGB Conc 31.6 31.0 - 36.0 g/dl [facility] Red Cell Distribution Width 12.0 11.0 - 16.0 % [facility] Platelet Count 220 160 - 400 X10*3/uL [facility] Mean Platelet Volume 11.6 9.4 - 12.4 fL [facility] Neutrophils Percent Auto 52.5 45 - 73 % [facility] Imm Gran Pct Auto 0.2 0.0 - 0.4 % [facility] Lymphocytes Percent Auto 33.9 20 - 40 % [facility] Monocytes Percent Auto 8.3 2 - 11 % [facility] Eosinophils Percent Auto 4.3(H) 0 - 4 % [facility] Basophils Percent Auto 0.8 0 - 2 % [facility] NRBC Pct Auto 0.0 0.0 - 0.2 /100WBC [facility] Neutrophils Absolute Auto 2.7 2.0 - 8.3 x10*3/uL [facility] Imm Gran Abs Auto 0.01 0.00 - 0.03 X10*3/uL [facility] Lymphocytes Absolute Auto 1.7 1.2 - 4.9 X10*3/uL [facility] Monocytes Absolute Auto 0.4 0.1 - 1.2 X10*3/uL [facility] Eosinophils Absolute Auto 0.2 0.0 - 0.4 X10*3/uL [facility] Basophils Absolute Auto 0.0 0.0 - 0.2 X10*3/uL [facility] NRBC Abs Auto 0.000 0.0 - 0.012 X10*3/uL [facility] Blood Venous blood specimen / Unknown 12/24/2024 8:53 AM EDT 12/24/2024 11:16 AM EDT Pauly Sánchez MD LAB BLOOD ORDERABLES Final Resul t Performing Organization Address [facility] Co de Phone Number [facility] [address] [place] [phone] * Lipid Panel with Reflex to Direct LDL (04/22/2024 11:27 AM EDT) Triglycerides 31 <150 mg/dL [facility] Comment:Desirable Triglyceri de: less than 150 mg/dLBorderline High Triglyceride 150-199 mg/dLHigh Triglyceride: 200-499 mg/dLVery High Triglyceride: greater than or equal to 5OO mg/dL Cholesterol 170 <200 mg/dL [facility] Comment:Desirable Cholestero l: less than 200 mg/dLBorderline High Cholesterol: 200-239 mg/dLHigh Cholesterol: greater than 239 mg/dL LDL Cholesterol Calculated 69 <100 mg/dL [facility] Comment:Desirable LDL: less than 100 mg/dLNear Optimal/Above Optimal LDL: 110- 129 mg/dLBorderline High LDL: 130-159 mg/dLHigh LDL: 160-189 mg/dLVery High LDL: greater than or equal to 190 mg/dL HDL Cholesterol 95 >40 mg/dL [facility] Comment:Desirable HDL: great er than 40 mg/dL Note: This HDL assay may give artificially low results in patients with liver disease. Blood 04/22/2024 11:2 7 AM EDT 04/22/2024 1:13 PM EDT Pauly Sánchez MD LAB BLOOD ORDERABLES Final Resul t Performing Organization Address [facility] Co de Phone Number [facility] [address] [place] [phone] * Hepatitis C Antibody with Reflex to HCV, RNA, Quantitative, Real-Time PCR (04/22/2024 11:27 AM EDT) Hepatitis C Antibody Nonreactive Nonreactive [facility] Comment:Antibodies to HCV no t detected; does not exclude early acuteHCV infection. Blood Venous blood specimen / Unknown 04/22/2024 11:27 AM EDT 04/22/2024 1:13 PM EDT Pauly Sánchez MD LAB BLOOD ORDERABLES Final Resul t [facility] [address] [place] [phone] [phone] * Colonoscopy (12/03/2021) Colonoscopy Normal Normal 12/03/2021 Shayy Provider HEALTH MAINTENANCE Final Result from Last 3 Months or Most Recently Relevant to Health Maintenance Insurance [facility] [employer] MEDICARE REPLACEMENT Care Teams Interventional Pain Physician Relationship Specialty Start Date End Date Pauly Sánchez MD [address] [place] [phone] PCP - General Family Medicine 01/08/24
== END 2025-01-23 09:50 | disposition home or self-care (01) ==
LOC: HO.HOS 09:12
PROVIDERS: PCP Family Medicine; Visit Provider Physician Assistant
DX: M75.102 Unspecified rotator cuff tear or rupture of left shoulder, not specified as traumatic (principal)
CPT/HCPCS: 99024

== ENCOUNTER → 2025-01-23 09:11 | Outpatient (BNVA) | payer MEDICARE, SELFPAY | PROVIDERS: PCP Family Medicine; Visit Provider Physician Assistant | DX: Z01.818 Encounter for other preprocedural examination (principal); M75.102 Unspecified rotator cuff tear or rupture of left shoulder, not specified as traumatic | CPT/HCPCS: 99212 ==

== ENCOUNTER 2025-01-29 06:50 | Day surgery (SDC) | payer MEDICARE, OTHER, SELFPAY ==
[2025-01-24 12:48] VITALS: BMI 20.2
[2025-01-29] VITALS (8 sets, daily range): BP systolic 95–120; BP diastolic 57–100; PULSE 60–89; RESP 16; TEMP 36.4; O2SAT 96–100; BMI 20.1
--- NOTE | 2025-01-29 07:21 | MHC.SHP ---
Pre-Procedural Eval Section A - 24 Hr Update-Section A only Date of Service: 01/29/25 The patient is an INPATIENT: No Changes since office visit: No Cold of Flu in the past 2 weeks, No New Medical Problems, No Changes in Medication and No Patient answered all questions The patient has been examined within 24 hours of the surgical procedure. The History & Physical has been completed within 30 days and I have reviewed it.: Yes Section B - Complete if H&P > 30 days Chief Complaint: Unspecified rotator cuff tear or rupture of left Allergies: Allergies Allergy/AdvReac Type Severity Reaction Status Date / Time No Known Allergies (No Known Allergy Verified 01/23/25 09:36 Allergies*) Plan I have reviewed the history and physical and performed a pertinent physical examination on my patient. No changes have occurred unless specified. Time Spent With Patient Time: Total time managing care of this patient today ____ minutes.
[2025-01-29] MEDS: Lactated Ringers 1,000 ML 100 ML IVCONT (07:40)
--- NOTE | 2025-01-29 08:17 | HO.ANESPROP2 ---
HPI - Anesthesia Eval Consult details Narrative: rotator cuff PMFSH Active Problems Active Problems: All Active Problems Status post left rotator cuff repair (Acute) Rotator cuff tear, left (Acute) Internal derangement of shoulder (Acute) Personal history of nicotine dependence (Acute) Impingement of both shoulders (Acute) Impingement syndrome of right shoulder (Acute) Chronic periscapular pain (Acute) Right inguinal hernia (Acute) Diverticulosis of colon (Acute) Cancer phobia (Acute) Dyspepsia (Acute) Asthma-COPD overlap syndrome (Acute) Methadone use (Acute) Past Medical History Medical History Methadone use Hepatitis Memory impairment Asthma-COPD overlap syndrome Personal history of nicotine dependence Arthritis Shoulder pain, bilateral Mood disorder Inguinal hernia Dizziness Heartburn Vitamin D deficiency Anxiety Family History Family History Father Cancer Father Cancer Other HTN (hypertension) Family history of problems with anesthesia: No Surgical History Surgical History History of right inguinal hernia repair (~03/05/24) Hx of hemorrhoidectomy Hx of removal of cyst Hx of colonoscopy History of esophagogastroduodenoscopy (EGD) History of Problems with Anesthesia: No Social History Social History Are you a primary behavioral health care manager to a significant other at home: No Do you presently have visiting nurse or other home services: No Comment: counts correct Patient Tobacco Use Status: Current everyday Tobacco user Tobacco use type: Cigarette Cigarette Packs Per Day: 0.25 Cigarettes Per Day: 3 Years Smoked: 53 Use of substances other than those prescribed or required for medical reasons: No Advance Directives: No Advance Directives Information Provided: Yes Meds Allergies Allergy/AdvReac Type Severity Reaction Status Date / Time No Known Allergies (No Known Allergy Verified 01/23/25 09:36 Allergies*) Active Medications: Current Medications Lactated Ringer's (Lr) 1,000 mls @ 100 mls/hr IVCONT .Q10H BELEN Last Admin: 01/29/25 07:40 Dose: 100 mls/hr Home Medications ?Medication ?Instructions ?Recorded ?Confirmed ?Last Taken ?Type albuterol sulfate 90 mcg/actuation 2 puff inhalation Q6H PRN 07/13/22 02/22/24 Unknown History aerosol inhaler Shortness Of Breath Or Wheezing famotidine 40 mg tablet 40 mg PO DAILY PRN Heartburn 07/13/22 02/22/24 Unknown History fluticasone 250 mcg-salmeterol 50 1 inh inhalation DAILY asthma/copd 02/22/24 02/22/24 03/05/24 04:00 History mcg/dose blistr powdr for inhalation (Wixela Inhub) methadone 45 mg PO 1XD 02/22/24 02/22/24 01/29/25 01:00 History cyanocobalamin (vitamin B-12) 500 500 mcg PO DAILY PRN 01/02/25 Unknown History mcg tablet (Vitamin B-12) Exam Height,Weight and Vital Signs: Height 5 ft 6 in Weight 56.5 kg Last Vital Signs Temp 97.6 F 01/29/25 07:19 Pulse 60 01/29/25 07:19 Resp 16 01/29/25 07:19 BP 100/57 L 01/29/25 07:19 Pulse Ox 98 01/29/25 07:19 O2 Del Method Room Air 01/29/25 07:19 Airway Mallampati Class: II TM Dist: >3cm Neck ROM: Limited Heart: rrr Lungs: cta Assessment and Plan Assessment Anesthesia Assessment: Anesthesia Plan Discussed Final Anesthetic Review Family History of Problems with Anesthesia: No History of Problems with Anesthesia: No NPO: Yes ASA Class: III Final Preanesthetic Review: No Changes in Pt Med Stat, Meds/Allgs Chart Reviewed, Consent Obtained/Reviewed and Anes Risks/Benef Reviewed Patient Risk: Intermediate Procedure Risk: Intermediate Anesthetic Plan Anesthetic Plan: GA, Regional Block and Agree w/ Assess. and Plan Disposition: Standard PACU
--- NOTE | 2025-01-29 11:36 | P.BOP_ITS ---
Brief Operative Note Date of Service: 01/29/25 Pre-op diagnosis: Left RTC tear Post-op diagnosis: same Procedure: Left RTC repair with biceps tenotomy Implants: S&N 4.75 double loaded Helacoil and 2 5.5 knotless Helacoil Regeneten collagen bio-inductive patch, large Surgeon: Anup Graham MD Anesthesia: GETA and regional Was an Box Blank Machine Feeder used for this Procedure?: Yes Box Blank Machine Feeder: Rayne Gibson Estimated blood loss (mL): 25 IV fluids (mL): 800 Pathology: none sent Condition: stable Disposition: PACU
--- NOTE | 2025-01-31 11:19 | P.OP_ITS ---
Operative Note Operative Note Date of Service: 01/29/25 Narrative: Date of Service: 01/29/25 Pre-op diagnosis: Left RTC tear Post-op diagnosis: same Procedure: Left RTC repair with biceps tenotomy Implants: S&N 4.75 double loaded Helacoil and 2 5.5 knotless Helacoil Regeneten collagen bio-inductive patch, large Surgeon: Anup Graham MD Anesthesia: GETA and regional Was an President And Chief Executive Officer used for this Procedure?: Yes President And Chief Executive Officer: Rayne Gibson Estimated blood loss (mL): 25 IV fluids (mL): 800 Pathology: none sent Condition: stable Disposition: PACU Procedure in detail: Patient was brought to the operating room and placed the the beach chair position. All bony prominences were well padded and the limb was prepped and draped in standard sterile fashion. A time out was called to identify proper site, proper procedure and proper surgeon. IV antibiotics per weight were administered. I began by making a posterolateral stab incision with a 15 blade. A blunt trochar was placed into the glenohumeral joint and I insufflated the joint with saline and a 30 degree arthroscope was placed. I established an outside- in anterior portal just distal to the biceps tendon. I then began my inspection of the glenohumeral joint. There was a high-grade tearing of the intra-articular portion of the biceps tendon with the intact superior labrum.. There were minimal cartilage changes at the inferior glenoid without humeral head changes. There was a full thickness undersurface RTC tear. The subcapularis was intact. I debrided the loose cartilage of the glenoid and the degenerative labral tearing and performed a biceps tenotomy. I then removed the trochar and entered the subacromial space. A direct lateral portal was then established and I performed a bursectomy. The cuff was then examined. There was a full thickness tear of the supra and infraspinatus without retraction. The tear was mobile but there was a chronic element of the tear so that a small anterior supraspinatus release was performed. There was moderate quality tissue. I placed two medial row double loaded anchors after using a tap just adjacent to the articular cartilage and then brought the suture limbs ( 8) through the medial cuff. I then debrided the bare area down to bleeding bone and, using a cross bridge configuration, brought 4 limbs to each of two lateral 5.0 anchors. This re-approximated the cuff anatomy anatomically. Because of the chronicity and size of the tear as well as the patient's age a large Regeneten collagen patch was placed. This was inserted via the anterolateral portal and held in place with peek thad medially and 2 bone anchors laterally. This covered the entirety of the repaired portion of the cuff and I was satisfied with the position. Once I was satisfied with the repair, my final images were captured and I removed all instrumentation. Portals were closed with nylon. Patient was placed in an abduction sling, extubated and brought to the recovery room in stable condition. There were no known complications.
== END 2025-01-29 13:03 | disposition home or self-care (01) ==
PROVIDERS: PCP Family Medicine; Visit Provider Orthopaedic Surgery
PROC: (CPT 29827; principal; 2025-01-29 09:30)
DX: M75.102 Unspecified rotator cuff tear or rupture of left shoulder, not specified as traumatic (principal); M25.512 Pain in left shoulder; M19.90 Unspecified osteoarthritis, unspecified site; J44.9 Chronic obstructive pulmonary disease, unspecified; F39 Unspecified mood [affective] disorder; F41.9 Anxiety disorder, unspecified; R41.3 Other amnesia; R42 Dizziness and giddiness; K75.9 Inflammatory liver disease, unspecified; R12 Heartburn; E55.9 Vitamin D deficiency, unspecified; F11.90 Opioid use, unspecified, uncomplicated; Z79.51 Long term (current) use of inhaled steroids; Z79.899 Other long term (current) drug therapy; F17.210 Nicotine dependence, cigarettes, uncomplicated; Z98.890 Other specified postprocedural states
CPT/HCPCS: 29827; 29822; C1713; C1763; J0131; J0165; J0665; J0690; J1100; J1596; J2003; J2250; J2405; J2704; J3010

== ENCOUNTER → 2025-01-29 06:50 | Outpatient (BNV) | payer MEDICARE, MEDICAID, SELFPAY | PROVIDERS: PCP Family Medicine; Visit Provider Orthopaedic Surgery | DX: S46.012A Strain of muscle(s) and tendon(s) of the rotator cuff of left shoulder, initial encounter (principal) | CPT/HCPCS: 29827 ==

== ENCOUNTER 2025-02-06 09:38 | Outpatient (AMB) | payer MEDICARE, SELFPAY ==
--- NOTE | 2025-02-06 09:56 | MHC.OFFVIS ---
Vital Signs 02/06/25 09:56 Height 5 ft 6 in Weight 124 lb BMI 20.0 Intake Visit Reasons: PO LT RTC repair 01/29/25 NE Intake Note: Leon is a 70 year old right hand dominant male who presents today post-operatively status post left shoulder rotator cuff repair, DOS: 01/29/[address] Graham. Patient reports he is experiencing pain all around the shoulder. He continues taking Percocet with some relief. He states he removed the big bandage yesterday before showering because it smelled really bad and did not want to come in to his visit today with that smell . Survey Research Associate Required: Yes Survey Research Associate Language: Manager Treasury Services: Survey Research Associate Present Survey Research Associate Name: VINAY Bhagat/BUCKY Allergies No Known Allergies (No Known Allergies*) Allergy (Verified 02/06/25 09:57) HPI HPI PO LT RTC repair 01/29/25 NE: Details: Mr. Toan Howard is a 70-year-old male who presents to the office today status post left shoulder rotator cuff repair with collagen patch and biceps tenotomy performed on 01/29/[address] Graham. Patient states that he has not heard from Physical therapy in regards to a postoperative evaluation patient reports that he is trying to not use his pain medication and has roughly 4 tabs left. Overall he is doing very well. He presents to the office today in the abduction sling positioned appropriately. No additional complaints. [facility] Medical History Methadone use Hepatitis Memory impairment Asthma-COPD overlap syndrome Personal history of nicotine dependence Arthritis Shoulder pain, bilateral Mood disorder Inguinal hernia Dizziness Heartburn Vitamin D deficiency Anxiety Surgical History History of right inguinal hernia repair (~03/05/24) Hx of hemorrhoidectomy Hx of removal of cyst Hx of colonoscopy History of esophagogastroduodenoscopy (EGD) Family History Father Cancer Father Cancer Other HTN (hypertension) Social History Are you a primary managed care specialist to a significant other at home: No Do you presently have visiting nurse or other home services: No Comment: counts correct Patient Tobacco Use Status: Current everyday Tobacco user Tobacco use type: Cigarette Cigarette Packs Per Day: 0.25 Cigarettes Per Day: 3 Years Smoked: 53 Review of Systems Const All systems reviewed & are unremarkable except as noted in HPI and below Physical Exam Vital Signs: BMI result Body Mass Index 20.0 Const General: cooperative, healthy appearing and no acute distress Resp Effort & Inspection: normal respiratory effort and able to speak in complete sentences Extrem Other: Right shoulder forward flexion and abduction to 45 degrees. External rotation to neutral. Sutures are clean dry and intact. No surrounding erythema or drainage. No signs of infection. NVI. Assessment & Plan Assessment & Plan (1) Status post left rotator cuff repair: Code(s): Z98.890 - Other specified postprocedural states Category: Surgical Plan Mr. Toan Howard is a 70-year-old male who presents to the office today status post left shoulder rotator cuff repair with collagen patch and biceps tenotomy performed on 01/29/[address] Graham. Patient states that he has not heard from Physical therapy in regards to a postoperative evaluation patient reports that he is trying to not use his pain medication and has roughly 4 tabs left. Overall he is doing very well. He presents to the office today in the abduction sling positioned appropriately. No additional complaints. While in the office today, sutures are removed and Steri-Strips were applied. The patient was instructed to remain in the sling at all times for the next 6 weeks. No driving for 6 weeks. I sent a refill of Percocet 5-325 mg p.o. Q 6 hours to the pharmacy. Additionally, I provided the patient with the contact information for our physical therapy department here at [facility] to schedule appointments. I would like the patient to be seen within 1 week postoperatively. He will follow up in [address] Grhaam, sooner if needed. Coding Level of Care Code Global (96833) Diagnoses Status post left rotator cuff repair Z98.890
--- OUTSIDE RECORDS SUMMARY | 2025-02-06 10:16 | XMS_ITS | Clinical Summary ---
Author Organization [employer] Address [address] [place] [address] [address] [place] [address] Care Team Providers Care Chief Drafter Name Role Phone Josr Sánchez MD Primary Care Provider [phone] Allergies No known active allergies Medications acetaminophen [...] taking.Reported on 12/24/2024 famotidine (Pepcid) 20 MG tabletIndication s:Heartburn Take [...] g 3 5 09/09/19 26 Active Umeclidinium [place] (Incruse Ellipta) 62.5 MCG/ACT aerosol powder Inhale [...] acromioclavicular osteoarthritis. - seen by Dr. Graham, [facility] on 02/16/24 - patient has tried [...] if willing to stop -referred today for [facility] for screening Assessment & Plan (12/18/2024 [...] AM EDT): - EGD by Dr. Casas [facility] on 12/03/21. No malignancy or atypical cells. Negative H. pylori - continue famotidine - reduce tobacco use, minimize NSAIDs use Assessment & Plan (09/09/2024 10:27 AM EST): - EGD by Dr. Casas [facility] on 12/03/21. No malignancy or atypical cells. Negative H. pylori - continue famotidine - reduce tobacco use, minimize NSAIDs use Assessment & Plan (07/18/2024 5:32 AM EST): - EGD by Dr. Casas [facility] on 12/03/21. No malignancy or atypical cells. Negative H. Pylori. - continue famotidine, will check H.pylori - reduce tobacco use, minimize NSAIDs use Assessment & Plan (04/22/2024 10:29 AM EDT): - EGD by Dr. Casas [facility] on 12/03/21. No malignancy or atypical [...] AM EDT): - 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 see bacon stringer, last seen in Mar 2024, patient was prescribed Wixela but does not have currently - continue umeclidinium (Incruse) - restart SMART with budesonide / formoterol (Symbicort) - continue albuterol PRN - continue working on smoking cessation - advised to reschedule chest CT, given number to call Assessment & Plan (09/13/2024 11:53 AM EST): - 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 see bacon stringer, last seen in Mar 2024, patient was prescribed Wixela but does not have currently - continue umeclidinium (Incruse) - restart SMART with budesonide / formoterol (Symbicort) - continue albuterol PRN - continue working on smoking cessation - advised to reschedule chest CT, given number to call Assessment & Plan (09/08/2024 6:15 PM EST): >>ASSESSMENT AND PLAN FOR CHRONIC OBSTRUCTIVE PULMONARY DISEASE ([facility]/HCC) WRITTEN ON 04/04/2023 6:07 PM BY VALENTINA MILLER, OSMEL Refill symbicort Care managed by Pulm F/u PRN Assessment & Plan (09/08/2024 6:15 PM EST): >>ASSESSMENT AND PLAN FOR CHRONIC OBSTRUCTIVE PULMONARY DISEASE ([facility]) WRITTEN ON 01/16/2024 12:06 PM BY BERT DAVIES - 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 see bacon stringer, last seen in JUN 2022, patient was prescribed Symbicort but does not have currently - will restart Symbicort and will start incruse - continue albuterol PRN - continue working on smoking cessation - will order lung cancer screening chest CT Assessment & Plan (09/08/2024 6:15 PM EST): >>ASSESSMENT AND PLAN FOR CHRONIC OBSTRUCTIVE PULMONARY DISEASE ([facility]/HCC) WRITTEN ON 04/26/2024 2:40 PM BY VINCE MANCILLA - 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 see bacon stringer, last seen in JUN 2022, patient was prescribed Symbicort but does not have currently - continue Symbicort and Incruse - continue albuterol PRN - continue working on smoking cessation - advised to reschedule chest CT, given number to call Assessment & Plan (09/08/2024 6:15 PM EST): >>ASSESSMENT AND PLAN FOR CHRONIC OBSTRUCTIVE PULMONARY DISEASE ([facility]) WRITTEN ON 07/18/2024 5:32 AM BY JOSR SÁNCHEZ MD - 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 see bacon stringer, last seen in JUN 2022, patient was [...] Encounters Date Type Department Care Team Description 01/30/2025 Telephone [facility] MEDICINE [address] [place] [address] Josr Sánchez MD march12/27/2024 Results Follow-Up [address] [address] Sandy Avelar MD T-SPOT .TB, PSA,Total 12/26/[address] [address] Leigh Bonilla [place] fyi 12/24/2024 9:15 AM EDT Office Visit [address] [address] Sandy Avelar MD Tuberculosis screening (Primary Dx); Health care maintenance; Tobacco dependence; Chronic left shoulder pain; Memory impairment; Asthma-COPD overlap syndrome (CMS/HCC); Strain of rotator cuff of both shoulders 12/24/2024 Orders Only [address] [address] Josr Sánchez MD 12/24/[address] [address] Sandy Avelar MD Appointment Request (Appointment Request for Lung Cancer Screening) 12/24/2024 Travel 12/18/2024 10:15 AM EDT Office Visit [address] [address] Josr Sánchez MD Chronic left shoulder pain (Primary Dx); Preop examination; Asthma-COPD overlap syndrome (CMS/HCC); Tobacco dependence; Heartburn; Methadone dependence (CMS/HCC) 12/18/2024 Travel 12/17/[address] [address] Josr Sánchez MD Chart Prep 12/13/[address] [address] Josr Sánchez MD Lab Orders (/) 11/09/[address] [address] Josr Sánchez MD Chronic obstructive pulmonary disease, [...] Description 02/26/2025 2:00 PM EDT Nurse Only [address] [address] 03/19/2025 2:00 PM EDT Clinical Support [address] [address] 03/20/2025 10:00 AM EDT Office Visit [address] [address] Josr Sánchez MD [address] [place] [phone] Health Maintenance Due Date Last Done Comments [...] 12 lead (12/25/2024 9:36 AM EDT) Narrative Josr Sánchez MD - 12/25/2024 9:36 AM EDT Rate 57, sinus, normal intervals, QTc 413 ms, normal axis, flat T-wave on V1, inverted T-wave in V2. No hypertrophy. Josr Sánchez MD ECG ORDERABLES Final Result * T-SPOT??.TB (12/24/2024 10:22 AM EDT) [facility] T Spot TB Negative Negative [facility] Comment:A negative test resu lt does [...] as aquantitative test. TS PANEL A 1 [facility] TS PANEL B 1 [facility] Negative Control Passed [facility] Positive Control Passed [facility] Comment:For additional infor joao, please refer [email or web address]/[email or web address](This link is being provided for informational/educational purposes only.)REPORT COMMENT:REC'D IN CHYTHIS TEST WAS PERFORMED AT:[employer] [id number] [place] [address]LIDFHJEMIR PRITCHARD MD,PHD 12/24/2024 10:2 2 AM EDT 12/24/2024 11:16 AM EDT us Sandy Sommer MD LAB BLOOD ORDERAB LES Final Result Performing Organization Address City/[facility]/ZIP Co de Phone Number [facility] [address] [place] [address] [phone] * PSA,Total (12/24/2024 10:22 AM EDT) Prostate Specific Antigen 0.51 <0.05 - 4.0 ng/mL [facility] Comment:PSA methodology: Heather Baptiste i ChemiluminescentMicroparticle Immunoassay (CMIA) Blood Venous blood specimen / Unknown 12/24/2024 10:22 AM EDT 12/24/2024 11:16 AM EDT Sandy Sommer MD LAB BLOOD ORDERAB LES Final Result [facility] [address] [place] [address] [phone] * (ABNORMAL) Basic Metabolic Panel (12/24/2024 10:22 AM EDT) Only the most recent of3 resultswithin the time period is included. Pathologist [facility] Sodium 141 135 - 145 mmol/L [facility] Potassium 4.5 3.3 - 5.1 mmol/L [facility] Chloride 105 96 - 108 mmol/L [facility] Carbon Dioxide 29 22 - 29 mmol/L [facility] Anion Gap 12 12 - 20 [facility] Urea Nitrogen (BUN) 20(H) 9 - 16 mg/dL [facility] Creatinine, Serum 0.95 0.5 - 1.4 mg/dL [facility] Estimated Glomerular Filt Rate >60 [facility] Comment:Chronic Kidney Disea se: Estimated GFR < 60 mL/min/1.55n3Juobqm Kidney Disease: Estimated GFR < 15 mL/min/1.73m2 Glucose 87 60 - 115 mg/dL [facility] Calcium 9.7 8.4 - 10.2 mg/dL [facility] 12/24/2024 10:2 2 AM EDT 12/24/2024 11:16 AM EDT us Josr Sánchez MD LAB BLOOD ORDERABLES Final Resul t Performing Organization Address [facility] Co de Phone Number [facility] [address] [place] [phone] * (ABNORMAL) CBC auto differential (12/24/2024 8:53 AM EDT) White Blood Count 5.1 4.8 - 10.8 X10*3/uL [facility] Red Blood Count 4.82 4.60 - 5.80 X10*6/uL [facility] Hemoglobin 13.9(L) 14.0 - 18.0 g/dl [facility] Hematocrit 44.0 42.0 - 52.0 % [facility] Mean Corpuscular Volume 91.3 80.0 - 98.0 fL [facility] Mean Corpuscular Hemoglobin 28.8 27.0 - 33.0 pg [facility] Mean Corpuscular HGB Conc 31.6 31.0 - 36.0 g/dl [facility] Red Cell Distribution Width 12.0 11.0 - 16.0 % [facility] Platelet Count 220 160 - 400 X10*3/uL [facility] Mean Platelet Volume 11.6 9.4 - 12.4 fL [facility] Neutrophils Percent Auto 52.5 45 - 73 % [facility] Imm Gran Pct Auto 0.2 0.0 - 0.4 % [facility] Lymphocytes Percent Auto 33.9 20 - 40 % [facility] Monocytes Percent Auto 8.3 2 - 11 % [facility] Eosinophils Percent Auto 4.3(H) 0 - 4 % [facility] Basophils Percent Auto 0.8 0 - 2 % [facility] NRBC Pct Auto 0.0 0.0 - 0.2 /100WBC [facility] Neutrophils Absolute Auto 2.7 2.0 - 8.3 x10*3/uL [facility] Imm Gran Abs Auto 0.01 0.00 - 0.03 X10*3/uL [facility] Lymphocytes Absolute Auto 1.7 1.2 - 4.9 X10*3/uL [facility] Monocytes Absolute Auto 0.4 0.1 - 1.2 X10*3/uL [facility] Eosinophils Absolute Auto 0.2 0.0 - 0.4 X10*3/uL [facility] Basophils Absolute Auto 0.0 0.0 - 0.2 X10*3/uL [facility] NRBC Abs Auto 0.000 0.0 - 0.012 X10*3/uL [facility] Blood Venous blood specimen / Unknown 12/24/2024 8:53 AM EDT 12/24/2024 11:16 AM EDT us Josr Sakurai MD LAB BLOOD ORDERABLES Final Resul t Performing Organization Address [facility] Co de Phone Number [facility] [address] [place] [phone] * Lipid Panel with Reflex to Direct LDL (04/22/2024 11:27 AM EDT) Triglycerides 31 <150 mg/dL [facility] Comment:Desirable Triglyceri de: less than 150 mg/dLBorderline High Triglyceride 150-199 mg/dLHigh Triglyceride: 200-499 mg/dLVery High Triglyceride: greater than or equal to 5OO mg/dL Cholesterol 170 <200 mg/dL [facility] Comment:Desirable Cholestero l: less than 200 mg/dLBorderline High Cholesterol: 200-239 mg/dLHigh Cholesterol: greater than 239 mg/dL LDL Cholesterol Calculated 69 <100 mg/dL [facility] Comment:Desirable LDL: less than 100 mg/dLNear Optimal/Above Optimal LDL: 110- 129 mg/dLBorderline High LDL: 130-159 mg/dLHigh LDL: 160-189 mg/dLVery High LDL: greater than or equal to 190 mg/dL HDL Cholesterol 95 >40 mg/dL [facility] Comment:Desirable HDL: great er than 40 mg/dL Note: This HDL assay may give artificially low results in patients with liver disease. Blood 04/22/2024 11:2 7 AM EDT 04/22/2024 1:13 PM EDT Josr Sánchez MD LAB BLOOD ORDERABLES Final Resul t Performing Organization Address [facility]/ZIP Co de Phone Number [facility] [address] [place] [phone] * Hepatitis C Antibody with Reflex to HCV, RNA, Quantitative, Real-Time PCR (04/22/2024 11:27 AM EDT) Hepatitis C Antibody Nonreactive Nonreactive [facility] Comment:Antibodies to HCV no t detected; does not exclude early acuteHCV infection. Blood Venous blood specimen / Unknown 04/22/2024 11:27 AM EDT 04/22/2024 1:13 PM EDT us Josr Sánchez MD LAB BLOOD ORDERABLES Final Resul t [facility] [address] [place] [address] [phone] * Colonoscopy (12/03/2021) Colonoscopy Normal Normal 12/03/2021 us Historical Provider HEALTH MAINTENANCE Final Result from Last 3 Months or Most Recently Relevant to Health Maintenance Insurance [facility] STANDARD [employer] MEDICARE REPLACEMENT Care Teams Chief Drafter Relationship Specialty Start Date End Date Josr Sánchez MD [address] [place] [address] PCP - General Family Medicine 01/08/24
== END 2025-02-06 10:48 | disposition home or self-care (01) ==
LOC: HO.HOS 09:39
PROVIDERS: PCP Family Medicine; Visit Provider Physician Assistant
DX: Z98.890 Other specified postprocedural states (principal)
CPT/HCPCS: 99024

== ENCOUNTER → 2025-02-06 09:38 | Outpatient (BNVA) | payer MEDICARE, SELFPAY | PROVIDERS: PCP Family Medicine; Visit Provider Physician Assistant | DX: Z98.890 Other specified postprocedural states (principal) | CPT/HCPCS: 99212 ==

== ENCOUNTER 2025-02-28 09:49 | Outpatient (REF) | payer MEDICARE, OTHER, SELFPAY ==
--- NOTE | ~2025-02-28 | US_ITS ---
CLINICAL HISTORY: NICOTINE DEPENDENCE US Abdomen (AAA) Comparison: None provided Findings: Aorta proximal 2.8 x 3 cm. Aorta mid 2 x 1.9 cm. Aorta distal 1.8 x 1.7 cm. peak systolic velocity of 80 cm/sec. There is atherosclerosis seen in the distal abdominal aorta. Right common iliac artery 1 x 1.1 cm. Left common iliac artery 1.1 x 1 cm. IMPRESSION: 1. Proximal abdominal aorta measures 3 cm in diameter. Follow-up ultrasound in 3 years is recommended. 2. Atherosclerosis seen of the distal abdominal aorta. This document has been electronically signed by: Jason Egan DO on 02/28/2025 12:49:39
== END 2025-02-28 09:50 | disposition home or self-care (01) ==
LOC: HO.US 09:49
PROVIDERS: PCP Family Medicine; Visit Provider Student in an Organized Health Care Education/Training Program
DX: F17.200 Nicotine dependence, unspecified, uncomplicated (principal)
CPT/HCPCS: 76706

== ENCOUNTER → 2025-02-28 09:52 | Outpatient (BNV) | payer MEDICARE, SELFPAY | PROVIDERS: PCP Family Medicine; Visit Provider Family Medicine | DX: F17.210 Nicotine dependence, cigarettes, uncomplicated (principal) | CPT/HCPCS: 76706 ==

== ENCOUNTER 2025-03-06 13:22 | Outpatient (AMB) | payer MEDICARE, SELFPAY ==
--- NOTE | 2025-03-06 13:26 | MHC.OFFVIS ---
Vital Signs 03/06/25 13:26 Height 5 ft 6 in Weight 124 lb BMI 20.0 Intake Visit Reasons: PO LT RTC repair 01/29/25 NE 4WK f/u Intake Note: Leon is a 70 year old right hand dominant male who presents today post-operatively status post left shoulder rotator cuff repair, DOS: 01/29/25 Allergies No Known Allergies (No Known Allergies*) Allergy (Verified 03/06/25 13:27) HPI HPI PO LT RTC repair 01/29/25 NE 4WK f/u: Details: Leon is a 70 year old right hand dominant male who presents today post-operatively status post left shoulder rotator cuff repair, DOS: 01/29/25. He feels well. He is working with physical therapy. ON LICENSE OF [facility] Medical History Methadone use Hepatitis Memory impairment Asthma-COPD overlap syndrome Personal history of nicotine dependence Arthritis Shoulder pain, bilateral Mood disorder Inguinal hernia Dizziness Heartburn Vitamin D deficiency Anxiety Surgical History History of right inguinal hernia repair (~03/05/24) Hx of hemorrhoidectomy Hx of removal of cyst Hx of colonoscopy History of esophagogastroduodenoscopy (EGD) Family History Father Cancer Father Cancer Other HTN (hypertension) Social History Are you a primary personal care aide to a significant other at home: No Do you presently have visiting nurse or other home services: No Comment: counts correct Patient Tobacco Use Status: Current everyday Tobacco user Tobacco use type: Cigarette Cigarette Packs Per Day: 0.25 Cigarettes Per Day: 3 Years Smoked: 53 Physical Exam Vital Signs: BMI result Body Mass Index 20.0 Extrem Other: Portals clean dry and intact 30/90/120/S1 Assessment & Plan Assessment & Plan (1) Status post left rotator cuff repair: Code(s): Z98.890 - Other specified postprocedural states Category: Surgical Plan: Status post rotator cuff repair doing well. May discontinue sling. Continue physical therapy. Likely return to work with no lifting in 6 weeks. Avoid lifting at all times now. Follow up in 6 weeks Coding Level of Care Code Global (44989) Diagnoses Status post left rotator cuff repair Z98.890
--- OUTSIDE RECORDS SUMMARY | 2025-03-06 13:33 | XMS_ITS | Clinical Summary ---
Author Organization [employer] Address [address] [place] [address] [address] [place] [address] Care Team Providers Care Resort Host Name Role Phone Pauly Sánchez MD Primary Care Provider [phone] Allergies No known active allergies Medications acetaminophen [...] g 3 5 09/09/19 26 Active Umeclidinium [place] (Incruse Ellipta) 62.5 MCG/ACT aerosol powder Inhale [...] acromioclavicular osteoarthritis. - seen by Dr. Graham, [facility] on 02/16/24 - [...] if willing to stop -referred today for [facility] US for screening Assessment & Plan (12/18/2024 [...] AM EDT): - EGD by Dr. Casas [facility] on 12/03/21. No malignancy or atypical cells. Negative H. pylori - continue famotidine - reduce tobacco use, minimize NSAIDs use Assessment & Plan (09/09/2024 10:27 AM EST): - EGD by Dr. Casas [facility] on 12/03/21. No malignancy or atypical cells. Negative H. pylori - continue famotidine - reduce tobacco use, minimize NSAIDs use Assessment & Plan (07/18/2024 5:32 AM EST): - EGD by Dr. Casas [facility] on 12/03/21. No malignancy or atypical cells. Negative H. Pylori. - continue famotidine, will check H.pylori - reduce tobacco use, minimize NSAIDs use Assessment & Plan (04/22/2024 10:29 AM EDT): - EGD by Dr. Casas [facility] on 12/03/21. No malignancy or atypical [...] AM EDT): - 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 see mobile equipment operator, last seen in Mar 2024, patient was prescribed Wixela but does not have currently - continue umeclidinium (Incruse) - restart SMART with budesonide / formoterol (Symbicort) - continue albuterol PRN - continue working on smoking cessation - advised to reschedule chest CT, given number to call Assessment & Plan (09/13/2024 11:53 AM EST): - 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 see mobile equipment operator, last seen in Mar 2024, patient was prescribed Wixela but does not have currently - continue umeclidinium (Incruse) - restart SMART with budesonide / formoterol (Symbicort) - continue albuterol PRN - continue working on smoking cessation - advised to reschedule chest CT, given number to call Assessment & Plan (09/08/2024 6:15 PM EST): >>ASSESSMENT AND PLAN FOR CHRONIC OBSTRUCTIVE PULMONARY DISEASE ([facility]/HCC) WRITTEN ON 04/04/2023 6:07 PM BY VALENTINA MILLER, OSMEL Refill symbicort Care managed by Pulm F/u PRN Assessment & Plan (09/08/2024 6:15 PM EST): >>ASSESSMENT AND PLAN FOR CHRONIC OBSTRUCTIVE PULMONARY DISEASE ([facility]) WRITTEN ON 01/16/2024 12:06 PM BY BERT DAVIES - 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 see mobile equipment operator, last seen in JUN 2022, patient was prescribed Symbicort but does not have currently - will restart Symbicort and will start incruse - continue albuterol PRN - continue working on smoking cessation - will order lung cancer screening chest CT Assessment & Plan (09/08/2024 6:15 PM EST): >>ASSESSMENT AND PLAN FOR CHRONIC OBSTRUCTIVE PULMONARY DISEASE ([facility]/HCC) WRITTEN ON 04/26/2024 2:40 PM BY VINCE MANCILLA - 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 see mobile equipment operator, last seen in JUN 2022, patient was prescribed Symbicort but does not have currently - continue Symbicort and Incruse - continue albuterol PRN - continue working on smoking cessation - advised to reschedule chest CT, given number to call Assessment & Plan (09/08/2024 6:15 PM EST): >>ASSESSMENT AND PLAN FOR CHRONIC OBSTRUCTIVE PULMONARY DISEASE ([facility]) WRITTEN ON 07/18/2024 5:32 AM BY PAULY SÁNCHEZ MD - 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 see mobile equipment operator, last seen in JUN 2022, patient was [...] Encounters Date Type Department Care Team Description 02/28/2025 Results Follow-Up [facility] [address] [place] [address] Sandy Avelar MD ABDOMINAL AORTIC ANEURYSM 02/28/2025 Orders Only [facility] [place] [address] Sandy Avelar MD 01/30/2025 Telephone [facility] [place] [address] Pauly Sánchez MD march12/27/2024 Results Follow-Up [address] [place] [address] Sandy Avelar MD T-SPOT .TB, PSA,Total 12/26/2024 Telephone [facility] [address] Leigh Bonilla [place] fyi 12/24/2024 9:15 AM EDT Office Visit [address] [place] [address] Sandy Avelar MD Tuberculosis screening (Primary Dx); Health care maintenance; Tobacco dependence; Chronic left shoulder pain; Memory impairment; Asthma-COPD overlap syndrome (CMS/HCC); Strain of rotator cuff of both shoulders 12/24/2024 Orders Only [facility] [place] [place] [address] Pauly Sánchez MD 12/24/[address] [address] Sandy Avelar MD Appointment Request (Appointment Request for Lung Cancer Screening) 12/24/2024 Travel 12/18/2024 10:15 AM EDT Office Visit [facility] [place] [place] [address] Pauly Sánchez MD Chronic left shoulder pain (Primary Dx); Preop examination; Asthma-COPD overlap syndrome (CMS/HCC); Tobacco dependence; Heartburn; Methadone dependence (CMS/HCC) 12/18/2024 Travel 12/17/2024 Telephone [facility] [place] [address] Pauly Sánchez MD Chart Prep 12/13/[address] [address] Pauly Sánchez MD Lab Orders (/) from Last 3 Months Immunizations Immunization Administration [...] is your housing situation today? I have emileeannie saldana 01/16/[address] you [...] Care Team (Late st Contact Info) Description 03/19/2025 2:00 PM EDT Clinical Support [address] [address] 03/20/2025 10:00 AM EDT Office Visit [facility] [address] [place] [address] Pauly Sánchez MD [address] [place] [phone] Health Maintenance Due Date Last Done Comments [...] Procedure Name Priority Date/Time Associated Diagnosis Comments US ABDOMINAL AORTIC ANEURYSM Routine 02/28/2025 12:49 PM EDT ECG 12-LEAD Routine 12/25/2024 9:36 AM EDT [...] Recently Relevant to Health Maintenance Results * US ABDOMINAL AORTIC ANEURYSM (02/28/2025 12:49 PM EDT) Anatomical Region Laterality Modality Abdomen Ultrasound 02/28/2025 12:4 9 PM EDT Narrative 02/28/2025 12:51 PM EDT [address] [address] Ultrasound Report Signed Patient: Leon Nelson MR# : [id number] : 1955 Acct:[id number] Age/Sex: 70 / M ADM Date: 02/28/25 Loc: HO.US Attending Dr: Sandy Sommer MD Ordering Physician: Sandy Avelar MD Date of Service: 02/28/25 Procedure(s): US abdominal aortic aneurysm Accession Number(s): [id number] cc: Sandy Avelar MD; Pauly Sánchez MD CLINICAL HISTORY: NICOTINE DEPENDENCE US Abdomen (AAA) Comparison: None provided Findings: Aorta proximal 2.8 x 3 cm. Aorta mid 2 x 1.9 cm. Aorta distal 1.8 x 1.7 cm. peak systolic velocity of 80 cm/sec. There is atherosclerosis seen in the distal abdominal aorta. Right common iliac artery 1 x 1.1 cm. Left common iliac artery 1.1 x 1 cm. IMPRESSION: 1. Proximal abdominal aorta measures 3 cm in diameter. Follow-up ultrasound in 3 years is recommended. 2. Atherosclerosis seen of the distal abdominal aorta. This document has been electronically signed by: Jason Egan DO on 02/28/2025 12:49:39 Dictated By: Jaosn Egan DO Signed By: <Electronically signed by Jason Egan DO in OV> 02/28/25 1250 DD/ 1249 TD/TT: 02/28/25 1249 Cold Work Operator: Procedure Note Donotuseinterpreter, Image - 02/28/2025 [place] [address] Ultrasound Report Signed Patient: Leon Nelson [facility]# : [id number] : 5Acct:[id number] Age/Sex: 70 / MADM Date: 02/28/25 Loc: HO.US Attending Dr: Sandy Sommer MD Ordering Physician: Sandy Avelar MD Date of Service: 02/28/25 Procedure(s): US abdominal aortic aneurysm Accession Number(s): [id number] cc: Sandy Avelar MD; Pauly Sánchez MD CLINICAL HISTORY: NICOTINE DEPENDENCE US Abdomen (AAA) Comparison: None provided Findings: Aorta proximal 2.8 x 3 cm. Aorta mid 2 x 1.9 cm. Aorta distal 1.8 x 1.7 cm. peak systolic velocity of 80 cm/sec. There is atherosclerosis seen in the distal abdominal aorta. Right common iliac artery 1 x 1.1 cm. Left common iliac artery 1.1 x 1 cm. IMPRESSION: 1. Proximal abdominal aorta measures 3 cm in diameter. Follow-up ultrasound in 3 years is recommended. 2. Atherosclerosis seen of the distal abdominal aorta. This document has been electronically signed by: Jason Egan DO on 02/28/2025 12:49:39 Dictated By: Jason Egan DO Signed By: <Electronically signed by Jason Egan DO in OV> 02/28/25 1250 DD/ 1249 TD/TT: 02/28/25 1249 Cold Work Operator: us Sandy Sommer MD IMG US PROCEDURES Final Result * ECG 12 lead (12/25/2024 9:36 AM EDT) Narrative Pauly Sánchez MD - 12/25/2024 9:36 AM EDT Rate 57, sinus, normal intervals, QTc 413 ms, normal axis, flat T-wave on V1, inverted T-wave in V2. No hypertrophy. Pauly Sánchez MD ECG ORDERABLES Final Result * T-SPOT??.TB (12/24/2024 10:22 AM EDT) [facility] T Spot TB Negative Negative [facility] Comment:A negative test resu lt [...] as aquantitative test. TS PANEL A 1 [facility] TS PANEL B 1 [facility] Negative Control Passed [facility] Positive Control Passed [facility] Comment:For additional infor mation, please refer [email or web address].Tuniu/faq/OJR640(This link is being provided for informational/educational purposes only.)REPORT COMMENT:REC'D IN CHYTHIS TEST WAS PERFORMED AT:[employer] [id number] [place] [address]CYUOONVMIR PRITCHARD MD,PHD 12/24/2024 10:2 2 AM EDT 12/24/2024 11:16 AM EDT Sandy Sommer MD LAB BLOOD ORDERAB LES Final Result Performing Organization Address City/[facility]/ZIP Co de Phone Number [facility] [address] [place] [phone] * PSA,Total (12/24/2024 10:22 AM EDT) Pathologist [facility] Prostate Specific Antigen 0.51 <0.05 - 4.0 ng/mL [facility] Comment:PSA methodology: Abb gia Alinity i ChemiluminescentMicroparticle Immunoassay (CMIA) Blood Venous blood specimen / Unknown 12/24/2024 10:22 AM EDT 12/24/2024 11:16 AM EDT Sandy Sommer MD LAB BLOOD ORDERAB LES Final Result Performing Organization Address City/[facility]/ZIP Co de Phone Number [facility] [address] [place] [phone] * (ABNORMAL) Basic Metabolic Panel (12/24/2024 10:22 AM EDT) Only the most recent of3 resultswithin the time period is included. Sodium 141 135 - 145 mmol/L [facility] Potassium 4.5 3.3 - 5.1 mmol/L [facility] Chloride 105 96 - 108 mmol/L [facility] Carbon Dioxide 29 22 - 29 mmol/L [facility] Anion Gap 12 12 - 20 [facility] Urea Nitrogen (BUN) 20(H) 9 - 16 mg/dL [facility] Creatinine, Serum 0.95 0.5 - 1.4 mg/dL [facility] Estimated Glomerular Filt Rate >60 [facility] Comment:Chronic Kidney Disea se: Estimated GFR < 60 mL/min/1.27g7Seaqzu Kidney Disease: Estimated GFR < 15 mL/min/1.73m2 Glucose 87 60 - 115 mg/dL [facility] Calcium 9.7 8.4 - 10.2 mg/dL [facility] 12/24/2024 10:2 2 AM EDT 12/24/2024 11:16 AM EDT us Pauly Sánchez MD LAB BLOOD ORDERABLES Final Resul t [facility] [address] [place] [phone] * (ABNORMAL) CBC auto differential (12/24/2024 8:53 AM EDT) White Blood Count 5.1 4.8 - 10.8 X10*3/uL [facility] Red Blood Count 4.82 4.60 - 5.80 X10*6/uL [facility] Hemoglobin 13.9(L) 14.0 - 18.0 g/dl [facility] Hematocrit 44.0 42.0 - 52.0 % [facility] Mean Corpuscular Volume 91.3 80.0 - 98.0 fL [facility] Mean Corpuscular Hemoglobin 28.8 27.0 - 33.0 pg [facility] Mean Corpuscular HGB Conc 31.6 31.0 - 36.0 g/dl [facility] Red Cell Distribution Width 12.0 11.0 - 16.0 % [facility] Platelet Count 220 160 - 400 X10*3/uL [facility] Mean Platelet Volume 11.6 9.4 - 12.4 fL [facility] Neutrophils Percent Auto 52.5 45 - 73 % [facility] Imm Gran Pct Auto 0.2 0.0 - 0.4 % [facility] Lymphocytes Percent Auto 33.9 20 - 40 % [facility] Monocytes Percent Auto 8.3 2 - 11 % [facility] Eosinophils Percent Auto 4.3(H) 0 - 4 % [facility] Basophils Percent Auto 0.8 0 - 2 % [facility] NRBC Pct Auto 0.0 0.0 - 0.2 /100WBC [facility] Neutrophils Absolute Auto 2.7 2.0 - 8.3 x10*3/uL [facility] Imm Gran Abs Auto 0.01 0.00 - 0.03 X10*3/uL [facility] Lymphocytes Absolute Auto 1.7 1.2 - 4.9 X10*3/uL [facility] Monocytes Absolute Auto 0.4 0.1 - 1.2 X10*3/uL [facility] Eosinophils Absolute Auto 0.2 0.0 - 0.4 X10*3/uL [facility] Basophils Absolute Auto 0.0 0.0 - 0.2 X10*3/uL [facility] NRBC Abs Auto 0.000 0.0 - 0.012 X10*3/uL [facility] Blood Venous blood specimen / Unknown 12/24/2024 8:53 AM EDT 12/24/2024 11:16 AM EDT us Pauly Sánchez MD LAB BLOOD ORDERABLES Final Resul t [facility] [address] [place] [address] [phone] * Lipid Panel with Reflex to Direct LDL (04/22/2024 11:27 AM EDT) Triglycerides 31 <150 mg/dL [facility] Comment:Desirable Triglyceri de: less than 150 mg/dLBorderline High Triglyceride 150-199 mg/dLHigh Triglyceride: 200-499 mg/dLVery High Triglyceride: greater than or equal to 5OO mg/dL Cholesterol 170 <200 mg/dL [facility] Comment:Desirable Cholestero l: less than 200 mg/dLBorderline High Cholesterol: 200-239 mg/dLHigh Cholesterol: greater than 239 mg/dL LDL Cholesterol Calculated 69 <100 mg/dL [facility] Comment:Desirable LDL: less than 100 [...] ORDERABLES Final Resul t Performing Organization Address [facility] Co de Phone Number [facility] [address] [place] [phone] * Hepatitis C Antibody with Reflex to HCV, RNA, Quantitative, Real-Time PCR (04/22/2024 11:27 AM EDT) Hepatitis C Antibody Nonreactive Nonreactive [facility] Comment:Antibodies to HCV no t detected; does not exclude early acuteHCV infection. Blood Venous blood specimen / Unknown 04/22/2024 11:27 AM EDT 04/22/2024 1:13 PM EDT Pauly Sánchez MD LAB BLOOD ORDERABLES Final Resul t Performing Organization Address City/[facility] Co de Phone Number [facility] [address] [place] [phone] * Hm Colonoscopy (12/03/2021) Colonoscopy Normal Normal 12/03/2021 Historical Provider HEALTH MAINTENANCE Final Result from Last 3 Months or Most Recently Relevant to Health Maintenance Insurance [facility] STANDARD [employer] MEDICARE REPLACEMENT Care Teams Resort Host Relationship Specialty Start Date End Date Pauly Sánchez MD [address] [place] [address] PCP - General Family Medicine 01/08/24
== END 2025-03-06 13:49 | disposition home or self-care (01) ==
LOC: HO.HOS 13:23
PROVIDERS: PCP Family Medicine; Visit Provider Orthopaedic Surgery
DX: Z98.890 Other specified postprocedural states (principal)
CPT/HCPCS: 99024

== ENCOUNTER → 2025-03-06 13:22 | Outpatient (BNVA) | payer MEDICARE, SELFPAY | PROVIDERS: PCP Family Medicine; Visit Provider Orthopaedic Surgery | DX: Z98.890 Other specified postprocedural states (principal) | CPT/HCPCS: 99212 ==

== ENCOUNTER 2025-05-01 14:04 | Outpatient (AMB) | payer MEDICARE, SELFPAY ==
--- NOTE | 2025-05-01 14:15 | MHC.OFFVIS ---
Intake Visit Reasons: PO LT RTC repair 01/29/25 NE 4WK f/u Intake Note: Leon is a 70 year old right hand dominant male who presents today for a post operative appointment about 3 months s/p left shoulder rotator cuff repair 01/29/25. Today we are anticipating to return to work on light duty. His last visit with [facility] was on 03/27 with no subsequent visit booked - Patient reports that he needed to go to [place] which is why he did not attend further visits. He has some mild pain and difficulty with ROM. Allergies No Known Allergies (No Known Allergies*) Allergy (Verified 03/06/25 13:27) HPI HPI PO LT RTC repair 01/29/25 NE 4WK f/u: Details: Leon is a 70 year old right hand dominant male who presents today for a post operative appointment about 3 months s/p left shoulder rotator cuff repair 01/29/25. Today we are anticipating to return to work on light duty. His last visit with [facility] was on 03/27 with no subsequent visit booked - Patient reports that he needed to go to [place] which is why he did not attend further visits. He has some mild pain and difficulty with ROM. [facility] Medical History Methadone use Hepatitis Memory impairment Asthma-COPD overlap syndrome Personal history of nicotine dependence Arthritis Shoulder pain, bilateral Mood disorder Inguinal hernia Dizziness Heartburn Vitamin D deficiency Anxiety Surgical History History of right inguinal hernia repair (~03/05/24) Hx of hemorrhoidectomy Hx of removal of cyst Hx of colonoscopy History of esophagogastroduodenoscopy (EGD) Family History Father Cancer Father Cancer Other HTN (hypertension) Social History Are you a primary home health care case manager to a significant other at home: No Do you presently have visiting nurse or other home services: No Comment: counts correct Patient Tobacco Use Status: Current everyday Tobacco user Tobacco use type: Cigarette Cigarette Packs Per Day: 0.25 Cigarettes Per Day: 3 Years Smoked: 53 Physical Exam Extrem Other: poor mechanics with excessive scapualr recruitment with abduction 4-/5 supraspinatus strength full passive ROM portals well healed Assessment & Plan Assessment & Plan (1) Status post left rotator cuff repair: Code(s): Z98.890 - Other specified postprocedural states Category: Surgical Plan: Leon is subjectively doing well but objectively not where he should be with strength. His mechanics are poor and his cuff strength is difficult to accurately assess. I strongly recommend PT and HEP to improve mechanics. I reviewed exercises with him and will see him back in 2 months. PT rx written. Orders: Orders PT Evaluation and Treatment Today Z98.890 - Other specified postprocedural states Coding Level of Care Code Global (06137) Diagnoses Status post left rotator cuff repair Z98.890
== END 2025-05-01 14:40 | disposition home or self-care (01) ==
LOC: HO.HOS 14:05
PROVIDERS: PCP Family Medicine; Visit Provider Orthopaedic Surgery
DX: Z47.89 Encounter for other orthopedic aftercare (principal); S46.012D Strain of muscle(s) and tendon(s) of the rotator cuff of left shoulder, subsequent encounter
CPT/HCPCS: 99213

== ENCOUNTER → 2025-05-01 14:04 | Outpatient (BNVA) | payer MEDICARE, SELFPAY | PROVIDERS: PCP Family Medicine; Visit Provider Orthopaedic Surgery | DX: Z98.890 Other specified postprocedural states (principal) | CPT/HCPCS: 99212 ==

== ENCOUNTER 2025-06-16 13:50 | Outpatient (AMB) | payer MEDICARE, SELFPAY ==
--- NOTE | 2025-06-16 13:53 | MHC.OFFVIS ---
Vital Signs 06/16/25 13:53 Height 5 ft 6 in Weight 124 lb BMI 20.0 Intake Visit Reasons: OV-LT RTC Repair 01/29/25 Intake Note: Leon is a 70 year old right hand dominant male who presents today for a post operative appointment about 5 months s/p left shoulder rotator cuff repair 01/29/25. At his last visit we discussed continued weakness on the operative arm, and it was recommended that he continue Physical Therapy. He has been working with [facility]. Allergies No Known Allergies (No Known Allergies*) Allergy (Verified 06/16/25 13:54) HPI HPI OV-LT RTC Repair 01/29/25: Details: Christiano is now almost 5 months status post left rotator repair. Large repair protocol. He is actually doing very well. His primary complaint is right shoulder pain. He has difficulty with overhead activity on the right but the left he says his motion is full. He has stopped going to . [facility] Medical History Methadone use Hepatitis Memory impairment Asthma-COPD overlap syndrome Personal history of nicotine dependence Arthritis Shoulder pain, bilateral Mood disorder Inguinal hernia Dizziness Heartburn Vitamin D deficiency Anxiety Surgical History History of right inguinal hernia repair (~03/05/24) Hx of hemorrhoidectomy Hx of removal of cyst Hx of colonoscopy History of esophagogastroduodenoscopy (EGD) Family History Father Cancer Father Cancer Other HTN (hypertension) Social History Are you a primary customer care professional to a significant other at home: No Do you presently have visiting nurse or other home services: No Comment: counts correct Patient Tobacco Use Status: Current everyday Tobacco user Tobacco use type: Cigarette Cigarette Packs Per Day: 0.25 Cigarettes Per Day: 3 Years Smoked: 53 Physical Exam Exam Exam: Left shoulder with full range of motion and negative empty can. Right shoulder with a positive impingement and 4+/5 empty can. Full passive range of motion. Abduction limited by pain Vital Signs: BMI result Body Mass Index 20.0 Office Procedures Joint Inj/Aspir; Non-Pain Clin Joint Injection/Drain Details: Injected 1 mL of Decadron and 3 mL 1% lidocaine and 3 mL of 0.25% Marcaine. Site was prepped using aseptic technique. Patient tolerated the procedure well. Shoulders, Hips, Knees, Shoulder Injection Large joint : Right Shoulder Coding Procedure code (CPT) selection complete Assessment & Plan Assessment & Plan (1) Status post left rotator cuff repair: Code(s): Z98.890 - Other specified postprocedural states Category: Surgical Plan: Doing very well status post left rotator cuff repair. Continue exercises and range of motion as tolerated. (2) Impingement syndrome of right shoulder: Code(s): M75.41 - Impingement syndrome of right shoulder Category: Medical Plan: Injected the right shoulder. Doing at home exercises which she should continue. Follow up as needed. Coding Level of Care Code Complex visit Add On G2211 Diagnoses Status post left rotator cuff repair Z98.890 Impingement syndrome of right shoulder M75.41 CPT Codes Shoulders, Hips, Knees, - Shoulder Injection Large joint : Right Shoulder ([id number])
--- OUTSIDE RECORDS SUMMARY | 2025-06-16 17:19 | XMS_ITS | Encounter Summary ---
Author Organization [employer] Address [address] [place] [address] [place] [address] Care Team Providers Care Product Safety Tester Name Role Phone Pauly Sánchez MD Primary Care Provider [phone] Reason for Visit * Reason Onset Date Comments Lab Orders 12/13/2024 Encounter Details Date Type Department Care Team ([facility] Contact Info) Description 12/13/2024 Telephone [facility] MEDICINE [address] [place] [address] Pauly Sánchez MD [address] [place] [address] Lab Orders (/) Social History Tobacco Use Types Packs/Day Years [...] Miscellaneous Notes * Telephone Encounter - Dolores Degroot RN - 12/13/2024 11:26 AM EDT Returned phone call to Sima at [facility]. Pt had appt with Dr Graham today (note under Encounters). Pt scheduled for left rotator cuff repair surgery on 2025 under general anesthesia. Per [facility], pt does not need pre-op clearance but [facility] is requesting EKG and labs (BMP, CBCw/ diff) to be completed at upcoming 12/18/24 appt. They would like the office note, EKG, and labs faxed to them after. If anything unusual develops then, pt would likely need pre-op clearance. They are having the pt follow up with reeling machine operator beforehand and will contact the pt to inquire about which methadone clinic he does to to get guidance on methadone before surgery. Advised Sima can send message to PCP to advise as needed. * Telephone Encounter - Constance Joya - 12/13/2024 11:12 AM EDT Tc from Sima with [facility] requesting lab work and EKG order. F. [phone] P. [phone] documented in this encounter Plan of Treatment Not on file documented as of this encounter Visit Diagnoses Not on filedocumented in this encounter Additional Health Concerns Assessment Noted Time PHQ-9 Depression Total Score: 0 09/09/19 25 10:04 AM EST documented as of this encounter Care Teams Product Safety Tester Relationship Specialty Start Date End Date Pauly Sánchez MD [address] [place] [address] PCP - General Family Medicine 01/08/24 documented as of this encounter
--- OUTSIDE RECORDS SUMMARY | 2025-06-16 17:19 | XMS_ITS | Encounter Summary ---
Author Organization [employer] Address [address] [facility] 7 [place] [address] Care Team Providers Care Nitrocellulose Operator Name Role Phone Pauly Sánchez MD Primary Care Provider [phone] Encounter Details Date Type Department Care Team (Late st Contact Info) Description 08/23/2024 Orders Only [facility] MEDICINE [address] [place] [address] Pauly Sánchez MD [address] [place] [address] Chronic left shoulder pain Social History Tobacco [...] documented as of this encounter Care Teams Nitrocellulose Operator Relationship Specialty Start Date End Date Pauly Sánchez MD [address] [place] [id number] PCP - General Family Medicine 01/08/24 documented as of this encounter
--- OUTSIDE RECORDS SUMMARY | 2025-06-16 17:19 | XMS_ITS | Clinical Summary ---
Author Organization [employer] Address [address] [place] [address] 7t [place] [address] Care Team Providers Care Medical Coding Instructor Name Role Phone Pauly Sánchez MD Primary Care Provider [phone] Allergies No known active allergies Medications acetaminophen (Tylenol Extra Strength) 500 MG tablet Take 2 tablets (1,000 mg) by mouth every 8 (eight) hours if needed for moderate pain. 180 tablet 1 01/16/20 24 Active Additional Information Patient not taking.Reported on 12/24/2024 Melatonin 3 MG capsule Take 1 capsule by mouth 2 hours prior to your desired bedtime 30 capsule 3 01/16/20 24 Active Additional Information Patient not taking.Reported on 12/24/2024 famotidine (Pepcid) 20 MG tabletIndicatio ns:Heartburn Take 1 tablet (20 mg) by mouth if needed in the morning and at bedtime for heartburn. 180 tablet 2 09/09/19 25 Active Umeclidinium [place] (Incruse Ellipta) 62.5 MCG/ACT aerosol powder Inhale 1 Act (62.5 mcg) Once per day. 30 Act 11 09/09/19 25 Active acetaminophen-c odeine (Tylenol w/ Codeine #3) 300-30 MG tabletIndicatio ns:Chronic left shoulder pain Take 1 tablet by mouth if needed in the morning and at bedtime for severe pain. 56 tablet 5 11:50 AM EST 05/15/20 25 Active Ventolin HFA 108 (90 Base) MCG/ACT inhaler INHALE 2 PUFFS BY MOUTH EVERY 4 HOURS NEEDED FOR WHEEZING OR SHORTNESS OF BREATH, DO NOT EXCEED 8 PUFF / DAY 18 g 3 11:02 AM EST 06/02/20 Active budesonide-form oterol (Symbicort) 80-4.5 MCG/ACT inhalerIndicati ons:Chronic obstructive pulmonary disease, unspecified COPD type (CMS/HCC) (HCC) INHALE 2 PUFFS BY MOUTH TWICE DAILY IN THE MORNING AND AT BEDTIME, RINSE MOUTH AFTER USING. DO NOT SWALLOW 10.2 g 1 06/05/20 Active albuterol 108 (90 Base) MCG/ACT inhaler Inhale 2 puffs every 4 (four) hours if needed for wheezing or shortness of breath. Maximum 8 puffs per day 18 g 3 09/09/19 25 025 Discontinued Symbicort 80-4.5 MCG/ACT inhalerIndicati ons:Chronic obstructive pulmonary disease, unspecified COPD type (CMS/HCC) (HCC) INHALE 2 PUFFS BY MOUTH TWICE DAILY IN THE MORNING AND AT BEDTIME, RINSE MOUTH AFTER USING. DO NOT SWALLOW 10.2 g 1 11/12/19 25 025 Discontinued Active Problems Problem Noted Date Diagnosed Date Aneurysm of abdominal aorta 03/20/2025 Atherosclerosis of abdominal aorta 03/20/2025 Health care maintenance 12/25/2024 Assessment & Plan [...] acromioclavicular osteoarthritis. - seen by Dr. Graham, [facility] on 02/16/24 - [...] 10:27 AM EST): - EGD by Dr. Augusto AGUILERA on 12/03/21. No malignancy or atypical [...] tobacco use F/u prn Asthma-COPD overlap syndrome ([facility]/HCC) Assessment & Plan (12/25/2024 6:47 AM EDT): Stable - continue umeclidinium ,Symbicort - continue albuterol PRN reports few times a week - tobacco smoking cessation advised Assessment & Plan (12/18/2024 9:06 AM EDT): - 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 see experimental rocket sled mechanic, last seen in Mar 2024, patient was prescribed Wixela but does not have currently - continue umeclidinium (Incruse) - restart SMART with budesonide / formoterol (Symbicort) - continue albuterol PRN - continue working on smoking cessation - advised to reschedule chest CT, given number to call Assessment & Plan (09/13/2024 11:53 AM EST): - 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 see experimental rocket sled mechanic, last seen in Mar 2024, patient was [...] PULMONARY DISEASE ([facility]) WRITTEN ON 04/04/2023 6:07 PM BY OSMEL BALTAZAR Refill symbicort Care managed by Pulm F/u PRN Assessment & Plan (09/08/2024 6:15 PM EST): >>ASSESSMENT AND PLAN FOR CHRONIC OBSTRUCTIVE PULMONARY DISEASE ([facility]) WRITTEN ON 01/16/2024 12:06 PM BY BERT DAVIES - 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 see experimental rocket sled mechanic, last seen in JUN 2022, patient was [...] VINCE MANCILLA - 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 see experimental rocket sled mechanic, last seen in JUN 2022, patient was prescribed Symbicort but does not have currently - continue Symbicort and Incruse - continue albuterol PRN - continue working on smoking cessation - advised to reschedule chest CT, given number to call Assessment & Plan (09/08/2024 6:15 PM EST): >>ASSESSMENT AND PLAN FOR CHRONIC OBSTRUCTIVE PULMONARY DISEASE ([facility]/HCC) WRITTEN ON 07/18/2024 5:32 AM BY PAULY SÁNCHEZ MD - 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 see experimental rocket sled mechanic, last seen in JUN 2022, patient was [...] will follow-up in 3 months 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) 03/07/2022 Assessment & Plan (12/18/2024 9:06 AM [...] Encounters Date Type Department Care Team Description 06/16/2025 Telephone [facility] [place] [address] Pauly Sánchez MD july recall 06/05/2025 Refill [facility] [address] [facility] [place] [address] Pauly Sánchez MD Chronic obstructive pulmonary disease, unspecified COPD type ([facility]) ([facility]) 05/31/2025 Refill [facility] [address] [facility] [place] [address] Pauly Sánchez MD 05/15/2025 Telephone [facility] [address] [place] [address] Grecia Cosby, ANÍBAL 05/15/2025 Orders Only [facility] MEDICINE [address] [facility] [place] [address] Pauly Sánchez MD Chronic left shoulder pain 05/14/2025 Telephone [facility] [address] [place] [address] Grecia Cosby, ANÍBAL Med Refill 05/13/2025 Telephone [facility] MEDICINE [address] [facility] [place] [address] Pauly Sánchez MD Med Refill 03/20/2025 Telephone [facility] MEDICINE [address] [facility] [place] [address] Pauly Sánchez MD No Show from Last 3 Months Immunizations Immunization Administration [...] 1955 FIT 1955 FOBT 1955 Sigmoidoscopy 1955 Alcohol/Substance Use Screening 1967 SDOH Screening 01/15/2025 01/16/2024 Zoster Vaccines (2 of 2) 02/21/2025 12/27/2024 COVID-19 Vaccine ( season) 2025 04/22/2024, 01/16/2024, 03/31/2021, Additional history exists Influenza Vaccine (#1) 2025 , 04/07/2023, 07/30/2020, Additional history exists Depression Screening 09/09/2025 09/09/2024, 09/09/19 25 Tobacco Screening 12/24/2025 12/24/2024 Lipid Panel 04/22/2029 [...] 11:27 AM EDT) Triglycerides 31 <150 mg/dL [facility] Comment:Desirable Triglyceri de: less than 150 mg/dLBorderline High Triglyceride 150-199 mg/dLHigh Triglyceride: 200-499 mg/dLVery High Triglyceride: greater than or equal to 5OO mg/dL Cholesterol 170 <200 mg/dL [facility] Comment:Desirable Cholestero l: less than 200 mg/dLBorderline High Cholesterol: 200-239 mg/dLHigh Cholesterol: greater than 239 mg/dL LDL Cholesterol Calculated 69 <100 mg/dL [facility] Comment:Desirable LDL: less than 100 mg/dLNear Optimal/Above Optimal LDL: 110- 129 mg/dLBorderline High LDL: 130-159 mg/dLHigh LDL: 160-189 mg/dLVery High LDL: greater than or equal to 190 mg/dL HDL Cholesterol 95 >40 mg/dL [facility] Comment:Desirable HDL: great er than 40 mg/dL Note: This HDL assay may give artificially low results in patients with liver disease. Blood 04/22/2024 11:2 7 AM EDT 04/22/2024 1:13 PM EDT Pauly Sánchez MD LAB BLOOD ORDERABLES Final Resul t Performing Organization Address City/[facility] Co de Phone Number [facility] [address] [place] [phone] * Hepatitis C Antibody with Reflex to HCV, RNA, Quantitative, Real-Time PCR (04/22/2024 11:27 AM EDT) Hepatitis C Antibody Nonreactive Nonreactive [facility] Comment:Antibodies to HCV no t detected; does not exclude early acuteHCV infection. Blood Venous blood specimen / Unknown 04/22/2024 11:27 AM EDT 04/22/2024 1:13 PM EDT Pauly Sánchez MD LAB BLOOD ORDERABLES Final Resul t Performing Organization Address City/[facility]/ZIP Co de Phone Number [facility] [address] [place] [phone] * Hm Colonoscopy (12/03/2021) Colonoscopy Normal Normal 12/03/2021 Shayy Buenrostro MD HEALTH MAINTENANCE Final Result from Last 3 Months or Most Recently Relevant to Health Maintenance Insurance [facility] STANDARD [employer] MEDICARE REPLACEMENT Care Teams Medical Coding Instructor Relationship Specialty Start Date End Date Pauly Sánchez MD [address] [place] [address] PCP - General Family Medicine 01/08/24
--- OUTSIDE RECORDS SUMMARY | 2025-06-16 17:19 | XMS_ITS | Encounter Summary ---
Author Organization [employer] Address [address] [place] [address] 7 [place] [address] Care Team Providers Care Refrigeration Engine Operator Name Role Phone Pauly Sánchez MD Primary Care Provider [phone] Reason for Visit * Reason Onset Date Comments july recall 06/16/2025 Encounter Details Date Type Department Care Team ([facility] Contact Info) Description 06/16/2025 Telephone [facility] MEDICINE [address] [place] [address] Pauly Sánchez MD [address] [place], [place] [phone] july recall Social History Tobacco Use Types Packs/Day Years Used Date Smoking Tobacco: Some Days Cigarettes 0.3 54 Passive Smoke Exposure: Current Smokeless Tobacco: Never Comments:Started 14 y of age ,until now, [...] Telephone Encounter - Leigh Bonilla MA - 06/16/2025 11:03 AM EST ..Telephone call to patient to schedule a recall appointment. No answer, Left voicemail to return call to clinic.. Recall letter sent. Visit type: Follow Up Appointment notes: DM Month due: July With: Gonzalo Please schedule appointment above if patient returns call documented in this encounter Plan of Treatment Not on file documented as of this encounter Visit Diagnoses Not on filedocumented in this encounter Additional Health Concerns Assessment Noted Time PHQ-9 Depression Total Score: 0 09/09/19 25 10:04 AM EST documented as of this encounter Care Teams Refrigeration Engine Operator Relationship Specialty Start Date End Date Pauly Sánchez MD [address] [place] [address] PCP - General Family Medicine 01/08/24 documented as of this encounter
--- OUTSIDE RECORDS SUMMARY | 2025-06-16 17:19 | XMS_ITS | Encounter Summary ---
Author Organization [employer] Address [address] [facility] 7t [place] [address] Care Team Providers Care Marketing Intern Name Role Phone Pauly Sánchez MD Primary Care Provider [phone] Encounter Details Date Type Department Care Team ([facility] st Contact Info) Description 05/15/2025 Orders Only [facility] MEDICINE [address] [place] [address] Pauly Sánchez MD [address] [place] [address] Chronic left shoulder pain Social History Tobacco [...] documented as of this encounter Care Teams Marketing Intern Relationship Specialty Start Date End Date Pauly Sánchez MD [address] [place] [address] PCP - General Family Medicine 01/08/24 documented as of this encounter
--- OUTSIDE RECORDS SUMMARY | 2025-06-16 17:19 | XMS_ITS | Encounter Summary ---
Author Organization [employer] Address [address] [place] [address] Care Team Providers Care Career Technical Counselor Name Role Phone Kary Ordoñez Primary Care Provider Kelsea Sandy Daley MD Primary Care Pro vider Pauly Sánchez MD Primary Care Provider [phone] Encounter Details Date Type Department Care Team (Late st Contact Info) Description 07/12/2022 Orders Only [facility] [address] [place] [address] Nereyda Castillo LPN Social History Tobacco Use [...] on filedocumented in this encounter Care Teams Career Technical Counselor Relationship Specialty Start Date End Date Kary Ordoñez FNP PCP - General Family Medicine 03/14/22 04/24/23 Sandy Avelar MD [address] [place] [address] PCP - General Internal Medicine 04/25/23 01/07/24 Pauly Sánchez MD [address] [place] [address] PCP - General Family Medicine 01/08/24 documented as of this encounter
== END 2025-06-16 14:22 | disposition home or self-care (01) ==
LOC: HO.HOS 13:50
PROVIDERS: PCP Family Medicine; Visit Provider Orthopaedic Surgery
DX: M75.41 Impingement syndrome of right shoulder (principal); Z98.890 Other specified postprocedural states
CPT/HCPCS: 20610

== ENCOUNTER → 2025-06-16 13:50 | Outpatient (BNVA) | payer MEDICARE, SELFPAY | PROVIDERS: PCP Family Medicine; Visit Provider Orthopaedic Surgery | DX: M75.41 Impingement syndrome of right shoulder (principal); Z98.890 Other specified postprocedural states | CPT/HCPCS: 20610; J0665; J1100; J2003 ==

== ENCOUNTER 2025-07-03 15:45 | Outpatient (AMB) | payer MEDICARE, MEDICAID, SELFPAY ==
[2025-07-03 15:53] VITALS: BP 102/62; PULSE 65; O2SAT 95; BMI 21.0
--- NOTE | 2025-07-03 15:53 | A.OFFVIS_ITS ---
Vital Signs 07/03/25 15:53 Height 5 ft 6 in Weight 130 lb BMI 21.0 BP 102/62 Blood Pressure Location Lt brachial Position Sitting Pulse 65 Pulse Source Pulse Oximeter Pulse Oximetry (%) 95 Oxygen Delivery Method Room Air Intake Visit Reasons: COPD Intake Note: pt is here for follow up and states he does get short of breath with exertion or stairs. 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 HE HAS BEEN USING SYMBICORT 80-4.52 PUFFS B.I.D. AND INCRUSE ELLIPTA ONCE A DAY. HE HAS HAD NO ACUTE ATTACKS OF WHEEZING OR SHORTNESS OF BREATH. HE DOES GET SHORT OF BREATH IF HE CLIMBS MORE THAN 2 FLIGHTS OF STAIRS. HE HAS HAD NO ACUTE RESPIRATORY INFECTION. HE IS STILL ON METHADONE 45 MG P.O. DAILY DENIES USING ANY ILLICIT DRUGS. [facility] Medical History Methadone use Hepatitis Memory impairment Asthma-COPD overlap syndrome Personal history of nicotine dependence Arthritis Shoulder pain, bilateral Mood disorder Inguinal hernia Dizziness Heartburn Vitamin D deficiency Anxiety Surgical History History of right inguinal hernia repair (~03/05/24) Hx of hemorrhoidectomy Hx of removal of cyst Hx of colonoscopy History of esophagogastroduodenoscopy (EGD) Family History Father Cancer Father Cancer Other HTN (hypertension) Social History Are you a primary acute care physician to a significant other at home: No Do you presently have visiting nurse or other home services: No Comment: counts correct Patient Tobacco Use Status: Current everyday Tobacco user Tobacco use type: Cigarette Cigarette Packs Per Day: 0.25 Cigarettes Per Day: 3 Years Smoked: 53 Review of Systems Const All systems reviewed & are unremarkable except as noted in HPI and below Eyes Reports no additional complaints ENT Reports no additional complaints Card Denies chest pain, Denies irregular heart rhythm and Reports dyspnea on exertion (mild) Resp Reports as per HPI and Reports dyspnea on exertion (mild) GI Reports dyspepsia and Reports heartburn (Controlled with med) Reports no additional complaints Musc Reports back pain and Reports myalgias Skin/Breast Reports system reviewed and no additional complaints, except as documented Neuro Reports no additional complaints Psych Reports anxiety Endo Reports no additional complaints Tarun/Lymph Reports no additional complaints Aller/Immun Reports no additional complaints Physical Exam Vital Signs: Last Vital Signs Pulse 65 07/03/25 15:53 BP 102/62 07/03/25 15:53 Pulse Ox 95 07/03/25 15:53 Oxygen Delivery Method Room Air 07/03/25 15:53 BMI result Body Mass Index 21.0 Const Other: He is of a thin build, otherwise healthy looking General: comfortable, no acute distress, alert and awake Orientation/consciousness: patient oriented x3 HEENT Head: Yes normal to inspection General nose exam: No nasal polyps present and No nasal discharge present Face and sinus: Yes sinuses nontender Mouth: oropharynx normal Throat: Yes posterior oropharynx normal Eyes General: appearance normal, both eyes and all related structures Neck Neck: Yes normal visual inspection, Yes no lymphadenopathy, Yes trachea midline and Yes no JVD Thyroid: Thyroid normal Chest Chest palpation & inspection: normal inspection of the chest, normal palpation of entire chest wall and no tenderness Resp Other: Percussion note hyper-resonant, Breath sounds are moderately distant with Prolonged expiratory phase NO WHEEZES OR CREPITATIONS ARE HEARD TODAY. Cardio Palpation: normal PMI Rate: regular rate Rhythm: regular rhythm Heart sounds: no gallops and no murmurs Peripheral pulses: Peripheral pulses 2+ throughout GI Palpation (GI): Soft to palpation, nontender, No hepatosplenomegaly present and no masses Auscultation: normal bowel sounds Back/Spine/Pelvis Thoracic/Lumbar Spine: thoracic and lumbar spine normal to inspection Skin General skin exam: no rashes or lesions noted Neuro General: patient oriented x3 and no focal motor deficits Cranial nerves: Yes CN's II-XII intact bilaterally Extrem General: Yes normal to inspection, Yes no clubbing, cyanosis or edema and Yes no calf tenderness Psych Appearance: grossly normal and well kempt Speech and movement: Normal speech and movement present Assessment & Plan Assessment & Plan (1) Asthma-COPD overlap syndrome: Comment: ACOS [place] with ICS/LABA Combination and has done well Currently on WIXELA 250-50 1 INHALATION B.I.D. Using only once a day, Rarely needs ALBUTEROL HFA. Physical Capacity good, no dyspnea with work. HE IS ALSO USING INCRUSE ELLIPTA 1 INHALATION DAILY. Code(s): J44.9 - Chronic obstructive pulmonary disease, unspecified Category: Medical Plan: CONTINUE THE SAME MEDICATIONS (2) Personal history of nicotine dependence: Comment: HE HAS LONGSTANDING HISTORY OF SMOKING AND CURRENTLY SMOKING ABOUT 3 CIGARETTES A DAY. Code(s): Z87.891 - Personal history of nicotine dependence Category: Medical Plan: I ADVISED HIM TO QUIT COMPLETELY. BECAUSE HE HAS HISTORY OF OPIOIDS DEPENDENCE, AND IS CURRENTLY ON METHADONE. IT MAY BE HARD FOR HIM TO QUIT COMPLETELY. Coding Level of Care Code Est Pt Level 3 (58644) Diagnoses Asthma-COPD overlap syndrome J44.9 Personal history of nicotine dependence Z87.891
--- OUTSIDE RECORDS SUMMARY | 2025-07-03 19:30 | XMS_ITS | Encounter Summary ---
Author Organization [email or web address] Address [address] [place] [address] 7 [place] [address] Care Team Providers Care After School Driver Name Role Phone Kary Ordoñez MOBILE SOLUTIONS ARCHITECT Primary Care Provider Sandy Chacon MD Primary Care Pro vider Pauly Sánchez MD Primary Care Provider [phone] Encounter Details Date Type Department Care Team (Late st Contact Info) Description 07/12/2022 Orders Only [facility] [address] [place] [address] Nereyda Castillo LPN Social History Tobacco Use [...] as of this encounter Plan of Treatment Upcoming Encounters Date Type Department Care Team (Late st Contact Info) Description 08/13/2025 11:00 AM EST Office Visit [facility] MEDICINE [address] [place] [address] Pauly Sánchez MD [address] [place] [address] documented as of this encounter Visit Diagnoses Not on filedocumented in this encounter Care Teams After School Driver Relationship Specialty Start Date End Date Kary Ordoñez FNP PCP - General Family Medicine 03/14/22 04/24/23 Sandy Avelar MD [address] [place] [address] PCP - General Internal Medicine 04/25/23 01/07/24 Pauly Sánchez MD [address] [place] [address] PCP - General Family Medicine 01/08/24 documented as of this encounter
--- OUTSIDE RECORDS SUMMARY | 2025-07-03 19:30 | XMS_ITS | Clinical Summary ---
Author Organization [employer] Address [address] [place] [address] [address] [place] [address] Care Team Providers Care Fuel Pilot Engineer Name Role Phone Josr Sánchez MD Primary Care Provider [phone] Allergies No known active allergies Medications acetaminophen [...] 180 tablet 2 09/09/19 25 Active Umeclidinium Everly (Incruse Ellipta) 62.5 MCG/ACT aerosol powder Inhale 1 Act (62.5 mcg) Once per day. 30 Act 11 5 4:42 PM EST 09/09/19 25 Active acetaminophen-c odeine (Tylenol w/ [...] 8 PUFF / DAY 18 g 3 5 4:42 PM EST 06/02/20 25 Active budesonide-form oterol (Symbicort) 80-4.5 MCG/ACT inhalerIndicati ons:Chronic obstructive pulmonary disease, unspecified COPD type (CMS/HCC) (HCC) INHALE 2 PUFFS BY MOUTH TWICE DAILY IN THE MORNING AND AT BEDTIME, RINSE MOUTH AFTER USING. DO NOT SWALLOW 10.2 g 1 5 4:42 PM EST 06/05/20 25 Active Symbicort 80-4.5 MCG/ACT inhalerIndicati ons:Chronic obstructive [...] acromioclavicular osteoarthritis. - seen by Dr. Graham, [facility] on 02/16/24 [...] AM EDT): - EGD by Dr. Casas [facility] [place] on 12/03/21. No malignancy or atypical cells. Negative H. pylori - continue famotidine - reduce tobacco use, minimize NSAIDs use Assessment & Plan (09/09/2024 10:27 AM EST): - EGD by Dr. Casas [facility] [place] on 12/03/21. No malignancy or atypical cells. Negative H. pylori - continue famotidine - reduce tobacco use, minimize NSAIDs use Assessment & Plan (07/18/2024 5:32 AM EST): - EGD by Dr. Casas [facility] [place] [facility] on 12/03/21. No malignancy or atypical cells. Negative H. Pylori. - continue famotidine, will check H.pylori - reduce tobacco use, minimize NSAIDs use Assessment & Plan (04/22/2024 10:29 AM EDT): - EGD by Dr. Casas [facility] [place] [facility] on 12/03/21. [...] tobacco use F/u prn Asthma-COPD overlap syndrome (CMS/HCC) Assessment & Plan (12/25/2024 6:47 AM EDT): Stable - continue umeclidinium ,Symbicort - continue albuterol PRN reports few times a week - tobacco smoking cessation advised Assessment & Plan (12/18/2024 9:06 AM EDT): - 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 see education consultant, last seen in Mar 2024, patient was prescribed Wixela but does not have currently - continue umeclidinium (Incruse) - restart SMART with budesonide / formoterol (Symbicort) - continue albuterol PRN - continue working on smoking cessation - advised to reschedule chest CT, given number to call Assessment & Plan (09/13/2024 11:53 AM EST): - 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 see education consultant, last seen in Mar 2024, patient was prescribed Wixela but does not have currently - continue umeclidinium (Incruse) - restart SMART with budesonide / formoterol (Symbicort) - continue albuterol PRN - continue working on smoking cessation - advised to reschedule chest CT, given number to call Assessment & Plan (09/08/2024 6:15 PM EST): >>ASSESSMENT AND PLAN FOR CHRONIC OBSTRUCTIVE PULMONARY DISEASE ([facility]) WRITTEN ON 04/04/2023 6:07 PM BY OSMEL BALTAZAR Refill symbicort Care managed by Pulm F/u PRN Assessment & Plan (09/08/2024 6:15 PM EST): >>ASSESSMENT AND PLAN FOR CHRONIC OBSTRUCTIVE PULMONARY DISEASE ([facility]/HCC) WRITTEN ON 01/16/2024 12:06 PM BY BERT DAVIES - 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 see education consultant, last seen in JUN 2022, patient was [...] VINCE MANCILLA - 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 see education consultant, last seen in JUN 2022, patient was [...] SÁNCHEZ MD - 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 see education consultant, last seen in JUN 2022, patient was [...] will follow-up in 3 months 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) 03/07/2022 Assessment & Plan (12/18/2024 9:06 AM [...] Type Department Care Team Description 06/16/2025 Telephone [facility] [address] [place] [address] Josr Sánchez MD luke recall 06/05/2025 Refill [facility] [address] [place] [address] Josr Sánchez MD Chronic obstructive pulmonary disease, unspecified COPD type (CMS/HCC) ([facility]) 05/31/2025 Refill [facility] [address] [place] [address] Josr Sánchez MD 05/15/2025 Telephone [facility] [address] [place] [address] Grecia Cosby RN 05/15/2025 Orders Only [facility] [address] [place] [address] Josr Sánchez MD Chronic left shoulder pain 05/14/2025 Telephone [facility] [address] [place] [address] Grecia Cosby, RN Med Refill 05/13/2025 Telephone [facility] [address] [place] [address] Josr Sánchez MD Med Refill from Last 3 Months Immunizations Immunization Administration [...] t he electric, gas, oil or water [employer] threatened to shut off services in your [...] Description 08/13/2025 11:00 AM EST Office Visit [facility] [address] [place], [place] [phone] Josr Sánchez MD [address] [place] [address] Health Maintenance Due Date Last Done Comments [...] 11:27 AM EDT) Triglycerides 31 <150 mg/dL [facility] Comment:Desirable Triglyceri de: less than 150 mg/dLBorderline High Triglyceride 150-199 mg/dLHigh Triglyceride: 200-499 mg/dLVery High Triglyceride: greater than or equal to 5OO mg/dL Cholesterol 170 <200 mg/dL [facility] Comment:Desirable Cholestero l: less than 200 mg/dLBorderline High Cholesterol: 200-239 mg/dLHigh Cholesterol: greater than 239 mg/dL LDL Cholesterol Calculated 69 <100 mg/dL [facility] Comment:Desirable LDL: less than 100 mg/dLNear Optimal/Above Optimal LDL: 110- 129 mg/dLBorderline High LDL: 130-159 mg/dLHigh LDL: 160-189 mg/dLVery High LDL: greater than or equal to 190 mg/dL HDL Cholesterol 95 >40 mg/dL [facility] Comment:Desirable HDL: great er than 40 mg/dL Note: This HDL assay may give artificially low results in patients with liver disease. Blood 04/22/2024 11:2 7 AM EDT 04/22/2024 1:13 PM EDT Josr Sánchez MD LAB BLOOD ORDERABLES Final Resul t Performing Organization Address City/[facility] Co de Phone Number [facility] [address] [place] [phone] * Hepatitis C Antibody with Reflex to HCV, RNA, Quantitative, Real-Time PCR (04/22/2024 11:27 AM EDT) Hepatitis C Antibody Nonreactive Nonreactive [facility] Comment:Antibodies to HCV no t detected; does not exclude early acuteHCV infection. Blood Venous blood specimen / Unknown 04/22/2024 11:27 AM EDT 04/22/2024 1:13 PM EDT Josr Sánchez MD LAB BLOOD ORDERABLES Final Resul t Performing Organization Address City/[facility] Co de Phone Number [facility] [address] [place] [phone] * Hm Colonoscopy (12/03/2021) Colonoscopy Normal Normal 12/03/2021 Historical Provider HEALTH MAINTENANCE Final Result from Last 3 Months or Most Recently Relevant to Health Maintenance Insurance [facility] MED[employer]ARE REPLACEMENT Care Teams Fuel Pilot Engineer Relationship Specialty Start Date End Date Josr Sánchez MD [address] [place] [address] PCP - General Family Medicine 01/08/24
--- OUTSIDE RECORDS SUMMARY | 2025-07-03 19:30 | XMS_ITS | Encounter Summary ---
Author Organization [employer] Address [address] [place] [address] [place] [address] Care Team Providers Care Evp Business Development Name Role Phone Pauly Sánchez MD Primary Care Provider [phone] Reason for Visit * Reason Onset Date Comments Lab Orders 12/13/2024 Encounter Details Date Type Department Care Team ([facility] Contact Info) Description 12/13/2024 Telephone [facility] [address] [place] [address] Pauly Sánchez MD [address] [place] [address] Lab Orders (/) Social History Tobacco Use [...] EDT Returned phone call to Sima at [facility]. Pt had appt with Dr Grhaam today (note under Encounters). Pt scheduled for left rotator cuff repair surgery on 2025 under general anesthesia. Per [facility], pt does not need pre-op clearance but [facility] is requesting EKG and labs (BMP, CBCw/ diff) to be completed at upcoming 12/18/24 appt. They would like the office note, EKG, and labs faxed to them after. If anything unusual develops then, pt would likely need pre-op clearance. They are having the pt follow up with evaluator transfer students beforehand and will contact the pt to inquire about which methadone clinic he does to to get guidance on methadone before surgery. Advised Sima can send message to PCP to advise as needed. * Telephone Encounter - Constance Joya - 12/13/2024 11:12 AM EDT Tc from Sima with [facility] requesting lab work and EKG order. F. [phone] P. [phone] documented in this encounter Plan of Treatment Upcoming Encounters Date Type Department Care Team (Late st Contact Info) Description 08/13/2025 11:00 AM EST Office Visit [facility] [address] [place] [address] Pauly Sánchez MD [address] [place] [address] documented as of this encounter Visit Diagnoses Not on filedocumented in this encounter Additional Health Concerns Assessment Noted Time PHQ-9 Depression Total Score: 0 09/09/19 25 10:04 AM EST documented as of this encounter Care Teams Evp Business Development Relationship Specialty Start Date End Date Pauly Sánchez MD [address] [place] [address] PCP - General Family Medicine 01/08/24 documented as of this encounter
--- OUTSIDE RECORDS SUMMARY | 2025-07-03 19:30 | XMS_ITS | Encounter Summary ---
Author Organization [employer] Address [address] [facility] [address] [place] [address] Care Team Providers Care Business Services Sales Agent Name Role Phone Pauly Sánchez MD Primary Care Provider [phone] Encounter Details Date Type Department Care Team (Late st Contact Info) Description 08/23/2024 Orders Only [facility] [address] [place] [address] Pauly Sánchez MD [address] [place] [address] Chronic left shoulder pain Social History Tobacco [...] Description 08/13/2025 11:00 AM EST Office Visit [facility] [address] [place] [address] Pauly Sánchez MD [address] [place] [address] documented as of this encounter Visit Diagnoses Diagnosis Chronic left shoulder pain Pain in joint, shoulder region documented in this encounter Additional Health Concerns Assessment Noted Time PHQ-9 Depression Total Score: 0 01/16/20 9:53 AM EDT documented as of this encounter Care Teams Business Services Sales Agent Relationship Specialty Start Date End Date Pauly Sánchez MD [address] [place] [phone] PCP - General Family Medicine 01/08/24 documented as of this encounter
--- OUTSIDE RECORDS SUMMARY | 2025-07-03 19:30 | XMS_ITS | Encounter Summary ---
Author Organization [employer] Address [address] [facility] [address] [place] [address] Care Team Providers Care Baker Pastry Name Role Phone Pauly Sánchez MD Primary Care Provider [phone] Encounter Details Date Type Department Care Team ([facility] st Contact Info) Description 05/15/2025 Orders Only [facility] [address] [place] [address] Pauly Sánchez MD [address] [place] [address] Chronic left shoulder pain Social History Tobacco [...] Description 08/13/2025 11:00 AM EST Office Visit [facility] [address] [place] [phone] Pauly Sánchez MD [address] [place] [phone] documented as of this encounter Visit Diagnoses Diagnosis Chronic left shoulder pain Pain in joint, shoulder region documented in this encounter Additional Health Concerns Assessment Noted Time PHQ-9 Depression Total Score: 0 09/09/19 25 10:04 AM EST documented as of this encounter Care Teams Baker Pastry Relationship Specialty Start Date End Date Pauly Sánchez MD [address] [place] [phone] PCP - General Family Medicine 01/08/24 documented as of this encounter
== END 2025-07-03 16:15 | disposition home or self-care (01) ==
LOC: HO.HPS 15:45
PROVIDERS: PCP Family Medicine; Visit Provider Internal Medicine
DX: J44.9 Chronic obstructive pulmonary disease, unspecified (principal); Z87.891 Personal history of nicotine dependence
CPT/HCPCS: 99213

== ENCOUNTER → 2025-07-03 15:45 | Outpatient (BNVA) | payer MEDICARE, SELFPAY | PROVIDERS: PCP Family Medicine; Visit Provider Internal Medicine | DX: J44.9 Chronic obstructive pulmonary disease, unspecified (principal); Z87.891 Personal history of nicotine dependence | CPT/HCPCS: 99212 ==